=== PATIENT | female | born 1935 | race Caucasian/White ===

== ENCOUNTER 2019-12-24 08:35 | Inpatient (IN) | payer MEDICARE, SELFPAY ==
[2019-12-24] VITALS (18 sets, daily range): BP systolic 114–169; BP diastolic 50–88; PULSE 75–108; RESP 16–20; TEMP 36.4–37.4; O2SAT 93–100; BMI 20.4
--- NOTE | 2019-12-24 08:40 | CTR_ITS ---
PROCEDURE INFORMATION: Exam: CT Abdomen And Pelvis With Contrast Exam date and time: 12/24/2019 8:43 AM Age: 84 years old Clinical indication: Nausea and vomiting; Additional info: Abd pain TECHNIQUE: Imaging protocol: Computed tomography of the abdomen and pelvis with intravenous contrast. Radiation optimization: All CT scans at this facility use at least one of these dose optimization techniques: automated exposure control; mA and/or kV adjustment per patient size (includes targeted exams where dose is matched to clinical indication); or iterative reconstruction. Contrast material: VISI 320; Contrast volume: 75 ml; Contrast route: RT AC; COMPARISON: CT abdomen pelvis wo con [id number] 11/18/2017 11:02 AM RADIATION DOSE METRICS: Total DLP: 457.44 mGy-cm FINDINGS: Inferior thorax: Hyperinflation. Hiatal hernia. Liver: No focal hepatic mass. Gallbladder and bile ducts: Cholelithiasis. No biliary ductal dilatation. Pancreas: No pancreatic mass or ductal dilatation. Spleen: No splenomegaly. Adrenals: Unremarkable adrenals. Kidneys and ureters: Renal cysts, including a 11 mm right lower pole cyst. Marked left hydronephrosis in association with a 10 mm left UPJ calculus. Nonobstructing 1 and 10 mm left renal calculi. Asymmetric infiltration of left perinephric fat and mild fascial thickening. Stomach and bowel: Questionable wall thickening in the nondistended stomach. Diverticulosis and mild sigmoid colon wall thickening. Appendix: No acute appendicitis. Intraperitoneal space: No significant free fluid. Vasculature: Prominent vascular calcification. No abdominal aortic aneurysm. Lymph nodes: Subcentimeter lymph nodes. Bladder: Normal bladder morphology. Reproductive: Status post hysterectomy. Bones/joints: Osteopenia and degenerative change. Grade 1 anterior listhesis of L4 on L5 and L5 on S1. CT/CT abdomen pelvis w con* [id number] IMPRESSION: 1. Marked left hydronephrosis in association with a 10 mm left UPJ calculus. 2. Hiatal hernia. 3. Cholelithiasis. 4. Nonobstructing 1 and 10 mm left renal calculi. 5. Additional findings as described above. Radiation Dose CTDIVOL = (mGy): DLP = 457.44 (mGy-cm)
[2019-12-24 08:56] LABS: Basophils % 0.2 %; Eosinophils % 0.1 %; Hematocrit 45.4 % (37.0-47.0); Hemoglobin 14.2 g/dL (11.5-15.3); Lymphocytes # 0.8 10^3/uL (0.8-4.8); Lymphocytes % 5.7 %; Mean Corpuscular HGB Conc 31.3 g/dL (30.0-36.0); Mean Corpuscular Hemoglobin 29.5 pg (28.0-34.0); Mean Corpuscular Volume 94.2 fL (81-99); Mean Platelet Volume 9.5 fL (7.4-10.4); Monocytes # 0.5 10^3/uL (0.2-0.9); Monocytes % 3.5 %; Neutrophils # 13.1 10^3/uL (1.8-7.7); Neutrophils % 90.2 %; Nucleated Red Blood Cells % 0 %; Platelet Count 269 10^3/cmm (130-400); Red Blood Count 4.82 10^6/uL (4.1-5.3); Red Cell Distribution Width 13.7 % (12.1-15.1); White Blood Count 14.5 10^3/uL (4.0-10.0)
--- NOTE | 2019-12-24 08:56 | CTR_ITS ---
PROCEDURE INFORMATION: Exam: CT Head Without Contrast Exam date and time: 12/24/2019 9:25 AM Age: 84 years old Clinical indication: Altered mental status/memory loss; Additional info: AMS TECHNIQUE: Imaging protocol: Computed tomography of the head without contrast. Radiation optimization: All CT scans at this facility use at least one of these dose optimization techniques: automated exposure control; mA and/or kV adjustment per patient size (includes targeted exams where dose is matched to clinical indication); or iterative reconstruction. COMPARISON: MR charles's wo con [id number] 05/10/2018 9:46 AM RADIATION DOSE METRICS: Total DLP: 671.67 mGy-cm FINDINGS: Brain: Symmetric prominence of the cortical and cerebellar sulci. Small-vessel ischemic change including bilateral basal ganglia lacunar infarcts, which can be better characterized with MRI if clinically indicated. No acute cortical infarct, mass effect, or intracranial hemorrhage. Ventricles: Age-appropriate caliber of the ventricles. Bones/joints: Benign appearing ovoid lytic lesions in the occiput. Sinuses: No sinus fluid. Mastoid air cells: No mastoid effusion. Vasculature: Vascular and dural calcification. Soft tissues: Punctate cutaneous calcification in the left parietal region. CT/CT head wo con* [id number] IMPRESSION: Small-vessel ischemic change including bilateral basal ganglia lacunar infarcts, which can be better characterized with MRI if clinically indicated. Radiation Dose CTDIVOL = (mGy): DLP = 671.67 (mGy-cm)
[2019-12-24 09:11] LABS: Alanine Aminotransferase 28 U/L (0-33); Albumin Level 4.2 g/dL (3.5-5.2); Alkaline Phosphatase 105 IU/L (35-105); Anion Gap 19.9 (5-19); Aspartate Amino Transferase 36 U/L (0-32); Blood Urea Nitrogen 17 mg/dL (8-23); Calcium 10.1 mg/dL (8.5-10.5); Carbon Dioxide 22 mmol/L (22-29); Chloride 100 mmol/L (98-107); Globulin 3.5 g/dL (1.3-4.6); Glucose 127 mg/dL (65-115); Lipase 60 U/L (13-60); Osmolality Calculated 284 mOsm/kg (285-295); Potassium 3.9 mmol/L (3.5-5.1); Sodium 138 mmol/L (136-145); Total Protein 7.7 g/dL (6.6-8.7)
--- NOTE | 2019-12-24 09:18 | ED_ITS ---
HPI - Abdominal Pain General: Chief Complaint: Abdominal Pain Stated Complaint: ABD PAIN Time Seen by Provider: 12/24/19 08:39 History of Present Illness: HPI narrative: 84-year-old lady, lives at home. She complains of belly pain that started yesterday. She is vomited once. She localizes the pain across her upper abdomen. No fever. She has had some chills, but says it is because it is cold in the emergency room. She said she had small amounts of nonbloody liquid stool yesterday. She is also been having some mental status problems for the last few months. Family noted that she has been known to talk to her late , and has been hearing voices. MD elicited complaint: abdominal pain Onset (ago): day(s) (1) Location: Diffuse and Epigastric Quality: cramping Radiation: none Exacerbating factors: nothing Associated Symptoms: Reports diarrhea, nausea and vomiting; Denies dysuria, fever(s) and hematuria Review of Systems Const: Denies: fever(s) Eyes: Denies: change in vision or blurry vision ENMT: Denies: odynophagia, swelling of lips/tongue, bleeding gums, dental pain, change in hearing, epistaxis, post nasal drip or sinus pain Card: Denies: chest pain, palpitations, irregular heart rhythm, edema, swelling of feet/ankles, dyspnea on exertion or orthopnea Resp: Denies: dyspnea, productive cough, non-productive cough or wheezing GI: Reports: nausea, vomiting and diarrhea : Denies: dysuria, urinary frequency, urinary urgency or hematuria Musc: Denies: neck pain, back pain, joint redness or joint warmth Skin/Breast: Reports: pruritus; Denies: rash or erythema Neuro: Reports: confusion; Denies: headache(s), dizziness or vertigo Psych: Reports: visual hallucinations and auditory hallucinations; Denies: anxiety PFSH ED PFSH: Medical History (Updated 12/24/19 @ 11:36 by Michael Syed MD) CAD (coronary artery disease) Chronic kidney disease, stage II (mild) Dementia GERD (gastroesophageal reflux disease) Hyperlipidemia Hypertension Surgical History (Updated 12/24/19 @ 11:36 by Michael Syed MD) History of coronary angioplasty History of hysterectomy History of knee surgery History of tubal ligation Social History Smoking and tobacco status: former smoker Physical Exam Const: GENERAL APPEARANCE: well developed ORIENTATION/CONSCIOUSNESS: Yes oriented to person and Yes oriented to place HENMT: COMMON NORMALS: normocephalic, external ears normal and Normal external nose present HEAD & SCALP: normocephalic FACE & SINUS: normal facial exam NOSE: Normal external nose present and No nasal discharge present EXTERNAL EAR: Yes external ears normal MOUTH: tongue normal TEETH & GINGIVA: no abnormal tooth and associated gingiva THROAT: posterior oropharynx normal; no peritonsillar mass Eye: COMMON NORMALS: Equal, round and reactive pupils present, EOMs intact bilaterally and conjunctivae normal EYELID: eyelids normal CONJUNCTIVA: Yes conjunctivae normal PUPIL: Yes Equal, round and reactive pupils present Neck/C-Spine: GENERAL: No tracheal deviation Chest: COMMONS NORMALS: normal inspection of the chest CHEST: No tenderness Resp: COMMON NORMALS: clear to auscultation bilaterally EFFORT & INS PECTION: No tachypneic, No respiratory distress, No retractions, No uses accessory muscles and No tracheal deviation AUSCULTATION: clear to auscultation bilaterally, no rhonchi, no wheezes and lung sounds not diminished Cardio: COMMON NORMALS: regular rate and regular rhythm RATE: regular rate RHYTHM: regular rhythm HEART SOUNDS: no murmurs PERIPHERAL PULSES: radial pulses present GI: INSPECTION: No abdominal distension AUSCULTATION: No Hyperactive bowel sounds present and No Hypoactive bowel sounds present PALPATION: Yes Tenderness to palpation present (GI) Details: LLQ and LUQ, No Guarding due to palpation present (GI) and No Rigid due to palpation PERCUSSION: no dullness to percussion and no tympanic to percussion Neuro: SENSORIUM/ORIENTATION: Yes oriented to person and Yes oriented to place Psych: COMMON NORMALS: mental status grossly normal Skin: COMMON NORMALS: no rashes or lesions noted GENERAL SKIN EXAM: no rashes or lesions noted Course Consultations: Consultation #1: ayden Consultation #2: thierry Vital Signs: Vital signs: Vital Signs Temperature 98.3 F 12/24/19 08:42 Pulse Rate 100 12/24/19 08:42 Respiratory Rate 16 12/24/19 08:42 Blood Pressure 161/68 12/24/19 08:42 Pulse Oximetry 100 12/24/19 08:42 MDM - Abdominal Pain MDM Narrative: Medical decision making narrative: 84-year-old lady presents with nausea and belly pain. She also has some mental status change. No fever. White count of 14.5 with 90% neutrophils. Urine, which was a in and out cath, but appeared somewhat contaminated, shows likely infection. CT shows a 10 mm obstructing UPJ stone with hydronephrosis on the left. Have spoken with urology and hospitalist team. She has had Zosyn here Lab Data: Labs: Lab Results 12/24/19 12/24/19 12/24/19 Range/Units 08:45 08:45 08:45 WBC 14.5 H (4.0-10.0) 10^3/ uL RBC 4.82 (4.1-5.3) 10^6/u L Hgb 14.2 (11.5-15.3) g/dL Hct 45.4 (37.0-47.0) % MCV 94.2 (81-99) fL MCH 29.5 (28.0-34.0) pg MCHC 31.3 (30.0-36.0) g/dL RDW 13.7 (12.1-15.1) % Plt Count 269 (130-400) 10^3/c mm MPV 9.5 (7.4-10.4) fL Neut % (Auto) 90.2 % Lymph % (Auto) 5.7 % [place] % (Auto) 3.5 % Eos % (Auto) 0.1 % Baso % (Auto) 0.2 % Neut # (Auto) 13.1 H (1.8-7.7) 10^3/u L Lymph # (Auto) 0.8 (0.8-4.8) 10^3/u L [place] # (Auto) 0.5 (0.2-0.9) 10^3/u L Eos # (Auto) 0.0 (0.0-0.8) 10^3/u L Baso # (Auto) 0.0 (0.0-0.1) 10^3/u L Nucleated RBC % (a uto) 0 % Nucleated RBCs # 0.0 /100WBC Sodium 138 (136-145) mmol/L Potassium 3.9 (3.5-5.1) mmol/L Chloride 100 (98-107) mmol/L Carbon Dioxide 22 (22-29) mmol/L Anion Gap 19.9 H (5-19) BUN 17 (8-23) mg/dL Creatinine 1.3 H (0.5-0.9) mg/dL Glucose 127 H (65-115) mg/dL Calculated Osmolal ity 284 L (285-295) mOsm/k g Lactate 2.0 (0.5-2.2) mmol/L Calcium 10.1 (8.5-10.5) mg/dL Total Bilirubin 1.0 (0.15-1.2) mg/dL AST 36 H (0-32) U/L ALT 28 (0-33) U/L Alkaline Phosphata se 105 (35-105) IU/L Total Protein 7.7 (6.6-8.7) g/dL Albumin 4.2 (3.5-5.2) g/dL Globulin 3.5 (1.3-4.6) g/dL Lipase 60 (13-60) U/L Urine Color (Yellow) Urine Appearance (CLEAR) Urine pH (5-7) Ur Specific [place]it y (1.005-1.030) Urine Protein (Negative) Urine Glucose (UA) (Normal) Urine Ketones (Negative) Urine Blood (Negative) Urine Nitrate (Negative) Urine Bilirubin (NEGATIVE) Prot Sulfosalicyli c Acd (Negative) Urine Urobilinogen (Negative) mg/dL Ur Leukocyte Jazmine ase (Negative) Urine RBC (0-2) /hpf Urine WBC (0-5) /hpf Ur Squamous Epith Cells (0-5) Ur Transition Epit h Cell /hpf Urine Bacteria (NONE) Urine Mucus 12/24/19 Range/Units 09:00 WBC (4.0-10.0) 10^3/ uL RBC (4.1-5.3) 10^6/u L Hgb (11.5-15.3) g/dL Hct (37.0-47.0) % MCV (81-99) fL MCH (28.0-34.0) pg MCHC (30.0-36.0) g/dL RDW (12.1-15.1) % Plt Count (130-400) 10^3/c mm MPV (7.4-10.4) fL Neut % (Auto) % Lymph % (Auto) % [place] % (Auto) % Eos % (Auto) % Baso % (Auto) % Neut # (Auto) (1.8-7.7) 10^3/u L Lymph # (Auto) (0.8-4.8) 10^3/u L [place] # (Auto) (0.2-0.9) 10^3/u L Eos # (Auto) (0.0-0.8) 10^3/u L Baso # (Auto) (0.0-0.1) 10^3/u L Nucleated RBC % (a uto) % Nucleated RBCs # /100WBC Sodium (136-145) mmol/L Potassium (3.5-5.1) mmol/L Chloride (98-107) mmol/L Carbon Dioxide (22-29) mmol/L Anion Gap (5-19) BUN (8-23) mg/dL Creatinine (0.5-0.9) mg/dL Glucose (65-115) mg/dL Calculated Osmolal ity (285-295) mOsm/k g Lactate (0.5-2.2) mmol/L Calcium (8.5-10.5) mg/dL Total Bilirubin (0.15-1.2) mg/dL AST (0-32) U/L ALT (0-33) U/L Alkaline Phosphata se (35-105) IU/L Total Protein (6.6-8.7) g/dL Albumin (3.5-5.2) g/dL Globulin (1.3-4.6) g/dL Lipase (13-60) U/L Urine Color Yellow (Yellow) Urine Appearance Hazy A (CLEAR) Urine pH 8 H (5-7) Ur Specific Gravit y 1.015 (1.005-1.030) Urine Protein Trace (Negative) Urine Glucose (UA) Norm (Normal) Urine Ketones 1+ H (Negative) Urine Blood 3+ H (Negative) Urine Nitrate Negative (Negative) Urine Bilirubin Neg (NEGATIVE) Prot Sulfosalicyli c Acd Trace (Negative) Urine Urobilinogen Norm (Negative) mg/dL Ur Leukocyte Jazmine ase 2+ H (Negative) Urine RBC 10-15 H (0-2) /hpf Urine WBC 40-55 H (0-5) /hpf Ur Squamous Epith Cells 25-40 H (0-5) Ur Transition Epit h Cell 5-10 /hpf Urine Bacteria 2+ H (NONE) Urine Mucus 2+ Coding Level of Care Code ED Network Analyst for Chg Fwd Exam Comprehensive
[2019-12-24 09:26] LABS: Bilirubin Urine Neg (NEGATIVE); Blood Urine 3+ (Negative); Glucose Urine UA Norm (Normal); Ketones Urine 1+ (Negative); Nitrate Urine Negative (Negative); Protein Urine Trace (Negative); Specific Gravity, Urine 1.015 (1.005-1.030); Urine Appearance Hazy (CLEAR); Urine Color Yellow (Yellow); Urobilinogen Urine Norm (Negative); pH Urine 8 (5-7)
[2019-12-24 09:27] LABS: Add Urine Microscopic? YES; Leukocyte Esterase Urine 2+ (Negative); Sulfosalicylic Acid Urine Trace (Negative)
[2019-12-24 09:29] LABS: Add Urine Culture? No; Bacteria Urine 2+; Mucus Urine 2+; Squamous Epithelial Cell Urine 25-40 (0-5); WBC Urine 40-55 /hpf (0-5)
[2019-12-24] MEDS: ondansetron 2 mg/ML SDV 2 mL 4 MG IVP (09:40)
[2019-12-24] MEDS: iodixanol 320 mg/mL 100mL Btl IV (10:07)
[2019-12-24] MEDS: piperacillin-tazobactam 3.375 GM in sodium chloride 0.9% (plus) 50 ML IV (10:46)
--- NOTE | 2019-12-24 11:30 | ECG_ITS ---
Measurements Intervals [place] Rate: 94 P: 58 TX: 173 QRS: 34 QRSD: 76 T: 71 QT: 354 QTc: 444 SINUS RHYTHM Compared to ECG 12/29/2017 11:21:25 Sinus bradycardia no longer present Electronically Signed On 12-25-2019 7:50:09 CDT by Keith Coronel M.D. [email or web address]
--- NOTE | 2019-12-24 11:30 | P.HP_ITS ---
Providers/Chief Complaint Primary Care Provider: Rafael Fatima MD Chief Complaint: ABD PAIN History of Present Illness Sheri Montes is a 84 year old female who presents to the emergency department with abdominal pain, vomiting. There was some concern of chills. Daughter reports she had a fever as well, when the ambulance service picked her up. She has been sick since yesterday with vomiting and abdominal pain. Patient reports she feels better currently. Lately there is been some issues with hearing voices, cognitive concerns. She has some underlying dementia. No history of COVID exposure. Review of Systems General: Reports: 10 or more systems reviewed and unremarkable except in HPI and below Const: Reports: fever(s) and chills Eyes: Denies: change in vision ENMT: Denies: throat pain Card: Denies: chest pain Resp: Denies: dyspnea or productive cough GI: Reports: abdominal pain, nausea and vomiting; Denies: hematemesis, coffee ground emesis, hematochezia or melena : Denies: flank pain Skin/Breast: Denies: rash Neuro: Denies: headache(s) Psych: Denies: anxiety Endo: Denies: polyuria Patrick/Lymph: Denies: easy bruising All/Imm: Denies: urticaria Medications/Allergies Home Medications Medication Instructions Recorded Confirmed Last Taken Type amlodipine 5 mg PO DAILY 12/24/19 12/24/19 12/22/19 History aspirin 40.5 mg PO DAILY 12/24/19 12/24/19 12/22/19 History donepezil 5 mg PO DAILY 12/24/19 12/24/19 12/22/19 History famotidine 20 mg PO DAILY 12/24/19 12/24/19 12/22/19 History metoprolol succinate 50 mg PO DAILY 12/24/19 12/24/19 12/22/19 History rosuvastatin 40 mg PO DAILY 12/24/19 12/24/19 12/22/19 History Allergies Allergy/AdvReac Type Severity Reaction Status Date / Time alendronate sodium Allergy Unknown Verified 12/24/19 08:42 [From Fosamax] tramadol Allergy Unknown Verified 12/24/19 08:46 PFSH Acute PFSH: Medical History (Updated 12/24/19 @ 11:52 by Michael Syed MD) CAD (coronary artery disease) Chronic kidney disease, stage II (mild) Dementia GERD (gastroesophageal reflux disease) Hyperlipidemia Hypertension Surgical History (Updated 12/24/19 @ 11:36 by Michael Syed MD) History of coronary angioplasty History of hysterectomy History of knee surgery History of tubal ligation Family History (Updated 12/24/19 @ 11:48 by Michael Syed MD) Other CAD (coronary artery disease) Social History (Updated 12/24/19 @ 11:48 by Michael Syed MD) Smoking and tobacco status: former smoker Alcohol intake: never Substance/Drug Use: never Vitals/I&O/Wt Last Vital Signs Temp 98.3 F 12/24/19 08:42 Pulse 100 12/24/19 08:42 Resp 16 12/24/19 08:42 BP 161/68 12/24/19 08:42 Pulse Ox 100 12/24/19 08:42 Weight last 48 hrs Weight 48.988 kg Physical Exam Narrative: EXAM NARRATIVE: General exam is an elderly female, in no apparent distress HEENT: Pupils equally round. Oropharynx clear. Neck is supple no lymphadenopathy or thyromegaly Cardiovascular regular rate and rhythm without murmur, no S3 or S4 Lungs clear no wheezing or crackles Abdomen is soft positive bowel sounds. No obvious organomegaly was deferred Extremities show no cyanosis clubbing or edema, cap refill brisk. Skin no rash Neuro no focal deficits Data : 12/24/19 08:45 12/24/19 08:45 Other data: AST slightly high at 36. Urinalysis demonstrates 10-15 reds, 40-55 white blood cells, 25-40 squamous and 2+ bacteria Head CT nothing acute. Old lacunar infarcts, small vessel ischemic change. CT abdomen with marked left hydronephrosis, hiatal hernia, cholelithiasis, 10 mm left UPJ stone A&P Assessment and plan (1) Hydronephrosis, left: Urgent neurology consultation Plan to go to the OR for stent Status: Acute (2) UTI (urinary tract infection): Rocephin 2 g IV every 24 hours Urine culture Status: Acute (3) Leukocytosis: Secondary to above Urine culture Blood culture Status: Acute Additional A&P Information Coronary artery disease History of GERD Hypertension Hyperlipidemia Dementia. Check TSH and B12 Multiple other medical problems as outlined above Discussed with patient CODE STATUS. She is allow natural . Certainly any procedures or interventions that we have time to discuss should be discussed Heparin for DVT prophylaxis following surgery Attestations Medical Necessity Statement*: Will need greater than 2 midnight stay for treatment of UTI with obstruction Time Spent in Patient Care: Greater than 35 minutes Coding Level of Care Code Acute Social Worker Masters for Caroline Fwd Diagnoses Hydronephrosis, left N13.30 UTI (urinary tract infection) N39.0 Leukocytosis D72.829
--- NOTE | 2019-12-24 11:46 | P.ANESASSM_ITS ---
Pre-Anesthetic Assessment Pre-Anesthetic Assessment: Height/Weight: Height 1.55 m Weight 48.988 kg Temp Pulse Resp BP Pulse Ox 98.3 F 100 16 161/68 100 12/24/19 08:42 12/24/19 08:42 12/24/19 08:42 12/24/19 08:42 12/24/19 08:42 Proposed Procedure: Operation Date: 12/24/19 12:15 Proposed Procedures p Cystoscopy(Not Applicable) - Nolan Aragon MD s Ureteral Stent Placement(Not Applicable) - Nolan Aragon MD Social: Social History: No alcohol and No tobacco Exam: Pre-Anes Outpt Exam: alert, oriented x 3, clear to auscultation bilaterally and regular rate & rhythm Airway: Submandibular: WNL Cervical ROM: WNL MP: 2 Dentition: Partials (upper) History/ROS: No significant history except as noted Pulmonary: Pulmonary: FIGUEROA and SOB CV/HEM: CV/HEM: CAD (stents 2014, stable since) and HTN : : Chronic renal Insufficiency Hepatic: Hepatic: None reported GI: GI: None reported Metabolic: Metabolic: Hyperlipidemia Musc/skel: Musc/skel: OA/DJD and Weakness (gen) Neuropsych: Neuropsych: Dementia Anesthetic Plan: ASA status: 4E Anesthesia: Anesthesia Evaluation and General Risk of > 500 ml blood loss (7ml/kg in children): No PFSH Anesthesia PFSH: Medical History (Updated 12/24/19 @ 11:36 by Michael Syed MD) CAD (coronary artery disease) Chronic kidney disease, stage II (mild) Dementia GERD (gastroesophageal reflux disease) Hyperlipidemia Hypertension Surgical History (Updated 12/24/19 @ 11:36 by Michael Syed MD) History of coronary angioplasty History of hysterectomy History of knee surgery History of tubal ligation Family History (Updated 12/24/19 @ 11:48 by Michael Syed MD) Other CAD (coronary artery disease) Social History Smoking and tobacco status: former smoker Data Anesthesia CBC & Chem 7: 12/24/19 08:45 12/24/19 08:45 Other Labs: Laboratory Results - last 48 hr 12/24/19 12/24/19 12/24/19 08:45 08:45 08:45 WBC 14.5 H RBC 4.82 Hgb 14.2 Hct 45.4 MCV 94.2 MCH 29.5 MCHC 31.3 RDW 13.7 Plt Count 269 MPV 9.5 Neut % (Auto) 90.2 Lymph % (Auto) 5.7 [place] % (Auto) 3.5 Eos % (Auto) 0.1 Baso % (Auto) 0.2 Neut # (Auto) 13.1 H Lymph # (Auto) 0.8 [place] # (Auto) 0.5 Eos # (Auto) 0.0 Baso # (Auto) 0.0 Nucleated RBC % (auto) 0 Nucleated RBCs # 0.0 Sodium 138 Potassium 3.9 Chloride 100 Carbon Dioxide 22 Anion Gap 19.9 H BUN 17 Creatinine 1.3 H Glucose 127 H Calculated Osmolality 284 L Lactate 2.0 Calcium 10.1 Total Bilirubin 1.0 AST 36 H ALT 28 Alkaline Phosphatase 105 Total Protein 7.7 Albumin 4.2 Globulin 3.5 Lipase 60 Urine Color Urine Appearance Urine pH Ur Specific [place] Urine Protein Urine Glucose (UA) Urine Ketones Urine Blood Urine Nitrate Urine Bilirubin Prot Sulfosalicylic Acd Urine Urobilinogen Ur Leukocyte Esterase Urine RBC Urine WBC Ur Squamous Epith Cells Ur Transition Epith Cell Urine Bacteria Urine Mucus 12/24/19 09:00 WBC RBC Hgb Hct MCV MCH MCHC RDW Plt Count MPV Neut % (Auto) Lymph % (Auto) [place] % (Auto) Eos % (Auto) Baso % (Auto) Neut # (Auto) Lymph # (Auto) [place] # (Auto) Eos # (Auto) Baso # (Auto) Nucleated RBC % (auto) Nucleated RBCs # Sodium Potassium Chloride Carbon Dioxide Anion Gap BUN Creatinine Glucose Calculated Osmolality Lactate Calcium Total Bilirubin AST ALT Alkaline Phosphatase Total Protein Albumin Globulin Lipase Urine Color Yellow Urine Appearance Hazy A Urine pH 8 H Ur Specific [place] 1.015 Urine Protein Trace Urine Glucose (UA) Norm Urine Ketones 1+ H Urine Blood 3+ H Urine Nitrate Negative Urine Bilirubin Neg Prot Sulfosalicylic Acd Trace Urine Urobilinogen Norm Ur Leukocyte Esterase 2+ H Urine RBC 10-15 H Urine WBC 40-55 H Ur Squamous Epith Cells 25-40 H Ur Transition Epith Cell 5-10 Urine Bacteria 2+ H Urine Mucus 2+ Cardiac Studies: No Data to Display
[2019-12-24] MEDS: sodium chloride 0.9% 1,000 ML 100 ML IV (12:03)
--- NOTE | 2019-12-24 12:07 | PM.CONSULT ---
Providers/Reason For Consult Consulting Physican/Specialty*: Urology/Mahesh Reason for Consult*: Obstructive left pyelonephritis with large left proximal ureteral stone Attending Physician: Nolan Aragon MD Primary Care Provider: Rafael Fatima MD History of Present Illness History of Present Illness Sheri Montes is a 84 year old female who I have seen sometime in the past but currently records are not available. She presented to the emergency department today with fever, chills, abdominal pain nausea and vomiting. Urinalysis was consistent with an infection. A CT scan revealed a large left proximal ureteral stone with high-grade obstructive changes, perirenal stranding and inflammatory changes. White count was elevated at 14. She was hemodynamically stable but felt to be at high risk for septic complications and for that reason it was recommended that she undergo emergency left ureteral stenting. I spoke with her daughter who is her medical guardian and she was familiar with stone disease. She gave consent for the above procedure. I reviewed the possibility of difficulty getting a wire past the stone necessitating more aggressive endoscopy or in the worse case scenario left percutaneous nephrostomy tube under the auspices of interventional radiologist at a larger institution. The patient expressed good understanding regarding my explanation and has given informed consent to proceed Review of Systems Const: Reports: fever(s), chills and malaise Eyes: Denies: change in vision or blurry vision ENMT: Denies: throat pain or odynophagia Card: Denies: chest pain or palpitations Resp: Denies: dyspnea, productive cough or non-productive cough GI: Reports: abdominal pain, nausea and vomiting; Denies: hematemesis : Reports: flank pain; Denies: urinary urgency Musc: Reports: back pain; Denies: neck pain or limited range of motion Skin/Breast: Denies: rash or erythema Neuro: Reports: confusion; Denies: seizure-like activity Psych: Denies: anxiety or depression Endo: Denies: flushing or hot flashes Patrick/Lymph: Denies: easy bruising All/Imm: Denies: urticaria or throat swelling Meds/Allergies Home Medications and Allergies Home Medications Medication Instructions Recorded Confirmed Last Taken Type amlodipine 5 mg PO DAILY 12/24/19 12/24/19 12/22/19 History aspirin 40.5 mg PO DAILY 12/24/19 12/24/19 12/22/19 History donepezil 5 mg PO DAILY 12/24/19 12/24/19 12/22/19 History famotidine 20 mg PO DAILY 12/24/19 12/24/19 12/22/19 History metoprolol succinate 50 mg PO DAILY 12/24/19 12/24/19 12/22/19 History rosuvastatin 40 mg PO DAILY 12/24/19 12/24/19 12/22/19 History Allergies Allergy/AdvReac Type Severity Reaction Status Date / Time alendronate sodium Allergy Unknown Verified 12/24/19 08:42 [From Fosamax] tramadol Allergy Unknown Verified 12/24/19 08:46 Current Medications Current Medications Generic Name Dose Route Start Last Admin Trade Name Freq PRN Reason Stop Dose Admin Sodium Chloride 1,000 mls @ 100 mls/hr 12/24/19 12:00 12/24/19 12:03 Sodium Chloride 0.9% IV 12/25/19 11:59 100 mls/hr .Q10H EHSAN Administration PFSH Acute PFSH: Medical History CAD (coronary artery disease) Chronic kidney disease, stage II (mild) Dementia GERD (gastroesophageal reflux disease) Hyperlipidemia Hypertension Surgical History History of coronary angioplasty History of hysterectomy History of knee surgery History of tubal ligation Family History Other CAD (coronary artery disease) Social History Smoking and tobacco status: former smoker Alcohol intake: never Substance/Drug Use: never Vitals/I&O/Wt Last Vital Signs Temp 98.3 F 12/24/19 08:42 Pulse 97 12/24/19 12:00 Resp 16 12/24/19 12:00 BP 147/66 12/24/19 12:00 Pulse Ox 98 12/24/19 12:00 12/23/19 12/24/19 12/24/19 22:59 06:59 14:59 Intake Total 50 / 50 Balance 50 / 50 Weight last 48 hrs Weight 108 lb Physical Exam Const: COMMON NORMALS: no acute distress, alert and well nourished GENERAL APPEARANCE: well kempt and well developed ORIENTATION/CONSCIOUSNESS: not confused HENMT: COMMON NORMALS: normocephalic and atraumatic HEAD & SCALP: normocephalic and atraumatic Eye: COMMON NORMALS: no scleral icterus Neck/C-Spine: GENERAL: Yes normal visual inspection Lymph: LYMPHATIC: no lymphadenopathy noted and no lymphedema noted Resp: COMMON NORMALS: normal respiratory effort and clear to auscultation bilaterally EFFORT & INSPECTION: Yes able to speak in complete sentences, No respiratory distress and No labored AUSCULTATION: clear to auscultation bilaterally Cardio: COMMON NORMALS: regular rate, regular rhythm and No murmurs present (Cardio) RATE: regular rate RHYTHM: regular rhythm BRUITS: no carotid bruits GI: COMMON NORMALS: Soft to palpation AUSCULTATION: Yes normoactive bowel sounds PALPATION: Yes Soft to palpation and Yes Tenderness to palpation present (GI) Details: LLQ and LUQ : COMMON NORMALS: No no CVA tenderness BLADDER/KIDNEY EXAM: No no CVA tenderness Back/Pelvis: COMMON NORMALS: negative for no CVA tenderness Extremity: COMMON NORMALS: no clubbing, cyanosis or edema Neuro: SENSORIUM/ORIENTATION: Yes alert Psych: COMMON NORMALS: mental status grossly normal APPEARANCE: Yes grossly normal and Yes well kempt ATTITUDE: Yes calm and Yes engaged Skin: COMMON NORMALS: no rashes or lesions noted and turgor normal GENERAL SKIN EXAM: no rashes or lesions noted, turgor normal and no mottling Data Imaging^: CT Abd/Pel: My impression: Large left proximal ureteral stone with obstructive changes, moderate to severe hydronephrosis, inflammatory changes of perirenal stranding etc. Stone too large to pass. A&P Assessment and plan (1) Left ureteral calculus: Large left proximal ureteral stone with obstructive changes and UTI. To the operating room emergently for left ureteral stent placement and other indicated procedures pending difficulty of passing a wire etc. Status: Acute (2) UTI (urinary tract infection): Status: Acute Qualifiers: Urinary tract infection type: acute pyelonephritis Qualified Code(s): N10 - Acute pyelonephritis (3) Hydronephrosis, left: Status: Acute Coding Level of Care Code Acute Stain Dipper for [facility] Fwd Exam Comprehensive Diagnoses Left ureteral calculus N20.1 UTI (urinary tract infection) N10 Urinary tract infection type: acute pyelonephritis Hydronephrosis, left N13.30
--- NOTE | 2019-12-24 12:16 | SC_ITS ---
WS: [id number] C-arm [place] for Urology REASON FOR EXAM: intra-op FINDINGS: Intraoperative images shows hydronephrosis of the left kidney with a stent seen in the pelv is of the kidney in good position. Fluoroscopy time was 14 seconds SC/C-arm [place] for Urology IMPRESSION: Hydronephrosis of the left kidney with a stent in good position.
--- NOTE | 2019-12-24 12:40 | P.OP_ITS ---
Operative Report Date of procedure: December 24, 2019 Pre-op Diagnosis: Obstructive Pyelonephritis, large left proximal ureteral stone Post-op diagnosis: same Procedure Done: Cystoscopy and Left ureteral stent placement Implants: LEFT ureteral stent Surgeon: Mahesh Anesthesia: General Estimated blood loss: Minimal Urine output: Not measured Complications: None Findings: 1. Grossly purulent urine in the bladder. 2. Stone in expected position. Easily bypassed with guidewire and stent. Stone was pushed up into the renal pelvis. Stent position confirmed with dye already in the urine showing opacification of the collecting system Condition: stable Disposition: PACU Brief History: Sheri is a very pleasant 84-year-old white female who presented to the emergency department today with evidence of obstructive left pyelonephritis and CT scan demonstrated obstructing large left proximal ureteral stone with urine grossly infected. White count was elevated. She was hemodynamically stable but because of the concern for progression to full-blown sepsis from the obstructive pyelonephritis it was elected to proceed emergently to the operating room for left ureteral stent placement. I spoke to her daughter Jessica in [place] who is her medical guardian who agreed. Procedure: After routine preoperative evaluation examination and obtaining of informed consent obtaining of informed consent she was taken to the operating suite on 12/24/2019 where general anesthesia was administered without difficulty after appropriate timeout was performed, SCDs confirmed to be functioning, p reoperative antibiotics administered, beta-naomy protocol confirmed. Prepped and draped in the usual sterile fashion in dorsolithotomy position pain careful attention to avoiding pressure points. 21 Georgian cystoscope with 30 degree lens was introduced into the urethral meatus and advanced into the bladder under videoscopy. Bladder showed grossly purulent urine with some infectious debris floating in the urine. After draining the bladder the flexible tip guidewire was then passed up the left ureter easily bypassing the stone and pushing it into the renal pelvis. The wire was seen to curl in the upper pole calyx. The collecting system was opacified after intravenous contrast was given in the emergency department during CT scan. A 7 Georgian by 24 cm double-pigtail stent was advanced over the guidewire through the cystoscope into appropriate position as confirmed via fluoroscopy and cystoscopy. Grossly purulent urine was draining around and through the stent. Bladder was drained with a Martel catheter to facilitate evacuation of purulence. Tolerated the procedure well without complications. No hemodynamic instability. Awakened in the operating room and returned to the recovery room in stable condition. It is anticipated that she will be transferred to the floor from the PACU. Hospitalist notified.
[2019-12-24] MEDS: cefTRIAXone 2,000 MG in sodium chloride 0.9% (plus) 50 ML 100 MG IV (13:44)
[2019-12-24] MEDS: atorvastatin 40 mg Tablet 80 MG DOBHOFF (13:44)
[2019-12-24] MEDS: heparin 5,000 unit/mL INJ 1 mL 5000 UNIT SUBCUT (13:48)
[2019-12-24 14:36] LABS: Add On to Lab Order(s) Added
[2019-12-24 14:58] LABS: Thyroid Stimulating Hormone 1.29 uIU/mL (0.27-4.20); Vitamin B12 450 pg/mL (232-1245)
[2019-12-24 15:11] LABS: Folate Level 11.1 ng/mL (4.8-37.3)
--- NOTE | 2019-12-24 18:03 | NUR.SHIFT ---
SHIFT SUMMARY PATIENT HAS DONE WELL SINCE ARRIVING TO THE FLOOR. URINE WAS BLOODY UPON ARRIVAL, BUT HAS BECAME YELLOW WITH SMALL AMOUNT OF SEDIMENT. PATIENT HAS NO COMPLAINTS OF PAIN. 400ML OF URINE OUTPUT AT THIS TIME. CURRENTLY RESTING IN BED.
[2019-12-25] VITALS (8 sets, daily range): BP systolic 119–154; BP diastolic 48–82; PULSE 60–74; RESP 16–19; TEMP 36.5–36.7; O2SAT 95–99
[2019-12-25] MEDS: sodium chloride 0.9% 1,000 ML 75 ML IV ×2 (03:23→15:38)
[2019-12-25] MEDS: heparin 5,000 unit/mL INJ 1 mL 5000 UNIT SUBCUT ×2 (05:47→15:38)
[2019-12-25 05:55] LABS: Basophils % 0.1 %; Hematocrit 35.7 % (37.0-47.0); Lymphocytes # 0.6 10^3/uL (0.8-4.8); Lymphocytes % 3.4 %; Mean Corpuscular HGB Conc 30.8 g/dL (30.0-36.0); Mean Corpuscular Hemoglobin 29.6 pg (28.0-34.0); Mean Platelet Volume 10.2 fL (7.4-10.4); Monocytes # 0.7 10^3/uL (0.2-0.9); Monocytes % 3.8 %; Neutrophils # 16.4 10^3/uL (1.8-7.7); Neutrophils % 92.1 %; Nucleated Red Blood Cells % 0 %; Platelet Count 214 10^3/cmm (130-400); Red Blood Count 3.72 10^6/uL (4.1-5.3); Red Cell Distribution Width 13.9 % (12.1-15.1); White Blood Count 17.8 10^3/uL (4.0-10.0)
[2019-12-25 06:18] LABS: Anion Gap 13.9 (5-19); Blood Urea Nitrogen 24 mg/dL (8-23); Carbon Dioxide 23 mmol/L (22-29); Chloride 107 mmol/L (98-107); Glucose 119 mg/dL (65-115); Osmolality Calculated 288 mOsm/kg (285-295); Potassium 3.9 mmol/L (3.5-5.1); Sodium 140 mmol/L (136-145)
[2019-12-25] MEDS: famotidine 20 mg Tablet PO (07:46)
[2019-12-25] MEDS: amlodipine 5 mg Tablet PO (07:46)
[2019-12-25] MEDS: atorvastatin 40 mg Tablet 80 MG DOBHOFF (07:46)
[2019-12-25] MEDS: metoprolol succinate ER (24 HR) 50 mg Tablet PO (07:47)
[2019-12-25] MEDS: donepezil 5 MG Tablet PO (07:47)
[2019-12-25] MEDS: aspirin 81 mg Chew Tablet 40.5 MG PO (07:47)
--- NOTE | 2019-12-25 08:26 | P.PN_ITS ---
Subjective Subjective: Interval history: Postoperative day #1 emergency left ureteral stent placement for obstructive pyelonephritis. Large amount of purulent material drained. Overall has done well. No fever spikes. White count did increase to 17 but that is not unexpected. She states that overall she is feeling better. Appetite returning. No chest pain, shortness of breath. Has had resolution of the left renal colicky symptoms and nausea and vomiting. Still feels quite tired. No changes in her bowel habits. Medications: Reviewed: Yes Vitals/I&O/Wt Last Vital Signs Temp 98.1 F 12/25/19 08:00 Pulse 70 12/25/19 08:00 Resp 19 H 12/25/19 08:00 BP 149/82 12/25/19 08:00 Pulse Ox 96 12/25/19 08:00 12/24/19 12/25/19 12/25/19 22:59 06:59 14:59 Intake Total 340 / 390 120 / 120 Output Total 400 / 400 300 / 700 Balance -60 / -10 -300 / -310 120 / 120 Weight last 48 hrs Weight 108 lb Physical Exam Const: COMMON NORMALS: no acute distress, alert and well nourished GENERAL APPEARANCE: well kempt and well developed ORIENTATION/CONSCIOUSNESS: not confused HENMT: COMMON NORMALS: normocephalic and atraumatic HEAD & SCALP: normocephalic and atraumatic Eye: COMMON NORMALS: conjunctivae normal and no scleral icterus CONJ UNCTIVA: Yes conjunctivae normal Neck/C-Spine: GENERAL: Yes normal visual inspection Resp: COMMON NORMALS: normal respiratory effort EFFORT & INSPECTION: No labored and No Actively coughing Extremity: COMMON NORMALS: no clubbing, cyanosis or edema Neuro: SENSORIUM/ORIENTATION: Yes alert Psych: COMMON NORMALS: mental status grossly normal APPEARANCE: Yes grossly normal and Yes well kempt ATTITUDE: Yes calm and Yes engaged Skin: COMMON NORMALS: no rashes or lesions noted and no jaundice GENERAL SKIN EXAM: no rashes or lesions noted Urinary Catheter Management^: Martel: Cath Placed During This Visit: yes Reason for Continuing Indwelling Catheter: Acute Urinary Retention or Obstruction Urinary Catheter Date of Insertion: 12/24/19 Urinary Catheter Time of Insertion: 12:38 Data : 12/25/19 05:17 12/25/19 05:17 Micro: Microbiology 12/24/19 14:32 Blood Culture - Preliminary Blood SPECIMEN COLLECTED 12/24/19 14:25 Blood Culture - Preliminary Blood SPECIMEN COLLECTED A&P Assessment and plan (1) Left ureteral calculus: Large left proximal ureteral stone with obstructive changes and UTI. Status post emergency left ureteral stenting. Stone RADIOPAQUE on FLUOROSCOPY Clinically improved today. Continue IV antibiotics. Will maintain ureteral stent until plans made for definitive therapy for the stone. Status: Acute (2) UTI (urinary tract infection): Cultures pending. Status: Acute Qualifiers: Urinary tract infection type: acute pyelonephritis Qualified Code(s): N10 - Acute pyelonephritis (3) Hydronephrosis, left: Secondary to large left ureteral stone in the UPJ and complicated by UTI. Status: Acute Attestations Medical Necessity Statement*: See attending Coding Level of Care Code Acute Gun Tester for [facility] Imelda Diagnoses Left ureteral calculus N20.1 UTI (urinary tract infection) N10 Urinary tract infection type: acute pyelonephritis Hydronephrosis, left N13.30
--- NOTE | 2019-12-25 12:06 | PC.CHAP ---
Pastoral Care Encounter/Spiritual Assessment Type of Contact [] Declined scratch finisher visit [] Patient/Family/Request visit [] Outpatient visit [] Follow-up visit [] Physician referral [] Code/Alert [X] Routine visit [] Staff referral [] Actively dying [] Patient sleeping [] Family support [] [] Out of room [] Palliative care [] [] Receiving care in room [] Pre-surgical visit [] Trauma [] Long length of stay [] ICU visit [] Other: Relational/Emotional Strength [X] Patient feels connected with others/family/visitors/staff [] Distress [] Loneliness/isolation [] Abandonment Spirituality of Patient [X] Person of Drea [X] Attends Christianity of their Drea [X] Believes in Prayer [] Reads Bible or Scientologist materials [] There are Spiritual issues to be addressed Digital Asset Manager Interventions [] Prayer [X] Active listening [X] Non-anxious presence [] Spiritual/emotional support [] Crisis/trauma care [] Spiritual counseling [] Bereavement support [] Provided bereavement packet [] Provided Bible/devotional materials [] Provided toy/stuffed animal, coloring book to patient or family member [] Provided Communion [] Anointing/[place] [] Salvation [X] Completed spiritual assessment [] Other: Impact on Illness or Injury [] Angry [] Fearful [] Anxious [] Often cries [] Exhaustion [] Unable to work [] Unable to attend alevism [] Unable to walk/stand [] Unable to read [] Unable to drive [] Unable to eat/drink [] Unable to sleep [] Unable to be with family [] Patient intubated [] Other: Summary: Although PT is connected to her community and friends, her daughter that lives locally is somewhat estranged. PT states that her daughter won't speak to her. However, daughter is caring for PT's dog. PT is Jain. She will be having a procedure on Thursday to obliterate a renal stone. She would welcome another scratch finisher visit. Time spent with patient: 20 mins
[2019-12-25] MEDS: cefTRIAXone 2,000 MG in sodium chloride 0.9% (plus) 50 ML 100 MG IV (13:11)
--- NOTE | 2019-12-25 14:30 | P.PN_ITS ---
Subjective Subjective: Interval history: Sheri reports she feels significantly better. No abdominal pain. No nausea. Medications: Reviewed: Yes Vitals/I&O/Wt Last Vital Signs Temp 98.1 F 12/25/19 11:48 Pulse 64 12/25/19 11:48 Resp 18 12/25/19 11:48 BP 119/62 12/25/19 11:48 Pulse Ox 98 12/25/19 11:48 12/24/19 12/25/19 12/25/19 22:59 06:59 14:59 Intake Total 340 / 440 360 / 360 Output Total 400 / 400 300 / 700 Balance -60 / 40 -300 / -260 360 / 360 Weight last 48 hrs Weight 48.988 kg Physical Exam Narrative: EXAM NARRATIVE: General exam no apparent distress Cardiovascular regular rate and rhythm without murmur, no S3 or S4 Lungs clear no wheezing or crackles Abdomen is soft positive bowel sounds. No obvious organomegaly Extremities show no cyanosis clubbing or edema, cap refill brisk. Urinary Catheter Management^: Martel: Cath Placed During This Visit: yes Reason for Continuing Indwelling Catheter: Acute Urinary Retention or Obstruc tion Urinary Catheter Date of Insertion: 12/24/19 Urinary Catheter Time of Insertion: 12:38 Data : 12/25/19 05:17 12/25/19 05:17 Micro: Microbiology 12/24/19 14:32 Blood Culture - Preliminary Blood SPECIMEN COLLECTED 12/24/19 14:25 Blood Culture - Preliminary Blood SPECIMEN COLLECTED A&P Assessment and plan (1) Hydronephrosis, left: Postoperative day #1 status post stent Appreciate urology groundwater consultant Status: Acute (2) UTI (urinary tract infection): White blood cell count still elevated, but patient afebrile. Continue Rocephin 2 g IV every 24 hours Await urine culture Status: Acute Qualifiers: Urinary tract infection type: acute pyelonephritis Qualified Code(s): N10 - Acute pyelonephritis (3) Leukocytosis: Secondary to above Urine culture Blood culture Status: Acute Additional A&P Information Coronary artery disease, stable History of GERD, continue Pepcid Hypertension, controlled on current medications including amlodipine and metoprolol Hyperlipidemia, continue statin Dementia. Stable. TSH and B12 level normal Multiple other medical problems as outlined above Discussed with patient CODE STATUS. She is allow natural . Certainly any procedures or interventions that we have time to discuss should be discussed Heparin for DVT prophylaxis following surgery Attestations Medical Necessity Statement*: Needs continued hospitalization for IV antibiotics secondary to urinary tract obstruction with infection status post stent placement Coding Level of Care Code Acute Lead Pl Sql Developer for [employer] Fwd Diagnoses Hydronephrosis, left N13.30 UTI (urinary tract infection) N10 Urinary tract infection type: acute pyelonephritis Leukocytosis D72.829
--- NOTE | 2019-12-25 15:41 | NUR.SHIFT ---
SHIFT SUMMARY PATIENT HAS DONE VERY WELL TODAY. SHE SAT UP IN THE CHAIR ALL MORNING. BETTER APPETITE TODAY. NO PAIN. 500ML OF CLEAR, DARK YELLOW URINE OUTPUT. RESTING IN BED. NO COMPLAINTS AT THIS TIME.
[2019-12-25] MEDS: trazodone 50 mg Tablet 25 MG PO (21:53)
[2019-12-26] VITALS: BP 128/66; PULSE 57; RESP 18; TEMP 36.5; O2SAT 96
[2019-12-26 04:00] VITALS: BP 136/67; PULSE 55; RESP 18; TEMP 36.4; O2SAT 96
[2019-12-26] MEDS: sodium chloride 0.9% 1,000 ML 75 ML IV ×2 (04:32→17:31)
[2019-12-26] MEDS: heparin 5,000 unit/mL INJ 1 mL 5000 UNIT SUBCUT ×2 (04:32→17:25)
[2019-12-26 05:17] LABS: Basophils % 0.4 %; Eosinophils % 0.1 %; Hematocrit 34.4 % (37.0-47.0); Hemoglobin 10.7 g/dL (11.5-15.3); Lymphocytes # 0.8 10^3/uL (0.8-4.8); Lymphocytes % 7.5 %; Mean Corpuscular HGB Conc 31.1 g/dL (30.0-36.0); Mean Corpuscular Hemoglobin 29.6 pg (28.0-34.0); Mean Platelet Volume 10.5 fL (7.4-10.4); Monocytes # 0.6 10^3/uL (0.2-0.9); Monocytes % 5.2 %; Neutrophils # 9.1 10^3/uL (1.8-7.7); Neutrophils % 86.5 %; Nucleated Red Blood Cells % 0 %; Platelet Count 215 10^3/cmm (130-400); Red Blood Count 3.62 10^6/uL (4.1-5.3); White Blood Count 10.5 10^3/uL (4.0-10.0)
[2019-12-26 05:35] LABS: Anion Gap 11.6 (5-19); Blood Urea Nitrogen 19 mg/dL (8-23); Calcium 8.5 mg/dL (8.5-10.5); Carbon Dioxide 21 mmol/L (22-29); Chloride 112 mmol/L (98-107); Glucose 102 mg/dL (65-115); Osmolality Calculated 289 mOsm/kg (285-295); Potassium 3.6 mmol/L (3.5-5.1); Sodium 141 mmol/L (136-145)
[2019-12-26 08:00] VITALS: BP 156/78; PULSE 69; RESP 18; TEMP 36.5; O2SAT 96
[2019-12-26] MEDS: aspirin 81 mg Chew Tablet 40.5 MG PO (08:16)
[2019-12-26] MEDS: donepezil 5 MG Tablet PO (08:16)
[2019-12-26] MEDS: famotidine 20 mg Tablet PO (08:16)
[2019-12-26] MEDS: atorvastatin 40 mg Tablet 80 MG DOBHOFF (08:17)
[2019-12-26] MEDS: amlodipine 5 mg Tablet PO (08:17)
[2019-12-26] MEDS: metoprolol succinate ER (24 HR) 50 mg Tablet PO (08:17)
--- NOTE | 2019-12-26 10:07 | PC.CHAP ---
Pastoral Care Encounter/Spiritual Assessment Type of Contact [] Declined general studies program chair visit [] Patient/Family/Request visit [] Outpatient visit [] Follow-up visit [] Physician referral [] Code/Alert [x] Routine visit [] Staff referral [] Actively dying [] Patient sleeping [] Family support [] [] Out of room [] Palliative care [] [] Receiving care in room [] Pre-surgical visit [] Trauma [] Long length of stay [] ICU visit [] Other: Relational/Emotional Strength [] Patient feels connected with others/family/visitors/staff [] Distress [] Loneliness/isolation [] Abandonment Spirituality of Patient [] Person of Drea [] Attends Buddhism of their Drea [] Believes in Prayer [] Reads Bible or Anglican materials [] There are Spiritual issues to be addressed Swimming Teacher Interventions [x] Prayer [] Active listening [] Non-anxious presence [] Spiritual/emotional support [] Crisis/trauma care [] Spiritual counseling [] Bereavement support [] Provided bereavement packet [] Provided Bible/devotional materials [] Provided toy/stuffed animal, coloring book to patient or family member [] Provided Communion [] Anointing/[place] [] Salvation [x] Completed spiritual assessment [] Other: Impact on Illness or Injury [] Angry [] Fearful [] Anxious [] Often cries [] Exhaustion [] Unable to work [] Unable to attend jain [] Unable to walk/stand [] Unable to read [] Unable to drive [] Unable to eat/drink [] Unable to sleep [] Unable to be with family [] Patient intubated [] Other: Summary Patient dealing with 5 daughters, but setting up and resting well. Time spent with patient 20 min
[2019-12-26 11:35] VITALS: BP 131/66; PULSE 64; RESP 18; TEMP 36.8; O2SAT 97
[2019-12-26] MEDS: cefTRIAXone 2,000 MG in sodium chloride 0.9% (plus) 50 ML 100 MG IV (14:03)
--- NOTE | 2019-12-26 14:55 | PC.NURSE ---
Martel dc'd, 9mL saline removed from balloon, pt tolerate well.
[2019-12-26 15:46] VITALS: BP 119/63; PULSE 68; RESP 18; TEMP 36.6; O2SAT 96
[2019-12-26 20:00] VITALS: BP 151/69; PULSE 60; RESP 18; TEMP 36.8; O2SAT 96
--- NOTE | 2019-12-26 20:33 | P.PN_ITS ---
Subjective Subjective: Interval history: She denies pain but was complaining of some dysuria from Martel. She states that overall she is doing better, and would like to actually return home. She declines to pursue placement to a group home facility despite discussion that she has been having signs of deconditioning, generalized weakness, needing assistance with walking to the restroom with a walker. She states her daughter will be staying with her. Vitals/I&O/Wt Last Vital Signs Temp 97.8 F 12/26/19 15:46 Pulse 68 12/26/19 15:46 Resp 18 12/26/19 15:46 BP 119/63 12/26/19 15:46 Pulse Ox 96 12/26/19 15:46 12/26/19 12/26/19 12/26/19 06:59 14:59 22:59 Intake Total 967.5 / 2536.25 180 / 180 1160.00 / 1340.00 Output Total 750 / 1250 Balance 217.5 / 1286.25 180 / 180 1160.00 / 1340.00 Physical Exam Const: COMMON NORMALS: no acute distress and patient oriented x3 OTHER: Generally deconditioned/weak HENMT: COMMON NORMALS: oropharynx normal Neck/C-Spine: COMMON NORMALS: no JVD Resp: COMMON NORMALS: normal respiratory effort and clear to auscultation bilaterally AUSCULTATION: clear to auscultation bilaterally Cardio: COMMON NORMALS: no JVD, regular rhythm, S1 normal heart sound present, S2 normal heart sound present and No murmurs present (Cardio) RHYTHM: regular rhythm HEART SOUNDS: S1 normal heart sound present and S2 normal heart sound present GI: COMMON NORMALS: Normal to inspection, nondistended, normoactive bowel jani nds present, Soft to palpation and non-tender PALPATION: Yes Soft to palpation Extremity: COMMON NORMALS: no joint enlargement and no pedal edema Neuro: COMMON NORMALS: patient oriented x3 and moves all extremities Skin: COMMON NORMALS: no rashes or lesions noted GENERAL SKIN EXAM: no rashes or lesions noted Urinary Catheter Management^: Martel: Cath Placed During This Visit: yes, but has since been removed by the nurse Reason for Continuing Indwelling Catheter: Other Urinary Catheter Date of Insertion: 12/24/19 Urinary Catheter Time of Insertion: 12:38 Date Urinary Catheter Removed: 12/26/19 Time Urinary Catheter Discontinued: 14:30 Data : 12/26/19 04:44 12/26/19 04:44 Micro: Microbiology 12/24/19 09:00 Urine Culture - Preliminary Urine Catheterized Gram Negative Rods Enterococcus species A&P Assessment and plan (1) UTI (urinary tract infection): Complicated urinary tract infection with pyuria noted after ureteral stent placement. With ureterolithiasis. Blood culture has been negative. She is growing enterococcus species in urine in addition to gram-negative asad. Clinically appears to respond well to Rocephin. For now will follow up on ID and sensitivity hold off on additional changes on antibiotics for the time being. Status: Acute Qualifiers: Urinary tract infection type: acute pyelonephritis Qualified Code(s): N10 - Acute pyelonephritis (2) Hydronephrosis, left: Status post stent placement. She will need to follow-up with urology regarding definitive treatment. Per discussion with urology she otherwise may discharge from the hospital. Martel catheter removed. Status: Acute (3) Leukocytosis: Resolving. As above. Status: Acute Additional A&P Information Coronary artery disease, stable History of GERD, continue Pepcid Hypertension, controlled on current medications including amlodipine and me toprolol Hyperlipidemia, continue statin Dementia. Stable. TSH and B12 level normal Physical deconditioning: She says at home she walks with a walker. Here noted to have some need for assistance with a walker while walking to the restroom. She declines to pursue placement to group home facility. Expresses that she will be returning home. States the daughter will be staying with her. Max luna apparently is coming back from [place] tomorrow. I understand they are agreeable to home health services. Attestations Medical Necessity Statement*: Continue admission for assessment of management of complicated UTI, status post relief of hydronephrosis, stent placement with ureterolithiasis. Disposition planning. Coding Level of Care Code Acute Plywood Stock Grader for [facility] Segura Diagnoses UTI (urinary tract infection) N10 Urinary tract infection type: acute pyelonephritis Hydronephrosis, left N13.30 Leukocytosis D72.829
[2019-12-27] VITALS: BP 129/61; PULSE 64; RESP 18; TEMP 36.5; O2SAT 96
[2019-12-27 02:10] LABS: Basophils % 0.3 %; Eosinophils # 0.1 10^3/uL (0.0-0.8); Eosinophils % 1.1 %; Hematocrit 35.3 % (37.0-47.0); Hemoglobin 10.8 g/dL (11.5-15.3); Lymphocytes % 15.5 %; Mean Corpuscular HGB Conc 30.6 g/dL (30.0-36.0); Mean Corpuscular Hemoglobin 29.4 pg (28.0-34.0); Mean Corpuscular Volume 96.2 fL (81-99); Mean Platelet Volume 10.1 fL (7.4-10.4); Monocytes # 0.5 10^3/uL (0.2-0.9); Monocytes % 8.1 %; Neutrophils # 4.7 10^3/uL (1.8-7.7); Neutrophils % 74.8 %; Nucleated Red Blood Cells % 0 %; Platelet Count 218 10^3/cmm (130-400); Red Blood Count 3.67 10^6/uL (4.1-5.3); Red Cell Distribution Width 14.1 % (12.1-15.1); White Blood Count 6.3 10^3/uL (4.0-10.0)
[2019-12-27 02:25] LABS: Anion Gap 12.3 (5-19); Blood Urea Nitrogen 17 mg/dL (8-23); Carbon Dioxide 21 mmol/L (22-29); Chloride 111 mmol/L (98-107); Glucose 98 mg/dL (65-115); Osmolality Calculated 286 mOsm/kg (285-295); Potassium 4.3 mmol/L (3.5-5.1); Sodium 140 mmol/L (136-145)
[2019-12-27 04:00] VITALS: BP 148/67; PULSE 53; RESP 18; TEMP 36.7; O2SAT 97
[2019-12-27] MEDS: heparin 5,000 unit/mL INJ 1 mL 5000 UNIT SUBCUT ×2 (04:37→16:00)
--- NOTE | 2019-12-27 06:08 | PC.NURSE ---
SHIFT SUMMARY PATIENT UP TO VOID SEVERAL TIMES THROUGHOUT THE NIGHT. URINE YELLOW AND CLEAR. NO COMPLAINTS OF PAIN WITH URINATION.
--- NOTE | 2019-12-27 07:24 | XR_ITS ---
WS: [id number] XR KUB [id number] REASON FOR EXAM: Follow-up left proximal ureteral stone status post emergency stenting for obstructiv e pyelonephritis FINDINGS: Multiple stones are seen in the left kidney a stent is seen extends to the stones in the ki dney down to the bladder good position. There is degenerate changes seen. XR/XR KUB [id number] IMPRESSION: Renal lithiasis on the left Shunt tube in good position.
--- NOTE | 2019-12-27 07:25 | P.PN_ITS ---
Subjective Subjective: Interval history: Continues to improve. Afebrile. Vital signs stable. Denies recurrent flank pain. Does have some dysuria following catheter removal but is voiding well. No change in bowel habits. Otherwise back to baseline. Denies chest pain, shortness of breath, mental status changes. Bruises easily. Final culture still pending. Reviewed plans going forward. We will tentatively plan for ESWL next Thursday. She will need to be off of her aspirin. I will plan on seeing her back in my office later this week for KUB and hopefully have her daughter there as well so we can converse regarding these plans. This can certainly be postponed if there is any other concerns or questions from an infection perspective on reevaluation. I explained all the above to the patient in detail and she is expressed good understanding. Medications: Reviewed: Yes Medication Review Details: Need to hold aspirin Vitals/I&O/Wt Last Vital Signs Temp 98.1 F 12/27/19 04:00 Pulse 53 L 12/27/19 04:00 Resp 18 12/27/19 04:00 BP 148/67 12/27/19 04:00 Pulse Ox 97 12/27/19 04:00 12/26/19 12/27/19 12/27/19 22:59 06:59 14:59 Intake Total 1210.00 / 1390.00 431.25 / 1821.25 Output Total 300 / 300 700 / 1000 Balance 910.00 / 1090.00 -268.75 / 821.25 Physical Exam Const: COMMON NORMALS: no acute distress, alert and well nourished GENERAL APPEARANCE: well kempt and well developed ORIENTATION/CONSCIOUSNESS: not confused HENMT: COMMON NORMALS: normocephalic and atraumatic HEAD & SCALP: normocephalic and atraumatic Eye: COMMON NORMALS: conjunctivae normal and no scleral icterus CONJUNCTIVA: Yes conjunctivae normal Neck/C-Spine: COMMON NORMALS: full ROM Resp: COMMON NORMALS: normal respiratory effort EFFORT & INSPECTION: No labored and No Actively coughing Extremity: COMMON NORMALS: no clubbing, cyanosis or edema Neuro: SENSORIUM/ORIENTATION: Yes alert Psych: COMMON NORMALS: mental status grossly normal APPEARANCE: Yes grossly normal and Yes well kempt ATTITUDE: Yes calm and Yes engaged Urinary Catheter Management^: Martel: Cath Placed During This Visit: yes, but has since been removed by the nurse Reason for Continuing Indwelling Catheter: Other Urinary Catheter Date of Insertion: 12/24/19 Urinary Catheter Time of Insertion: 12:38 Date Urinary Catheter Removed: 12/26/19 Time Urinary Catheter Discontinued: 14:30 Data : 12/27/19 01:50 12/27/19 01:50 Micro: Microbiology 12/24/19 09:00 Urine Culture - Preliminary Urine Catheterized Gram Negative Rods Enterococcus species A&P Assessment and plan (1) Left ureteral calculus: Large left proximal ureteral stone complicated with UTI and diagnosis. Emergency stenting for obstructive pyelonephritis and has recovered well with antibiotic therapy. Tentative plan for treatment of the stone includes ESWL on 01/02/2020. This will be contingent on continued improvement from an infection perspective and after review with family. HOLD ASPIRIN. Status: Acute (2) UTI (urinary tract infection): Final cultures pending. Clinically she is doing very well. We will need to be discharged on antibiotics based on culture results and continued until after definitive treatment of the stone and stent removal. Status: Acute Qualifiers: Urinary tract infection type: acute pyelonephritis Qualified Code(s): N10 - Acute pyelonephritis Attestations Medical Necessity Statement*: See attending Coding Level of Care Code Acute Business Office Coordinator for [facility] Imelda Diagnoses Left ureteral calculus N20.1 UTI (urinary tract infection) N10 Urinary tract infection type: acute pyelonephritis
[2019-12-27 07:47] VITALS: BP 157/79; PULSE 57; RESP 18; TEMP 36.6; O2SAT 99
[2019-12-27] MEDS: metoprolol succinate ER (24 HR) 50 mg Tablet PO (09:06)
[2019-12-27] MEDS: amlodipine 5 mg Tablet PO (09:06)
[2019-12-27] MEDS: donepezil 5 MG Tablet PO (09:06)
[2019-12-27] MEDS: atorvastatin 40 mg Tablet 80 MG DOBHOFF (09:06)
[2019-12-27 11:10] VITALS: BP 124/62; PULSE 58; RESP 18; TEMP 36.7; O2SAT 95
--- NOTE | 2019-12-27 11:10 | PC.SOCIAL ---
IMM Update Pg 2 of IMM given and explained to patient who verbalized understanding. Copy provided to patient.
[2019-12-27] MEDS: cefTRIAXone 2,000 MG in sodium chloride 0.9% (plus) 50 ML 100 MG IV (13:27)
[2019-12-27 16:00] VITALS: BP 170/71; PULSE 111; RESP 16; TEMP 36.6; O2SAT 94
--- NOTE | 2019-12-27 19:33 | PC.NURSE ---
Addendum entered by Hannah Shore RN 12/27/19 19:35: 12/26/19 at 1309 Original Note: Please note alvarado catheter management was still being documented on. Alvarado was removed 12/26/19 at 1430 per day shift.
--- NOTE | 2019-12-27 19:54 | PM.PN ---
Subjective Subjective: Interval history: She is doing well, denies any complaints. No abdominal pain. No nausea or vomiting. Vitals/I&O/Wt Last Vital Signs Temp 97.8 F 12/27/19 16:00 Pulse 111 H 12/27/19 16:00 Resp 16 12/27/19 16:00 BP 170/71 12/27/19 16:00 Pulse Ox 94 12/27/19 16:00 12/27/19 12/27/19 12/27/19 06:59 14:59 22:59 Intake Total 431.25 / 1821.25 480 / 480 650 / 1130 Output Total 700 / 1000 1700 / 1700 Balance -268.75 / 821.25 480 / 480 -1050 / -570 Physical Exam Const: COMMON NORMALS: no acute distress and patient oriented x3 OTHER: Generally deconditioned/weak HENMT: COMMON NORMALS: oropharynx normal Neck/C-Spine: COMMON NORMALS: no JVD Resp: COMMON NORMALS: normal respiratory effort and clear to auscultation bilaterally AUSCULTATION: clear to auscultation bilaterally Cardio: COMMON NORMALS: no JVD, regular rhythm, S1 normal heart sound present, S2 normal heart sound present and No murmurs present (Cardio) RHYTHM: regular rhythm HEART SOUNDS: S1 normal heart sound present and S2 normal heart sound present GI: COMMON NORMALS: Normal to inspection, nondistended, normoactive bowel sounds present, Soft to palpation and non-tender PALPATION: Yes Soft to palpation Extremity: COMMON NORMALS: no joint enlargement and no pedal edema Neuro: COMMON NORMALS: patient oriented x3 and moves all extremities Skin: COMMON NORMALS: no rashes or lesions noted GENERAL SKIN EXAM: no rashes or lesions noted Urinary Catheter Management^: Martel: Cath Placed During This Visit: yes, but has since been removed by the nurse Reason for Continuing Indwelling Catheter: Other Urinary Catheter Date of Insertion: 12/24/19 Urinary Catheter Time of Insertion: 12:38 Date Urinary Catheter Removed: 12/26/19 Time Urinary Catheter Discontinued: 13:09 Data : 12/27/19 01:50 12/27/19 01:50 Micro: Microbiology 12/24/19 09:00 Urine Culture - Final Urine Catheterized Escherichia coli Enterococcus faecalis A&P Assessment and plan (1) UTI (urinary tract infection): Earlier this afternoon identification on gram-negative asad came back as E. coli, resistant to tetracycline, then finally late this evening identification on enterococcus species is back as enterococcus faecalis. On review of the sensitivities she should be able to discharge tomorrow morning on Levaquin to complete course of therapy that should cover both pathogens. Switch to oral antibiotic starting tonight. Status: Acute Qualifiers: Urinary tract infection type: acute pyelonephritis Qualified Code(s): N10 - Acute pyelonephritis (2) Hydronephrosis, left: Status post stent placement. She will need to follow-up with urology regarding definitive treatment. Per discussion with urology she otherwise may discharge from the hospital. Martel catheter removed. Status: Acute (3) Leukocytosis: Resolved. As above. Status: Acute Additional A&P Information Coronary artery disease, stable History of GERD, continue Pepcid Hypertension, controlled on current medications including amlodipine and metoprolol Hyperlipidemia, continue statin Dementia. Stable. TSH and B12 level normal Physical deconditioning: She is generally weak, even with walker needing some supervision/assistance, and so placement to care home facility was offered to her, however, she declined. Prescription with her daughter she will be staying with her for about 2 weeks. They preferred that she return home, and are okay with being set up with home health. Attestations Medical Necessity Statement*: Continue admission for discharge arrangements for complicated urinary tract infection, with planned discharge in the morning. Coding Level of Care Code Acute Patient Accounts Clerk for Caroline Segura Diagnoses UTI (urinary tract infection) N10 Urinary tract infection type: acute pyelonephritis Hydronephrosis, left N13.30 Leukocytosis D72.829
[2019-12-27 20:00] VITALS: BP 122/63; PULSE 57; RESP 18; TEMP 36.8; O2SAT 95
[2019-12-27] MEDS: levoFLOXacin 750 mg Tablet PO (22:01)
[2019-12-28] VITALS: BP 128/61; PULSE 61; RESP 18; TEMP 36.6; O2SAT 95
[2019-12-28] MEDS: diphenhydrAMINE 50 mg/mL SDV 1mL 12.5 MG IVP (02:30)
--- NOTE | 2019-12-28 02:35 | PC.NURSE ---
Patient requested something for sleep; per policy sleeping aides are not ordered after 0200; Dr. Pedersen ordered 12.5 mg IVP of Benadryl. Patient called her daughter Bria complaining that we were not giving her anything to help her sleep, however she has not requested anything until this time. When doing rounding patient is resting with eyes closed without distress or any restlessness noted unless she has requested to use the restroom, at which she has also not requested sleep aide. She is alert and oriented x3. She states she is ready to go home.
[2019-12-28] MEDS: heparin 5,000 unit/mL INJ 1 mL 5000 UNIT SUBCUT (03:54)
[2019-12-28 03:55] VITALS: BP 138/73; PULSE 65; RESP 16; TEMP 36.5; O2SAT 97
[2019-12-28 07:33] VITALS: BP 137/78; PULSE 69; RESP 16; O2SAT 96
[2019-12-28] MEDS: amlodipine 5 mg Tablet PO (07:36)
[2019-12-28] MEDS: aspirin 81 mg Chew Tablet 40.5 MG PO (07:36)
[2019-12-28] MEDS: atorvastatin 40 mg Tablet 80 MG DOBHOFF (07:38)
[2019-12-28] MEDS: metoprolol succinate ER (24 HR) 50 mg Tablet PO (07:39)
[2019-12-28] MEDS: donepezil 5 MG Tablet PO (07:39)
[2019-12-28 11:09] VITALS: BP 137/78; PULSE 69; RESP 16; O2SAT 96
[2019-12-28 11:23] VITALS: BP 159/76; PULSE 71; RESP 18; TEMP 37.1; O2SAT 99
[2019-12-28 11:47] VITALS: BP 159/76; PULSE 71; RESP 18; TEMP 37.1; O2SAT 99
--- NOTE | 2019-12-28 13:03 | PM.DCS ---
Discharge Providers Date of Admission: 12/24/19 12:56 Date of Discharge: December 28, 2019 Attending Provider at Admission: Michael Syed MD Attending Provider at Discharge: Reddy Chance Primary Care Provider: Rafael Fatima MD Diagnoses at Discharge Discharge Diagnosis (1) UTI (urinary tract infection): Status: Acute Qualifiers: Urinary tract infection type: acute pyelonephritis Qualified Code(s): N10 - Acute pyelonephritis (2) Hydronephrosis, left: Status: Acute (3) Leukocytosis: Status: Acute Reason for Visit Reason for Visit: ABD PAIN Hospital Course Hospital Course: Very pleasant 84-year-old lady with history of CAD, chronic kidney disease, dementia, HTN, HLD, GERD was admitted for assessment management after presenting with abdominal pain, with finding of large left UPJ stone, hydronephrosis, was treated for complicated urinary tract infection with IV antibiotics with Rocephin, and underwent cystoscopy and left ureteral stent placement by urology. Urine culture eventually growing 2 organisms, E. coli and Enterococcus faecalis, for which she will complete antibiotic course with Levaquin. She will need to follow-up with urology in office for reassessment and discussion of definitive treatment of large ureteral stone. Due to overall deconditioning, difficulty with ambulation even with walker, placement to SNF was offered, however, patient declined. Her daughter is coming down here and they will be staying together over the next 2 weeks. They were agreeable to home health. Physical Exam Const: COMMON NORMALS: no acute distress and patient oriented x3 OTHER: Awake, alert, in good spirits. Very happy to return home. Denies any complaints. HENMT: COMMON NORMALS: oropharynx normal Neck/C-Spine: COMMON NORMALS: no JVD Resp: COMMON NORMALS: normal respiratory effort and clear to auscultation bilaterally AUSCULTATION: clear to auscultation bilaterally Cardio: COMMON NORMALS: no JVD, regular rhythm, S1 normal heart sound present, S2 normal heart sound present and No murmurs present (Cardio) RHYTHM: regular rhythm HEART SOUNDS: S1 normal heart sound present and S2 normal heart sound present GI: COMMON NORMALS: Normal to inspection, nondistended, normoactive bowel sounds present, Soft to palpation and non-tender PALPATION: Yes Soft to palpation Extremity: COMMON NORMALS: no joint enlargement and no pedal edema Neuro: COMMON NORMALS: patient oriented x3 and moves all extremities Skin: COMMON NORMALS: no rashes or lesions noted GENERAL SKIN EXAM: no rashes or lesions noted Urinary Catheter Management^: Martel: Cath Placed During This Visit: yes, but has since been removed by the nurse Reason for Continuing Indwelling Catheter: Other Urinary Catheter Date of Insertion: 12/24/19 Urinary Catheter Time of Insertion: 12:38 Date Urinary Catheter Removed: 12/26/19 Time Urinary Catheter Discontinued: 13:09 Discharge Data Data Completed and Pending: Completed Studies During Hospitalization Category Date Time Status CT abdomen pelvis w con* 26380 Urge nt Cat Scan 12/24/19 08:[address] head wo con* 7 0450 Stat Cat Scan 12/24/19 08:56 Completed XR KUB [id number] Rout ine Exams 12/27/19 07:24 Completed Pending at discharge Category Date Time Status Blood Culture Sta t Lab 12/24/19 14:32 Results Vitals: Last Vital Signs Temp 98.7 F 12/28/19 11:47 Pulse 71 12/28/19 11:47 Resp 18 12/28/19 11:47 BP 159/76 12/28/19 11:47 Pulse Ox 99 12/28/19 11:47 Discharge Plan Discharge Patient Disposition: Home Health Service Condition: Stable Prescriptions: New levofloxacin 750 mg Tablet 750 mg PO Q24H Qty: 10 RF: 0 Continued donepezil 5 mg tablet 5 mg PO DAILY RF: 0 metoprolol succinate 50 mg tablet extended release 24 hr 50 mg PO DAILY RF: 0 amlodipine 5 mg tablet 5 mg PO DAILY RF: 0 famotidine 20 mg tablet 20 mg PO DAILY RF: 0 aspirin 81 mg Tablet,Chewable 40.5 mg PO DAILY RF: 0 rosuvastatin 40 mg tablet 40 mg PO DAILY RF: 0 Discharge Orders: Discharge Order (Routine); Ordered 12/28/19 Ordered By: Reddy Chance [place] [facility] [place]) [Outside] Nolan Aragon MD [Physician] - 12/30/19 8:00 am (With KUB, possible preop evaluation for 12/30/2019 ESWL FOR EXRAY THEN TO DR CHAPA OFFICE) Rafael Fatima MD [Primary Care Provider] - 4-7 days (Complicated UTI, ureterolithiasis) Discharge Diet: Cardiac Discharge Activity: Resume usual activity and As per PT/OT instructions Patient Instructions: Levofloxacin (By mouth), Urinary Tract Infection in Women (DC), Renal Colic (GEN), Ureteral Stent Placement (DC) Activity Restrictions/Additional Instructions: UROLOGY instructions: 1. The stent was emergently placed to facilitate treatment of the infection. 2. The stone has not been treated. We will tentatively schedule that procedure (shockwave therapy of the stone to break it into small pieces) for 01/02/2020 pending continued improvement regarding the infection. 3. I will see you in my office late this week with a plain x-ray to evaluate the stone and hold a conversation regarding next step for treatment of the stone. It would be good to have your daughter Jessica there at the same time. Fall precautions. Discharge Date/Time: 12/28/19 12:00 Discharge Attestations Time Spent in Discharge Care*: greater than 30 min Quality Metrics Clinical Quality Measures During this hospital stay, did patient experience: None Coding Level of Care Code Acute Doorkeeper for Иринаg Fwd Diagnoses UTI (urinary tract infection) N10 Urinary tract infection type: acute pyelonephritis Hydronephrosis, left N13.30 Leukocytosis D72.829
== END 2019-12-28 12:00 | disposition home health service (06) | DRG 661 ==
LOC: ER 10:24 → OR 11:19 → MEDSURG 14:46
PROVIDERS: Emergency Medicine; Urology; Admitting Provider Internal Medicine; Family Provider Family Medicine; PCP Family Medicine; Visit Provider Internal Medicine
PROC: 0TJB8ZZ Inspection of Bladder, Via Natural or Artificial Opening Endoscopic (ICD-10-PCS; CPT 52000; principal; 2019-12-24 12:15)
PROC: 0T778DZ Dilation of Left Ureter with Intraluminal Device, Via Natural or Artificial Opening Endoscopic (ICD-10-PCS; CPT 50605; 2019-12-24 12:15)
DX: N13.2 Hydronephrosis with renal and ureteral calculous obstruction (principal); I25.10 Atherosclerotic heart disease of native coronary artery without angina pectoris; Z98.61 Coronary angioplasty status; N18.2 Chronic kidney disease, stage 2 (mild); I12.9 Hypertensive chronic kidney disease with stage 1 through stage 4 chronic kidney disease, or unspecified chronic kidney disease; F03.90 Unspecified dementia, unspecified severity, without behavioral disturbance, psychotic disturbance, mood disturbance, and anxiety; K21.9 Gastro-esophageal reflux disease without esophagitis; E78.5 Hyperlipidemia, unspecified; Z87.891 Personal history of nicotine dependence; N39.0 Urinary tract infection, site not specified; Z66 Do not resuscitate; R30.0 Dysuria; B95.2 Enterococcus as the cause of diseases classified elsewhere; N10 Acute pyelonephritis
CPT/HCPCS: 12345; 36415; 70450; 74018; 74177; 76000; 80048; 80053; 81001; 82607; 82746; 83605; 83690; 84443; 85025; 87040; 87077; 87086; 87186; 93005; 96372; 96375; 99284; C2625; J0330; J0696; J1100; J1200; J1644; J2001; J2405; J2543; J3490; J7030; Q9967

== ENCOUNTER 2019-12-30 08:14 | Outpatient (CLI) | payer MEDICARE, SELFPAY ==
--- NOTE | 2019-12-30 08:00 | XR_ITS ---
WS: [id number] XR KUB [id number] REASON FOR EXAM: URETERAL STONE FINDINGS: 2 large renal calculus are seen in the left kidney a stent is seen extends from the kidney to the bladder good position. No stones in the region of the stent. Nonspecific gas and fecal stasis. XR/XR KUB 30459 IMPRESSION: Renal lithiasis Stent in good position.
== END 2019-12-30 08:15 | disposition home or self-care (01) ==
LOC: RAD 08:15
PROVIDERS: PCP Family Medicine; Visit Provider Urology
DX: N20.1 Calculus of ureter (principal); N10 Acute pyelonephritis; N20.0 Calculus of kidney
CPT/HCPCS: 74018; 81001

== ENCOUNTER 2020-01-09 10:28 | Day surgery (SDC) | payer MEDICARE, SELFPAY ==
--- NOTE | 2020-01-06 15:17 | ECG_ITS ---
Measurements Intervals [place] Rate: 69 P: 63 MS: 164 QRS: 12 QRSD: 83 T: 48 QT: 399 QTc: 429 SINUS RHYTHM SEPTAL MYOCARDIAL INFARCTION [40+ ms Q WAVE IN V1/V2], OF INDETERMINATE AGE Compared to ECG 12/24/2019 11:51:35 Myocardial infarct finding now present Electronically Signed On 01-07-2020 15:12:18 CDT by Caity Mccarthy M.D. [id number]
[2020-01-06 15:19] VITALS: BMI 20.4
[2020-01-06 16:36] LABS: Basophils % 0.7 %; Eosinophils # 0.2 10^3/uL (0.0-0.8); Eosinophils % 2.6 %; Hematocrit 39.3 % (37.0-47.0); Lymphocytes # 1.1 10^3/uL (0.8-4.8); Lymphocytes % 19.8 %; Mean Corpuscular HGB Conc 30.5 g/dL (30.0-36.0); Mean Corpuscular Hemoglobin 28.8 pg (28.0-34.0); Mean Corpuscular Volume 94.5 fL (81-99); Mean Platelet Volume 10.3 fL (7.4-10.4); Monocytes # 0.4 10^3/uL (0.2-0.9); Monocytes % 7.3 %; Neutrophils % 69.4 %; Nucleated Red Blood Cells % 0 %; Platelet Count 284 10^3/cmm (130-400); Red Blood Count 4.16 10^6/uL (4.1-5.3); Red Cell Distribution Width 14.5 % (12.1-15.1); White Blood Count 5.7 10^3/uL (4.0-10.0)
[2020-01-09] VITALS (7 sets, daily range): BP systolic 155–182; BP diastolic 76–90; PULSE 57–90; RESP 14–20; TEMP 36.1–36.6; O2SAT 96–100
--- NOTE | 2020-01-09 09:55 | XR_ITS ---
WS: [id number] XR KUB [id number] REASON FOR EXAM: Preop ESWL left UPJ stones FINDINGS: A stent is now seen in the left kidney the largest stones in the kidney or overriding the s tent. The remaining abdomen showed nonspecific findings. XR/XR KUB [id number] IMPRESSION: Stent well positioned over the stones at the UPJ
[2020-01-09] MEDS: sodium chloride 0.9% 1,000 ML 30 ML IV (11:05)
--- NOTE | 2020-01-09 11:07 | P.ANESASSM_ITS ---
Pre-Anesthetic Assessment Pre-Anesthetic Assessment: Height/Weight: Height 1.56 m Weight 49.895 kg Temp Pulse Resp BP Pulse Ox 97.8 F 57 L 18 168/88 99 01/09/20 10:57 01/09/20 10:57 01/09/20 10:57 01/09/20 10:57 01/09/20 10:57 Preop Diagnosis: Left UPJ stone status post stenting for obstructive pyelonephritis Proposed Procedure: Operation Date: 01/09/20 12:00 Proposed Procedures p ESWL left ureteropelvic junction stones 55450 N20.1(Not Applicable) - Nolan Aragon MD Last intake: Intake Last Liquid Date 01/08/20 Last Liquid Time 20:00 Last Solid Date 01/08/20 Last Solid Time 12:00 Social: Social History: Tobacco (remote) and No alcohol Exam: Pre-Anes Outpt Exam: alert, oriented x 3, clear to auscultation bilaterally and regular rate & rhythm Airway: Submandibular: WNL Cervical ROM: WNL MP: 2 Dentition: Pa rtials (upper) and Other (poor dentation) History/ROS: No significant history except as noted Pulmonary: Pulmonary: FIGUEROA CV/HEM: CV/HEM: CAD and HTN : : Chronic renal failure Hepatic: Hepatic: None reported Metabolic: Metabolic: Hyperlipidemia Musc/skel: Musc/skel: OA/DJD Neuropsych: Neuropsych: None reported Anesthetic Plan: ASA status: 3 Anesthesia: Anesthesia Evaluation and General Risk of > 500 ml blood loss (7ml/kg in children): No Meds/Allergies Current Medications: Current Medications Generic Name Dose Route Start Last Admin Trade Name Freq PRN Reason Stop Dose Admin Sodium Chloride 1,000 mls @ 30 ml s/hr 01/09/20 10:00 01/09/20 11:05 Sodium Chloride 0.9% IV 01/10/20 09:59 30 mls/hr .Q24H EHSAN Administration PFSH Anesthesia PFSH: Medical History CAD (coronary artery disease) Chronic kidney disease, stage II (mild) Dementia GERD (gastroesophageal reflux disease) Hyperlipidemia Hypertension Surgical History History of coronary angioplasty History of hysterectomy History of knee surgery History of tubal ligation Family History Other CAD (coronary artery disease) Social History Smoking and tobacco status: former smoker Alcohol intake: never Adopted: No Caregiver/support person: No Lives independently: Yes Marital status: / Current occupational status: retired History of recent travel: No Current gender identity: Female Data Anesthesia CBC & Chem 7: 01/06/20 15:30 Cardiac Studies: No Data to Display
[2020-01-09] MEDS: levofloxacin-dextrose 5 % 500 MG/100 ML PREMIX 100 MG IV (12:11)
--- NOTE | 2020-01-09 12:12 | P.HPUD_ITS ---
Surgery/Procedure H&P Update DATE OF PROCEDURE: January 09, 2020 DATE H&P PERFORMED: 12/30/19 H&P UPDATE INFORMATION: I have reviewed H&P completed within last 30 days, I have examined patient prior to procedure, No changes to prior documentation and H&P is in [facility] EMR on date indicated PREOP DIAGNOSIS: Left UPJ stone status post stenting for obstructive pyelonephritis PLANNED PROCEDURE: Operation Date: 01/09/20 12:00 Proposed Procedures p ESWL left ureteropelvic junction stones 99949 N20.1(Not Applicable) - Nolan Aragon MD
--- NOTE | 2020-01-09 13:01 | PM.OP ---
Operative Report Date of procedure: January 09, 2020 Pre-op Diagnosis: Left UPJ stones status post stenting for obstructive pyelonephritis Post-op diagnosis: same Procedure Done: 1. Extracorporeal shockwave lithotripsy to 2 left renal calculi Pathology: none sent Surgeon: Mahesh Paper Twister Tender: Lithotripsy Agricultural Engineering Teacher: Bernardo Roger Anesthesia: General Urine output: Not measured Complications: None Findings: Both stones were treated. Total shockwave treatment was 2500 shocks. Good change on both Condition: stable Disposition: PACU Brief History: Sheri is a very pleasant 84-year-old white female who was recently hospitalized with obstructive pyelonephritis requiring emergency stenting. Treated with antibiotic therapy with resolution of her infection and she is back now for attempt at definitive therapy by ESWL for the stones. Procedure: After routine preoperative evaluation examination and obtaining of informed consent she was taken to the operating suite on 01/09/2020 where general anesthesia was administered without difficulty after appropriate timeout was performed, SCDs confirmed to be functioning, preoperative antibiotics administered, beta-naomy protocol confirmed. Positioned on the Dornier unit such that the stone closest to the UPJ was at the focal point utilizing biplanar fluoroscopy. Shockwave therapy was initiated intensity of 1 and a rate of 60. He was increased slowly to an intensity of 4 and rate was maintained at 60 throughout the procedure. After about 800 shocks the focal point was moved to the more superiorly located stone. The remainder of the shocks were split between the 2 stones and at the completion of the stone showed significant change. Tolerated the procedure well without complications and was awakened in the operating room and returned to the recovery in stable condition. PLANS: 1. Follow-up in approximately 1 week with a KUB possible cystoscopy and stent removal. 2. May require second treatment pending results above.
== END 2020-01-09 14:25 | disposition home or self-care (01) ==
PROVIDERS: Anesthesiology; PCP Family Medicine; Visit Provider Urology
PROC: (CPT 50590; principal; 2020-01-09 12:00)
DX: N20.0 Calculus of kidney (principal); N12 Tubulo-interstitial nephritis, not specified as acute or chronic; I25.10 Atherosclerotic heart disease of native coronary artery without angina pectoris; E78.5 Hyperlipidemia, unspecified; M19.90 Unspecified osteoarthritis, unspecified site; I12.9 Hypertensive chronic kidney disease with stage 1 through stage 4 chronic kidney disease, or unspecified chronic kidney disease; N18.3 Chronic kidney disease, stage 3 (moderate); Z87.891 Personal history of nicotine dependence
CPT/HCPCS: 50590; 12345; 74018; 85025; 93005; J1956; J2001; J2704; J3010; J3490; J7030

== ENCOUNTER 2020-01-18 15:51 | Outpatient (CLI) | payer MEDICARE, SELFPAY ==
--- NOTE | 2020-01-18 14:30 | FLR_ITS ---
PROCEDURE INFORMATION: Exam: XR Abdomen, 1 View Exam date and time: 01/18/2020 4:29 PM Age: 84 years old Clinical indication: Condition or disease; Kidney or ureter condition; Calculus (stone) in kidney; Prior surgery; Surgery date: <1 month; Surgery type: Eswl / stent; Patient HX: Check up TECHNIQUE: Imaging protocol: XR of the abdomen. Views: Frontal supine view of the abdomen. 1 View. COMPARISON: CR XR KUB [id number] 01/09/2020 10:40 AM FINDINGS: Gastrointestinal tract: The bowel gas pattern is nonspecific. 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 Comparison to prior examination similar findings is seen. XR/XR KUB [id number] IMPRESSION: Double-J ureteral stent left side in good position. Otherwise negative examination
== END 2020-01-18 15:52 | disposition home or self-care (01) ==
LOC: RAD 15:54
PROVIDERS: PCP Family Medicine; Visit Provider Urology
DX: N20.2 Calculus of kidney with calculus of ureter (principal); Z96.0 Presence of urogenital implants
CPT/HCPCS: 74018; 81001

== ENCOUNTER → 2020-01-19 12:03 | Outpatient (BNVA) | payer MEDICARE, SELFPAY | PROVIDERS: PCP Family Medicine; Visit Provider Urology | DX: N20.1 Calculus of ureter (principal) | CPT/HCPCS: 82365 ==

== ENCOUNTER → 2020-01-24 13:34 | Outpatient (BNVA) | payer MEDICARE, SELFPAY | PROVIDERS: PCP Family Medicine; Visit Provider Urology | DX: N20.1 Calculus of ureter (principal) | CPT/HCPCS: 88300 ==

== ENCOUNTER 2020-02-15 12:50 | Outpatient (CLI) | payer MEDICARE, SELFPAY ==
--- NOTE | 2020-02-15 12:45 | XRR_ITS ---
PROCEDURE INFORMATION: Exam: XR Abdomen, 1 View Exam date and time: 02/15/2020 1:07 PM Age: 84 years old Clinical indication: Condition or disease; Kidney or ureter condition; Calculus (stone) in ureter; Patient HX: Follow ureteral stone left TECHNIQUE: Imaging protocol: XR of the abdomen. Views: Frontal supine view of the abdomen. 1 View. COMPARISON: CR XR KUB [id number] 01/18/2020 4:23 PM FINDINGS: Gastrointestinal tract: Bowel gas pattern is within normal limits. A small volume of retained fecal material is seen within the ascending and proximal transverse colon. Organs: Examination does not show clearly visible radiodense stones. Prior examination showed a double-J ureteral stent on the left side which has now been removed. Bones/joints: The lumbar spine shows osteopenia and mild osteoarthritis. Remainder of the visible bones are unremarkable XR/XR KUB [id number] IMPRESSION: 1. Negative for radiodense urinary tract stones. 2. Negative for acute GI abnormality. 3. Previously placed left double-J stent has been removed
== END 2020-02-15 12:51 | disposition home or self-care (01) ==
PROVIDERS: PCP Family Medicine; Visit Provider Urology
DX: N20.1 Calculus of ureter (principal)
CPT/HCPCS: 74018; 80053; 81001; 87077; 87086; 87186

== ENCOUNTER 2020-04-30 18:16 | Emergency (ER) | payer MEDICARE, SELFPAY ==
--- NOTE | 2020-04-30 18:17 | ECG_ITS ---
[facility] Test Date: 2020-04-30 Pat Name: Sheri Montes Department: Room: Gender: Female Electronic Wirer: : 1935 Requested By: Ashutosh Holguin Order Number: [id number] Leena MD: Caity Mccarthy M.D. Measurements Intervals [place] Rate: 84 P: 40 OR: 161 QRS: -9 QRSD: 81 T: 53 QT: 372 QTc: 441 Interpretive Statements SINUS RHYTHM WITH OCCASIONAL VENTRICULAR PREMATURE COMPLEXES POSSIBLE LEFT ATRIAL ENLARGEMENT [-0.1mV P WAVE IN V1/V2] MINIMAL ST DEPRESSION [0.025+ mV ST DEPRESSION] Compared to ECG 01/06/2020 15:40:57 Ventricular premature complex(es) now present ST (T wave) deviation now present Myocardial infarct finding no longer present Electronically Signed On 05-01-2020 20:52:18 CDT by Caity Mccarthy M.D. [id number]
[2020-04-30 18:23] VITALS: BMI 22.3
--- NOTE | 2020-04-30 18:36 | W.ED.WEAKNES ---
HPI - Weakness General: Chief complaint: Weakness Stated complaint: WEAKNESS, COVID + Time Seen by Provider: 04/30/20 18:16 Source: patient and EMS Mode of arrival: EMS Limitations: no limitations History of Present Illness: HPI Narrative: 84-year-old female who is here from intermediate who recently tested positive for COVID. She states she is been having generalized weakness along with decreased oral intake. Here she is well-appearing and is not requiring any oxygen. She has had low-grade fevers. Denies any worsening or improving factors. She denies any vomiting or diarrhea. She states she is just felt weak and has not felt like eating. Associated symptoms: Reports fever(s); Denies chest pain, dysuria, easy bruising, nausea or vomiting Review of Systems Const: Reports: fever(s) Eyes: Denies: blurry vision or eye discomfort ENMT: Denies: throat pain or dental pain Card: Denies: chest pain Resp: Denies: dyspnea GI: Denies: abdominal pain, nausea, vomiting or diarrhea : Denies: dysuria Musc: Denies: neck pain or back pain Skin/Breast: Denies: rash Neuro: Reports: weakness in extremities Psych: Denies: depression Patrick/Lymph: Denies: easy bruising All/Imm: Denies: urticaria PFSH ED PFSH: Medical History CAD (coronary artery disease) Cholelithiasis Chronic kidney disease, stage II (mild) Dementia GERD (gastroesophageal reflux disease) Hyperlipidemia Hypertension Left ureteral calculus Obstructive pyelonephritis Surgical History History of coronary angioplasty History of hysterectomy History of knee surgery History of tubal ligation Family History Father , in his 60's CAD (coronary artery disease) Mother , at age 45 Cancer colon cancer Social History Smoking and tobacco status: former smoker Alcohol intake: never Adopted: No Caregiver/support person: No Lives independently: Yes Marital status: / Current occupational status: retired History of recent travel: No Current gender identity: Female Physical Exam Const: COMMON NORMALS: no acute distress, patient oriented x3 and healthy appearing HENMT: COMMON NORMALS: normocephalic and atraumatic HEAD & SCALP: normocephalic and atraumatic Eye: COMMON NORMALS: Equal, round and reactive pupils present and EOMs intact bilaterally PUPIL: Yes Equal, round and reactive pupils present Neck/C-Spine: COMMON NORMALS: full ROM and supple Chest: COMMONS NORMALS: normal inspection of the chest and normal palpation of entire chest wall Resp: COMMON NORMALS: normal respiratory effort, No retractions, No use of accessory muscles and clear to auscultation bilaterally AUSCULTATION: clear to auscultation bilaterally Cardio: COMMON NORMALS: regular rate, regular rhythm and No murmurs present (Cardio) RATE: regular rate RHYTHM: regular rhythm GI: COMMON NORMALS: Normal to inspection, nondistended, normoactive bowel sounds present, Soft to palpation, non-tender and no masses PALPATION: Yes Soft to palpation Extremity: COMMON NORMALS: normal to inspection and full ROM Neuro: COMMON NORMALS: patient oriented x3, moves all extremities and no focal motor deficits Psych: COMMON NORMALS: mental status grossly normal, Normal thought process present and cooperative THOUGHT PROCESS: Normal thought process present Skin: COMMON NORMALS: no rashes or lesions noted and no wounds GENERAL SKIN EXAM: no rashes or lesions noted Course Vital Signs: Vital signs: Vital Signs Pulse Rate 78 04/30/20 20:22 Respiratory Rate 16 04/30/20 19:24 Blood Pressure 136/51 04/30/20 20:22 Pulse Oximetry 95 04/30/20 20:22 MDM - Weakness MDM Narrative: Medical decision making narrative: Carissa presents here with generalized weakness from COVID 19. Patient here is well-appearing and afebrile. She is not requiring any oxygen and her blood work and x-ray here are normal. Patient was given IV fluids. I feel she is stable for discharge back to the intermediate and they are to push fluids and food on her. She is to return if worsening. She understands agrees to plan. Lab Data: Labs: Lab Results 04/30/20 04/30/20 04/30/20 Range/Units 18:37 18:37 18:37 WBC 3.7 L (4.0-10.0) 10^3/ uL RBC 4.39 (4.1-5.3) 10^6/u L Hgb 12.6 (11.5-15.3) g/dL Hct 39.5 (37.0-47.0) % MCV 90.0 (81-99) fL MCH 28.7 (28.0-34.0) pg MCHC 31.9 (30.0-36.0) g/dL RDW 13.3 (12.1-15.1) % Plt Count 130 (130-400) 10^3/c mm MPV 11.0 H (7.4-10.4) fL Neut % (Auto) 82.1 % Lymph % (Auto) 10.3 % [place] % (Auto) 6.8 % Eos % (Auto) 0.0 % Baso % (Auto) 0.0 % Neut # (Auto) 3.02 (1.8-7.7) 10^3/u L Lymph # (Auto) 0.4 L (0.8-4.8) 10^3/u L [place] # (Auto) 0.3 (0.2-0.9) 10^3/u L Eos # (Auto) 0.0 (0.0-0.8) 10^3/u L Baso # (Auto) 0.0 (0.0-0.1) 10^3/u L Nucleated RBC % (a uto) 0 % Nucleated RBCs # 0.0 /100WBC Fibrinogen 495 (174-498) mg/dL Sodium 136 (136-145) mmol/L Potassium 3.3 L (3.5-5.1) mmol/L Chloride 100 (98-107) mmol/L Carbon Dioxide 23 (22-29) mmol/L Anion Gap 16.3 (5-19) BUN 27 H (8-23) mg/dL Creatinine 0.9 (0.5-0.9) mg/dL GFR Calculation Not Reportable Glucose 136 H (65-115) mg/dL Calculated Osmolal ity 289 (285-295) mOsm/k g Lactic Acid (0.5-2.2) mmol/L Calcium 9.7 (8.5-10.5) mg/dL Total Bilirubin 0.7 (0.15-1.2) mg/dL AST 33 H (0-32) U/L ALT 15 (0-33) U/L Alkaline Phosphata se 89 (35-105) IU/L Total Protein 6.4 L (6.6-8.7) g/dL Albumin 3.5 (3.5-5.2) g/dL Globulin 2.9 (1.3-4.6) g/dL 04/30/20 Range/Units 18:37 WBC (4.0-10.0) 10^3/ uL RBC (4.1-5.3) 10^6/u L Hgb (11.5-15.3) g/dL Hct (37.0-47.0) % MCV (81-99) fL MCH (28.0-34.0) pg MCHC (30.0-36.0) g/dL RDW (12.1-15.1) % Plt Count (130-400) 10^3/c mm MPV (7.4-10.4) fL Neut % (Auto) % Lymph % (Auto) % [place] % (Auto) % Eos % (Auto) % Baso % (Auto) % Neut # (Auto) (1.8-7.7) 10^3/u L Lymph # (Auto) (0.8-4.8) 10^3/u L [place] # (Auto) (0.2-0.9) 10^3/u L Eos # (Auto) (0.0-0.8) 10^3/u L Baso # (Auto) (0.0-0.1) 10^3/u L Nucleated RBC % (a uto) % Nucleated RBCs # /100WBC Fibrinogen (174-498) mg/dL Sodium (136-145) mmol/L Potassium (3.5-5.1) mmol/L Chloride (98-107) mmol/L Carbon Dioxide (22-29) mmol/L Anion Gap (5-19) BUN (8-23) mg/dL Creatinine (0.5-0.9) mg/dL GFR Calculation Glucose (65-115) mg/dL Calculated Osmolal ity (285-295) mOsm/k g Lactic Acid 1.7 (0.5-2.2) mmol/L Calcium (8.5-10.5) mg/dL Total Bilirubin (0.15-1.2) mg/dL AST (0-32) U/L ALT (0-33) U/L Alkaline Phosphata se (35-105) IU/L Total Protein (6.6-8.7) g/dL Albumin (3.5-5.2) g/dL Globulin (1.3-4.6) g/dL EKG Data^: EKG 1: Attestation: I personally reviewed and interpreted this EKG as follows: EKG interpretation date: 04/30/20 EKG interpretation time: 18:31 Interpretation: nsr hr [address] or t wave abnormalities qrs 81 qtc 413 Discharge Plan Discharge Patient Disposition: Home Clinical Impression: COVID-19, Weakness Condition: Stable Prescriptions: New ondansetron 4 mg tablet,disintegrating 4 mg PO Q6H PRN (Reason: nausea and vomiting) Qty: 14 RF: 0 No Action clonidine HCl 0.1 mg Tablet 0.1 mg PO Q6H PRN (Reason: unknown) RF: 0 aspirin 81 mg Tablet,Delayed Release (Dr/Ec) 81 mg PO DAILY RF: 0 triamcinolone acetonide 0.1 % Cream See Rx Instructions .ROUTE .COMPLEX RF: 0 Nitrostat 0.4 mg Tablet, Sublingual 0.4 mg SUBLINGUAL Q5M PRN (Reason: Chest Pain) RF: 0 metoprolol succinate 50 mg tablet extended release 24 hr 50 mg PO DAILY RF: 0 amlodipine 5 mg tablet 5 mg PO DAILY RF: 0 rosuvastatin 40 mg tablet 40 mg PO DAILY RF: 0 Discharge Orders: Discharge Order (Routine); Ordered 04/30/20 Ordered By: Ashutosh Holguin Referrals: Rafael Fatima MD [Primary Care Provider] - Discharge Diet: Advance as tolerated Discharge Activity: Resume usual activity Patient Instructions: Weakness (ED) Coding Level of Care Code ED Clinical Quality Assurance Specialist for Chg Fwd Exam Comprehensive
[2020-04-30 18:47] LABS: Hematocrit 39.5 % (37.0-47.0); Hemoglobin 12.6 g/dL (11.5-15.3); Lymphocytes # 0.4 10^3/uL (0.8-4.8); Lymphocytes % 10.3 %; Mean Corpuscular HGB Conc 31.9 g/dL (30.0-36.0); Mean Corpuscular Hemoglobin 28.7 pg (28.0-34.0); Monocytes # 0.3 10^3/uL (0.2-0.9); Monocytes % 6.8 %; Neutrophils # 3.02 10^3/uL (1.8-7.7); Neutrophils % 82.1 %; Nucleated Red Blood Cells % 0 %; Platelet Count 130 10^3/cmm (130-400); Red Blood Count 4.39 10^6/uL (4.1-5.3); Red Cell Distribution Width 13.3 % (12.1-15.1); White Blood Count 3.7 10^3/uL (4.0-10.0)
[2020-04-30 19:24] VITALS: BP 162/77; PULSE 78; RESP 16; O2SAT 95
[2020-04-30 19:35] LABS: Fibrinogen 495 mg/dL (174-498)
[2020-04-30 19:44] LABS: Lactic Sepsis W/Reflex 1.7 mmol/L (0.5-2.2)
[2020-04-30 19:56] VITALS: BP 152/59; PULSE 80; O2SAT 93
[2020-04-30 19:56] LABS: Alanine Aminotransferase 15 U/L (0-33); Albumin Level 3.5 g/dL (3.5-5.2); Alkaline Phosphatase 89 IU/L (35-105); Anion Gap 16.3 (5-19); Aspartate Amino Transferase 33 U/L (0-32); Blood Urea Nitrogen 27 mg/dL (8-23); Calcium 9.7 mg/dL (8.5-10.5); Carbon Dioxide 23 mmol/L (22-29); Chloride 100 mmol/L (98-107); Globulin 2.9 g/dL (1.3-4.6); Glucose 136 mg/dL (65-115); Osmolality Calculated 289 mOsm/kg (285-295); Potassium 3.3 mmol/L (3.5-5.1); Sodium 136 mmol/L (136-145); Total Bilirubin 0.7 mg/dL (0.15-1.2); Total Protein 6.4 g/dL (6.6-8.7)
--- NOTE | 2020-04-30 20:03 | XR_ITS ---
WS: [id number] XR chest 1V portable [id number] REASON FOR EXAM: cough FINDINGS: Mild ectasia and tortuosity of the thoracic aorta with calcification in the aortic arch. The heart is at the upper limits of normal in size. Coarse interstitial changes in the lung bases and in the axillary region of the right lung field. In comparison to the previous examination of 09/04/2015, the interstitial changes in the left lung ba se are likely chronic. The right lung field abnormality may represent an interval change of unknown c hronicity. Degenerative arthropathic changes in the right acromioclavicular joint and glenohumeral joint are inc identally noted. XR/XR chest 1V portable [id number] IMPRESSION: Interval change in the right lung with infiltrative region in the axillary lung field, chronicity uncertain.
[2020-04-30 20:22] VITALS: BP 136/51; PULSE 78; O2SAT 95
[2020-04-30 22:02] VITALS: BP 141/59; PULSE 88; O2SAT 95
[2020-04-30 22:56] LABS: C Reactive Protein 44.1 mg/L (0.0-4.9); Ferritin 637 ng/mL (15-150)
== END 2020-04-30 22:04 | disposition home or self-care (01) ==
PROVIDERS: Emergency Provider Emergency Medicine; PCP Family Medicine
DX: U07.1 COVID-19 (principal); R53.1 Weakness; Z79.82 Long term (current) use of aspirin; I25.10 Atherosclerotic heart disease of native coronary artery without angina pectoris; I12.9 Hypertensive chronic kidney disease with stage 1 through stage 4 chronic kidney disease, or unspecified chronic kidney disease; N18.2 Chronic kidney disease, stage 2 (mild); F03.90 Unspecified dementia, unspecified severity, without behavioral disturbance, psychotic disturbance, mood disturbance, and anxiety; E78.5 Hyperlipidemia, unspecified; Z98.61 Coronary angioplasty status; Z87.891 Personal history of nicotine dependence
CPT/HCPCS: 12345; 71045; 80053; 82728; 83605; 85025; 85384; 86140; 93005; 99282; 99283

== ENCOUNTER 2021-08-05 21:13 | Inpatient (IN) | payer MEDICARE, SELFPAY ==
[2021-08-05 21:28] VITALS: BP 134/77; PULSE 84; RESP 16; O2SAT 97; BMI 21.7
--- NOTE | 2021-08-05 21:33 | CTR_ITS ---
PROCEDURE INFORMATION: Exam: CT Head Without Contrast Exam date and time: 08/05/2021 9:33 PM Age: 85 years old Clinical indication: Altered mental status/memory loss and weakness, extremity; Additional info: AMS TECHNIQUE: Imaging protocol: Computed tomography of the head without contrast. Radiation optimization: All CT scans at this facility use at least one of these dose optimization techniques: automated exposure control; mA and/or kV adjustment per patient size (includes targeted exams where dose is matched to clinical indication); or iterative reconstruction. COMPARISON: 1. CT head wo con* [id number] 2019-12-24 09:23 2. MR iac's wo con [id number] 2018-05-10 09:46 RADIATION DOSE METRICS: Total DLP (mGy-cm): 700.52 FINDINGS: Brain: Diffuse moderate cerebral age related volume loss. Moderate patchy low attenuation in the white matter compatible with moderate chronic small vessel ischemic disease. No midline shift, mass, fluid collection, or evidence of hemorrhage. Cerebral ventricles: Ventricular enlargement proportional to volume loss. Paranasal sinuses: Visualized sinuses are unremarkable. No fluid levels. Mastoid air cells: Visualized mastoid air cells are well aerated. Bones/joints: Unremarkable. No acute fracture. Soft tissues: Unremarkable. CT/CT head wo con* [id number] IMPRESSION: [id number] involutional changes, no acute intracranial abnormality.
[2021-08-05 23:13] LABS: Basophils % 0.3 %; Eosinophils # 0.2 10^3/uL (0.0-0.8); Eosinophils % 1.6 %; Hemoglobin 14.7 g/dL (11.5-15.3); Lymphocytes % 9.5 %; Mean Corpuscular Hemoglobin 29.6 pg (28.0-34.0); Mean Corpuscular Volume 92.6 fl (81-99); Mean Platelet Volume 9.7 fL (7.4-10.4); Monocytes # 0.9 10^3/uL (0.2-0.9); Monocytes % 9.1 %; Neutrophils # 7.94 10^3/uL (1.8-7.7); Neutrophils % 79.1 %; Nucleated Red Blood Cells % 0 %; Platelet Count 301 10^3/cmm (130-400); Red Blood Count 4.97 10^6/uL (4.1-5.3); Red Cell Distribution Width 13.7 % (12.1-15.1)
[2021-08-05 23:19] LABS: Lactic Sepsis W/Reflex 1.3 mmol/L (0.5-2.2)
[2021-08-05 23:30] LABS: Alanine Aminotransferase 44 U/L (0-33); Albumin Level 4.1 g/dL (3.5-5.2); Alkaline Phosphatase 108 IU/L (35-105); Anion Gap 20.8 (5-19); Aspartate Amino Transferase 80 U/L (0-32); Blood Urea Nitrogen 51 mg/dL (8-23); Calcium 11.1 mg/dL (8.5-10.5); Carbon Dioxide 21 mmol/L (22-29); Chloride 104 mmol/L (98-107); Glucose 103 mg/dL (65-115); Osmolality Calculated 308 mOsm/kg (285-295); Potassium 3.8 mmol/L (3.5-5.1); Sodium 142 mmol/L (136-145); Thyroid Stimulating Hormone 1.23 uIU/mL (0.27-4.20); Total Bilirubin 1.1 mg/dL (0.15-1.2); Total Protein 7.1 g/dL (6.6-8.7)
--- NOTE | 2021-08-05 23:40 | ED_ITS ---
HPI - Altered Mental Status General: Chief Complaint: ER Hold Stated Complaint: UTI/Frequent falls Time Seen by Provider: 08/05/21 23:40 Source: patient, family and old records reviewed Limitations: other (Poor memory, reported history of dementia) History of Present Illness: HPI narrative: Ms. Montes is an 85-year-old lady with history of hypertension and history of urinary tract infection who presents to the emergency department due to being found down. She was completing a course of antibiotics after UTI approximately 2 weeks ago. She had been improving however under somewhat unclear circumstances fell on 08/02. She was just found today. She cannot recall exactly what caused her to fall and therefore is unsure if there were any specific provoking factors. She is unsure of why she was unable to get up however does have aches and pains associated with being on the ground. She does have scattered contusions. Overall the intensity of symptoms is moderate. The course has been worsening as she was stuck on the ground. History is otherwise limited by patient's recollection though no other specific changes in health, exacerbating, or relieving factors are identified. MD complaint: weakness Onset (ago): day(s) Severity: moderate Consistency of symptoms: Unknown Associated symptoms: Reports no associated symptoms Review of Systems General: Reports: 10 or more systems reviewed and unremarkable except in HPI and below PFSH ED PFSH: Medical History (Updated 08/10/21 @ 00:01 by ) CAD (coronary artery disease) Cholelithiasis Chronic kidney disease, stage II (mild) COVID-19 Dementia GERD (gastroesophageal reflux disease) Hyperlipidemia Hypertension Left ureteral calculus Obstructive pyelonephritis Surgical History History of coronary angioplasty History of hysterectomy History of knee surgery History of tubal ligation Family History Father , in his 60's CAD (coronary artery disease) Mother , at age 45 Cancer colon cancer Social History Smoking and tobacco status: former smoker Alcohol intake: never Adopted: No Caregiver/support person: No Lives independently: Yes Marital status: / Current occupational status: retired History of recent travel: No Current gender identity: Female Physical Exam Const: COMMON NORMALS: alert EXAM LIMITATIONS: other limitations (Poor memory) GENERAL APPEARANCE: cooperative and well developed HENMT: COMMON NORMALS: normocephalic and atraumatic HEAD & SCALP: normocephalic and atraumatic THROAT: posterior oropharynx normal Eye: COMMON NORMALS: conjunctivae normal CONJUNCTIVA: Yes conjunctivae normal SCLERA: sclerae normal Neck/C-Spine: COMMON NORMALS: supple GENERAL: Yes trachea midline Resp: COMMON NORMALS: normal respiratory effort EFFORT & INSPECTION: Yes able to speak in complete sentences Cardio: COMMON NORMALS: regular rate and regular rhythm RATE: regular rate RHYTHM: regular rhythm GI: COMMON NORMALS: Soft to palpation PALPATION: Yes Soft to palpation and Yes Tenderness to palpation present (GI) (Lower abdomen) Extremity: GENERAL: Yes normal exam except as noted and No edema Neuro: COMMON NORMALS: moves all extremities, no focal motor deficits and no sensory deficits noted SENSORIUM/ORIENTATION: Yes alert and No Orientation impaired Psych: COMMON NORMALS: mental status grossly normal and Normal thought process present THOUGHT PROCESS: Normal thought process present Skin: NARRATIVE SKIN EXAM: Scattered contusions worse on her back and hip Course ED course: - Patient was seen and evaluated by me at bedside - Patient placed on cardiac monitors, IV access obtained - Initial evaluation notable for exam as above -Fluids given - Labs notable for no leukocytosis, likely minor hemoconcentration. Metabolic panel with evidence of elevated creatinine and transaminitis. CK is elevated. IV fluids given. - Imaging notable for no acute traumatic injury noted on head CT or C-spine. Physical exam shows multiple contusions as well as evidence of tenderness to palpation wanting additional CT imaging. No acute traumatic injuries identified on chest abdomen or pelvis. - Upon serial reexamination after treatment the patient was similar. - Based on patient history, evaluation, labs, and imaging as interpreted the most likely cause of the patient's condition is weakness of unclear etiology with fall and prolonged downtime resulting in rhabdomyolysis - The results of ED evaluation were discussed with the patient including plan for admission due to requirement for level of care not available if discharged to prevent significant worsening/deterioration. -Hospitalist service contacted and agreed admit the patient. - Patient was admitted without further deterioration or significant events. Note: Click bubbles or prepopulated topete in note writing are used for assistance with data collection and billing and are inherently more limited than narrative and other text portions of this note. Please use narrative for additional clinical history and defer to narrative/free test for any case of contradictory information. If information appears in only free text or click bubble it should be considered present or absent as reported. Please contact note automatic typewriter inspector for clarifications of clinical information or contradictory information. MDM is a brief summary, contradictory or erroneous seeming information should be clarified and full note should be reviewed. Vital Signs: Vital signs: Vital Signs Temperature 98.6 F 08/09/21 17:00 Pulse Rate 65 08/09/21 17:00 Respiratory Rate 16 08/09/21 17:00 Blood Pressure 144/73 08/09/21 17:00 Pulse Oximetry 98 08/09/21 17:00 MDM - Altered Mental Status MDM Narrative: Medical decision making narrative: 85-year-old lady with weakness and fall of unclear circumstances. She spent multiple days on the ground. ED evaluation notable for rhabdomyolysis and resulting metabolic abnormalities without evidence of other acute traumatic injury. Medical Records: Attestation: I reviewed the patient's medical records. Lab Data: Attestation: I reviewed the patient's lab results. Labs: Lab Results 08/05/21 08/05/21 08/05/21 22:55 22:55 22:55 WBC 10.0 10^3/uL 10^3 /uL (4.0-10.0) RBC 4.97 10^6/uL 10^6 /uL (4.1-5.3) Hgb 14.7 g/dL g/dL (11.5-15.3) Hct 46.0 % % (37.0-47.0) MCV 92.6 fl fl (81-99) MCH 29.6 pg pg (28.0-34.0) MCHC 32.0 g/dL g/dL (30.0-36.0) RDW 13.7 % % (12.1-15.1) Plt Count 301 10^3/cmm 10^3 /cmm (130-400) MPV 9.7 fL fL (7.4-10.4) Neut % (Auto) 79.1 % % Lymph % (Auto) 9.5 % % [place] % (Auto) 9.1 % % Eos % (Auto) 1.6 % % Baso % (Auto) 0.3 % % Neut # (Auto) 7.94 10^3/uL H 10 ^3/uL (1.8-7.7) Lymph # (Auto) 1.0 10^3/uL 10^3/ uL (0.8-4.8) [place] # (Auto) 0.9 10^3/uL 10^3/ uL (0.2-0.9) Eos # (Auto) 0.2 10^3/uL 10^3/ uL (0.0-0.8) Baso # (Auto) 0.0 10^3/uL 10^3/ uL (0.0-0.1) Nucleated RBC % (a uto) 0 % % Nucleated RBCs # 0.0 /100WBC /100W BC Sodium 142 mmol/L mmol/L (136-145) Potassium 3.8 mmol/L mmol/L (3.5-5.1) Chloride 104 mmol/L mmol/L (98-107) Carbon Dioxide 21 mmol/L L mmol/ L (22-29) Anion Gap 20.8 H (5-19) BUN 51 mg/dL H mg/dL (8-23) Creatinine 1.2 mg/dL H mg/dL (0.5-0.9) GFR Calculation Not Reportable Glucose 103 mg/dL mg/dL (65-115) POC Glucose Calculated Osmolal ity 308 mOsm/kg H mOs m/kg (285-295) Lactic Acid 1.3 mmol/L mmol/L (0.5-2.2) Calcium 11.1 mg/dL H mg/d L (8.5-10.5) Total Bilirubin 1.1 mg/dL mg/dL (0.15-1.2) AST 80 U/L H U/L (0-32) ALT 44 U/L H U/L (0-33) Alkaline Phosphata se 108 IU/L H IU/L (35-105) Creatine Kinase Troponin T Baselin e Troponin T 120 Min [place] Delta Troponin T Troponin T Hi Sens 6Hr Troponin T Hi Sens 6Hr Delta Total Protein 7.1 g/dL g/dL (6.6-8.7) Albumin 4.1 g/dL g/dL (3.5-5.2) Globulin 3.0 g/dL g/dL (1.3-4.6) TSH 1.23 uIU/mL uIU/m L (0.27-4.20) Urine Color Urine Appearance Urine pH Ur Specific Gravit y Urine Protein Urine Glucose (UA) Urine Ketones Urine Blood Urine Nitrate Urine Bilirubin Urine Urobilinogen Ur Leukocyte Jazmine ase Urine RBC Urine WBC Ur Squamous Epith Cells Amorphous Sediment Urine Bacteria Hyaline Casts Urine Mucus Coronavirus 229E ( PCR) SARS-CoV-2 (PCR) 08/05/21 08/05/21 08/05/21 22:55 22:55 23:39 WBC RBC Hgb Hct MCV MCH MCHC RDW Plt Count MPV Neut % (Auto) Lymph % (Auto) [place] % (Auto) Eos % (Auto) Baso % (Auto) Neut # (Auto) Lymph # (Auto) [place] # (Auto) Eos # (Auto) Baso # (Auto) Nucleated RBC % (a uto) Nucleated RBCs # Sodium Potassium Chloride Carbon Dioxide Anion Gap BUN Creatinine GFR Calculation Glucose POC Glucose 93 mg/dL mg/dL (70-110) Calculated Osmolal ity Lactic Acid Calcium Total Bilirubin AST ALT Alkaline Phosphata se Creatine Kinase 1274 U/L H* U/L (26-192) Troponin T Baselin e 33 ng/L H ng/L (0-10) Troponin T 120 Min [place] Troponin T Troponin T Hi Sens 6Hr Troponin T Hi Sens 6Hr Delta Total Protein Albumin Globulin TSH Urine Color Urine Appearance Urine pH Ur Specific Gravit y Urine Protein Urine Glucose (UA) Urine Ketones Urine Blood Urine Nitrate Urine Bilirubin Urine Urobilinogen Ur Leukocyte Jazmine ase Urine RBC Urine WBC Ur Squamous Epith Cells Amorphous Sediment Urine Bacteria Hyaline Casts Urine Mucus Coronavirus 229E ( PCR) SARS-CoV-2 (PCR) 08/06/21 08/06/21 08/06/21 00:55 04:50 05:02 WBC RBC Hgb Hct MCV MCH MCHC RDW Plt Count MPV Neut % (Auto) Lymph % (Auto) [place] % (Auto) Eos % (Auto) Baso % (Auto) Neut # (Auto) Lymph # (Auto) [place] # (Auto) Eos # (Auto) Baso # (Auto) Nucleated RBC % (a uto) Nucleated RBCs # Sodium Potassium Chloride Carbon Dioxide Anion Gap BUN Creatinine GFR Calculation Glucose POC Glucose Calculated Osmolal ity Lactic Acid Calcium Total Bilirubin AST ALT Alkaline Phosphata se Creatine Kinase Troponin T Baselin e Troponin T 120 Min [place] 22.89 ng/L H ng/L (0-10) Delta Troponin T -10.11 ABS# L ABS # (0-10) Troponin T Hi Sens 6Hr 30.74 ng/L H ng/L (0-10) Troponin T Hi Sens 6Hr Delta -2.26 ng/L L ng/L (0-12) Total Protein Albumin Globulin TSH Urine Color Yellow (Yellow) Urine Appearance Cloudy (CLEAR) Urine pH 5 (5-7) Ur Specific Gravit y 1.020 (1.005-1.030) Urine Protein 1+ H (Negative) Urine Glucose (UA) Norm (Normal) Urine Ketones 1+ H (Negative) Urine Blood 2+ H (Negative) Urine Nitrate Positive H (Negative) Urine Bilirubin 1+ H (Negative) Urine Urobilinogen Norm mg/dL mg/dL (Negative) Ur Leukocyte Jazmine ase Negative (Negative) Urine RBC 0-4 /hpf H /hpf (0-2) Urine WBC 15-25 /hpf H /hpf (0-5) Ur Squamous Epith Cells 25-40 /hpf H /hpf (0-5) Amorphous Sediment Not Reportable Urine Bacteria 1+ /hpf H /hpf (NONE) Hyaline Casts 5-10 /lpf H /lpf Urine Mucus 2+ /hpf /hpf Coronavirus 229E ( PCR) SARS-CoV-2 (PCR) 08/06/21 07:38 WBC RBC Hgb Hct MCV MCH MCHC RDW Plt Count MPV Neut % (Auto) Lymph % (Auto) [place] % (Auto) Eos % (Auto) Baso % (Auto) Neut # (Auto) Lymph # (Auto) [place] # (Auto) Eos # (Auto) Baso # (Auto) Nucleated RBC % (a uto) Nucleated RBCs # Sodium Potassium Chloride Carbon Dioxide Anion Gap BUN Creatinine GFR Calculation Glucose POC Glucose Calculated Osmolal ity Lactic Acid Calcium Total Bilirubin AST ALT Alkaline Phosphata se Creatine Kinase Troponin T Baselin e Troponin T 120 Min [place] Troponin T Troponin T Hi Sens 6Hr Troponin T Hi Sens 6Hr Delta Total Protein Albumin Globulin TSH Urine Color Urine Appearance Urine pH Ur Specific Gravit y Urine Protein Urine Glucose (UA) Urine Ketones Urine Blood Urine Nitrate Urine Bilirubin Urine Urobilinogen Ur Leukocyte Jazmine ase Urine RBC Urine WBC Ur Squamous Epith Cells Amorphous Sediment Urine Bacteria Hyaline Casts Urine Mucus Coronavirus 229E ( PCR) Not detected (NOT DETECT) SARS-CoV-2 (PCR) Not detected (NOT DETECT) EKG Data^: EKG 1: EKG interpretation date: 08/05/21 EKG interpretation time: 23:59 Interpretation: Twelve-lead EKG shows a regular rhythm at a rate of 81. CT interval 164, QRS duration 68, QTc 411. Normal axis. Interpretation: Sinus rhythm with nonspecific ST segment abnormalities. EKG 2: Attestation: I personally reviewed and interpreted this EKG as follows: EKG interpretation date: 08/06/21 EKG interpretation time: 02:09 Interpretation: Twelve-lead EKG shows a regular rhythm at a rate of 78. CT interval 164, QRS duration 64, QTc 415. Normal axis. Interpretation: Sinus rhythm. Nonspecific ST segment abnormalities. EKG 3: Attestation: I personally reviewed and interpreted this EKG as follows: EKG interpretation date: 08/06/21 EKG interpretation time: 04:59 Interpretation: Twelve-lead EKG shows a regular rhythm at a rate of 70. CT interval 160, QRS duration 68, QTc 397. Normal axis. Interpretation: Sinus rhythm with nonspecific ST segment abnormalities. Discharge Plan Discharge Admit Provider: Zabrina Castañeda Condition: Stable Discharge Orders: Discharge Order (Routine); Ordered 08/09/21 Ordered By: Farhana Covington Discharge Diet: Cardiac Discharge Activity: Use walker/crutches as instructed and As per PT/OT instructions Coding Level of Care Code ED Obstetrical Nurse for Chg Fwd Exam Comprehensive
[2021-08-05 23:45] LABS: Glucose Point of Care 93 mg/dL (70-110)
--- NOTE | 2021-08-05 23:48 | ECG_ITS ---
[facility] Test Date: 2021-08-05 Pat Name: Sheri Montes Department: Room: Gender: Female Raw Scales Operator: : 1935 Requested By: Ken Abbott Order Number: [id number] Leena MD: Caity Mccarthy M.D. Measurements Intervals [place] Rate: 81 P: 39 WV: 164 QRS: 15 QRSD: 68 T: 56 QT: 374 QTc: 435 Interpretive Statements SINUS RHYTHM MODERATE ST DEPRESSION [0.05+ mV ST DEPRESSION] Compared to ECG 04/30/2020 18:31:19 Ventricular premature complex(es) no longer present ST (T wave) deviation still present Electronically Signed On 08-07-2021 19:52:03 CHIEF STRATEGY OFFICER by Caity Mccarthy M.D. [id number]
--- NOTE | 2021-08-05 23:55 | CTR_ITS ---
PROCEDURE INFORMATION: Exam: CT Cervical Spine Without Contrast Exam date and time: 08/05/2021 11:55 PM Age: 85 years old Clinical indication: Pain and injury or trauma; Fall; Blunt trauma; Neck pain; Additional info: Fall, prolonged down time, pain TECHNIQUE: Imaging protocol: Computed tomography images of the cervical spine without contrast. Radiation optimization: All CT scans at this facility use at least one of these dose optimization techniques: automated exposure control; mA and/or kV adjustment per patient size (includes targeted exams where dose is matched to clinical indication); or iterative reconstruction. COMPARISON: 1. CT head wo con* [id number] 2021-08-05 21:[address] head wo con* [id number] 2019-12-24 09:23 RADIATION DOSE METRICS: Total DLP (mGy-cm): 234.45 FINDINGS: Bones/joints: Mild degenerative related alignment abnormalities. Maintained vertebral body heights without fractures. Multiple osseous fused posterior elements. Discs/Spinal canal/Neural foramina: Diffuse degenerative disc space loss with degenerative disc osteophyte complexes, facet arthropathy, and ligamentum flavum thickening causes up to mild to moderate spinal and foraminal stenosis, greatest at C5-C7. Small C5-C6 central disc extrusion. Lungs: Lung apices are normal. Soft tissues: Unremarkable. CT/CT cervical spin wo con* [id number] IMPRESSION: No acute findings.
--- NOTE | 2021-08-05 23:55 | CTR_ITS ---
PROCEDURE INFORMATION: Exam: CT Chest With Contrast; Diagnostic Exam date and time: 08/05/2021 11:55 PM Age: 85 years old Clinical indication: Injury or trauma; Fall; Generalized; Blunt trauma (contusions or hematomas); Additional info: Fall, pain, contusions, pronlonged down time TECHNIQUE: Imaging protocol: Diagnostic computed tomography of the chest with contrast. Radiation optimization: All CT scans at this facility use at least one of these dose optimization techniques: automated exposure control; mA and/or kV adjustment per patient size (includes targeted exams where dose is matched to clinical indication); or iterative reconstruction. Contrast material: VISI 320; Contrast volume: 75 ml; Contrast route: INTRAVENOUS (IV); COMPARISON: CR XR chest 1V portable [id number] 04/30/2020 8:38 PM RADIATION DOSE METRICS: Total DLP (mGy-cm): 1042.67 FINDINGS: Lungs: Emphysematous changes. Pleural spaces: Unremarkable. No pneumothorax. No pleural effusion. Heart: Coronary artery atherosclerotic calcifications. Aorta: Unremarkable. No aortic aneurysm. Lymph nodes: Unremarkable. No enlarged lymph nodes. Bones/joints: Upper thoracic spine benign-appearing vertebral body hemangioma. Soft tissues: Unremarkable. PROCEDURE INFORMATION: Exam: CT Abdomen And Pelvis With Contrast Exam date and time: 08/05/2021 11:55 PM Age: 85 years old Clinical indication: Injury or trauma; Fall; Generalized; Blunt trauma (contusions or hematomas); Additional info: Fall, pain, contusions, pronlonged down time TECHNIQUE: Imaging protocol: Computed tomography of the abdomen and pelvis with contrast. Radiation optimization: All CT scans at this facility use at least one of these dose optimization techniques: automated exposure control; mA and/or kV adjustment per patient size (includes targeted exams where dose is matched to clinical indication); or iterative reconstruction. Contrast material: VISI 320; Contrast volume: 75 ml; Contrast route: INTRAVENOUS (IV); COMPARISON: CR XR chest 1V portable [id number] 04/30/2020 8:38 PM RADIATION DOSE METRICS: Total DLP (mGy-cm): 1042.67 FINDINGS: Liver: Normal. No mass. Gallbladder and bile ducts: Cholelithiasis. Pancreas: Normal. No ductal dilation. Spleen: Normal. No splenomegaly. Adrenal glands: Normal. No mass. Kidneys and ureters: Bilateral renal cysts, negative for follow up. Stomach and bowel: Diverticulosis without diverticulitis. Appendix: No evidence of appendicitis. Intraperitoneal space: Unremarkable. No free air. No significant fluid collection. Vasculature: Unremarkable. No abdominal aortic aneurysm. Lymph nodes: Unremarkable. No enlarged lymph nodes. Urinary bladder: Unremarkable as visualized. Reproductive: Unremarkable as visualized. Bones/joints: Unremarkable. No acute fracture. Soft tissues: Unremarkable. CT/CT chest abd pel w con* IMPRESSION: 1. Negative for traumatic injury to the chest. 2. Coronary artery atherosclerotic calcifications. 3. Emphysematous changes. 4. Upper thoracic spine benign-appearing vertebral body hemangioma. IMPRESSION: 1. Negative for traumatic injury to the abdomen or pelvis. 2. Cholelithiasis. 3. Bilateral renal cysts, negative for follow up. 4. Diverticulosis without diverticulitis.
[2021-08-06 00:07] LABS: Troponin(5th) Baseline 33 ng/L (0-10)
[2021-08-06] MEDS: iodixanol 320 mg/mL 100mL Btl IV (00:20)
[2021-08-06 00:47] LABS: Creatine Phosphokinase 1274 U/L (26-192)
[2021-08-06] MEDS: acetaminophen 325 mg Tablet 650 MG PO (01:06)
[2021-08-06] MEDS: sodium chloride 0.9% 1,000 ML 999 ML IV (01:07)
[2021-08-06 01:18] LABS: Troponin 5 2HR 22.89 ng/L (0-10)
[2021-08-06 01:19] LABS: Troponin 5 2HR Delta -10.11 ABS# (0-10)
--- NOTE | 2021-08-06 01:30 | XRR_ITS ---
PROCEDURE INFORMATION: Exam: XR Left Femur Exam date and time: 08/06/2021 1:30 AM Age: 85 years old Clinical indication: Pain and injury or trauma; Blunt trauma; Injury details: Bruising left hip S/P fall; Prior surgery; Surgery date: 6+ months; Surgery type: Left knee; Additional info: Fall, pain TECHNIQUE: Imaging protocol: XR Left femur. Views: 2 views. COMPARISON: CT chest abd pel w con* 08/06/2021 12:18 AM FINDINGS: Bones/joints: Left total knee replacement. Soft tissues: Unremarkable. Organs: Residual contrast in the urinary bladder. XR/XR femur LT min 2V* [id number] IMPRESSION: No acute findings.
[2021-08-06 01:34] VITALS: RESP 22
[2021-08-06] MEDS: morphine 4 mg/mL SDV 1 mL IVP ×2 (01:34→04:21)
--- NOTE | 2021-08-06 01:48 | ECG_ITS ---
[facility] Test Date: 2021-08-06 Pat Name: Sheri Montes Department: Room: Gender: Female Hat Forming Machine Feeder: : 1935 Requested By: Ken Abbott Order Number: [id number] Leena MD: Caity Mccarthy M.D. Measurements Intervals [place] Rate: 78 P: 45 OH: 164 QRS: 12 QRSD: 64 T: 34 QT: 382 QTc: 436 Interpretive Statements SINUS RHYTHM NONSPECIFIC ST & T-WAVE ABNORMALITY Compared to ECG 08/05/2021 23:59:51 T-wave abnormality now present ST (T wave) deviation no longer present Electronically Signed On 08-07-2021 20:00:06 FOOD SERVER by Caity Mccarthy M.D. [id number]
[2021-08-06 04:21] VITALS: RESP 18; O2SAT 98
[2021-08-06 04:26] VITALS: BP 176/64; PULSE 88; RESP 20; O2SAT 96
[2021-08-06 05:32] LABS: Troponin 5 6HR 30.74 ng/L (0-10); Troponin 5 6HR Delta -2.26 ng/L (0-12)
[2021-08-06 05:34] LABS: Add Urine Microscopic? YES; Bacteria Urine 1+ /hpf; Bilirubin Urine 1+ (Negative); Blood Urine 2+ (Negative); Glucose Urine UA Norm (Normal); Ketones Urine 1+ (Negative); Leukocyte Esterase Urine Negative (Negative); Mucus Urine 2+ /hpf; Nitrate Urine Positive (Negative); Protein Urine 1+ (Negative); RBC Urine 0-4 /hpf (0-2); Squamous Epithelial Cell Urine 25-40 /hpf (0-5); Urine Appearance Cloudy (CLEAR); Urine Color Yellow (Yellow); Urobilinogen Urine Norm (Negative); WBC Urine 15-25 /hpf (0-5); pH Urine 5 (5-7)
--- NOTE | 2021-08-06 05:48 | ECG_ITS ---
[facility] Test Date: 2021-08-06 Pat Name: Sheri Montes Department: Room: Gender: Female Customer Relations Representative: : 1935 Requested By: Ken Abbott Order Number: [id number] Leena MD: Jesika Mariscal M.D. Measurements Intervals [place] Rate: 70 P: 4 MN: 160 QRS: 8 QRSD: 68 T: 26 QT: 376 QTc: 408 Interpretive Statements SINUS RHYTHM NONSPECIFIC ST & T-WAVE ABNORMALITY Compared to ECG 08/06/2021 02:04:58 No significant changes Electronically Signed On 08-06-2021 5:09:35 BOTTOMING MACHINE OPERATOR by Jesika Mariscal M.D. [id number]
[2021-08-06] MEDS: sodium chloride 0.9% 1,000 ML 75 ML IV ×2 (07:16→23:12)
--- NOTE | 2021-08-06 07:16 | PC.NURSE ---
while at bedside pt is resting quietly with eyes closed in bed. pt aroused via verbal stimuli. pt is a&ox4. pt is in nad. pt denies any further needs at this time.
[2021-08-06] MEDS: cefTRIAXone 1,000 MG in sodium chloride 0.9% (plus) 50 ML 100 MG IV (07:17)
[2021-08-06] MEDS: enoxaparin 40 mg/0.4 mL Syringe SUBCUT (07:20)
--- NOTE | 2021-08-06 08:13 | PC.PHAR ---
pts daughter mervat verified pts medications-mervat states the pt use to take donepezil 5mg states the pt stop taking 2 months ago-mervat states the pt has been out of the rosuvastatin but is unsure how long states [facility] is suppose to be sending -notes are made in the pharmacy comments
[2021-08-06] MEDS: amlodipine 5 mg Tablet PO (08:58)
[2021-08-06] MEDS: metoprolol succinate ER (24 HR) 50 mg Tablet PO (08:59)
--- NOTE | 2021-08-06 09:07 | P.HP_ITS ---
Providers/Chief Complaint Admitting Physician: Zabrina Castañeda MD Primary Care Provider: Rafael Fatima MD Chief Complaint: UTI History of Present Illness History taken through the daughter and niece at bedside. Sheri Montes is a 85 year old female with past medical history of CAD, CKD, dementia, hypertension, hyperlipidemia, GERD who lives by herself with history of recurrent renal stones and UTI with Klebsiella, E. coli and Enterococcus was brought into the ER after being found down. As per the daughter who spoke with her last on Thursday it seemed like that patient fell on Thursday and was on floor till last night when she was brought into the ER for last 3 days. Patient is complaining of occasional dysuria, pain in her bilateral lower limbs more so in her hip. Patient does not recall the preceding factors to the fall. Patient has been vaccinated for COVID-19. As per the daughter patient has had a history of recurrent falls and is getting physical therapy as an outpatient at home for gait disturbances. She is also being tested for possible parkinsonism as an outpatient. Blood work in the ER showed a white count of 10,000, hemoglobin of 14.7, chemistry showing sodium 142, chloride 104, creatinine of 1.2, BUN of 51, calcium of 11.1, CPK of 1274, AST/ALT of 80/44, baseline troponin of 33 with delta of -2 and 6 hours, UA positive for nitrite, negative for leuk esterase with 1+ bacteria, COVID-19 PCR negative Review of Systems General: Reports: ROS unobtainable due to mental status Medications/Allergies Home Medications Medication Instructions Recorded Confirmed Last Taken Type amlodipine 5 mg PO BEDTIME 12/24/19 08/06/21 01/08/20 History metoprolol succinate 50 mg PO BEDTIME 12/24/19 08/06/21 01/08/20 History rosuvastatin 40 mg PO BEDTIME 12/24/19 08/06/21 01/08/20 History aspirin 81 mg PO BEDTIME 04/30/20 08/06/21 Unknown History nitroglycerin [Nitrostat] 0.4 mg SUBLINGUAL Q5M PRN 04/30/20 08/06/21 Unknown History Natrol Cognium Complete Gummy 1 tab PO DAILY 08/06/21 08/06/21 Unknown History Vitamin B12 Gummies 1 tab PO DAILY 08/06/21 08/06/21 Unknown History Vitamin C Gummies 1 tab PO DAILY 08/06/21 08/06/21 Unknown History Vitamin D3 Gummies 1 tab PO DAILY 08/06/21 08/06/21 Unknown History melatonin 3 mg PO BEDTIME PRN 08/06/21 08/06/21 Unknown History Allergies Allergy/AdvReac Type Severity Reaction Status Date / Time alendronate sodium Allergy Unknown Verified 04/30/20 20:10 [From Fosamax] PFSH Acute PFSH: Medical History (Updated 08/06/21 @ 12:20 by Rudy Dumont MD) CAD (coronary artery disease) Cholelithiasis Chronic kidney disease, stage II (mild) COVID-19 Dementia GERD (gastroesophageal reflux disease) Hyperlipidemia Hypertension Left ureteral calculus Obstructive pyelonephritis Surgical History History of coronary angioplasty History of hysterectomy History of knee surgery History of tubal ligation Family History Father , in his 60's CAD (coronary artery disease) Mother , at age 45 Cancer colon cancer Social History Smoking and tobacco status: former smoker Alcohol intake: never Adopted: No Caregiver/support person: No Lives independently: Yes Marital status: / Current occupational status: retired History of recent travel: No Current gender identity: Female Vitals/I&O/Wt Last Vital Signs Pulse 88 08/06/21 04:26 Resp 20 H 08/06/21 04:26 BP 176/64 08/06/21 04:26 Pulse Ox 96 08/06/21 04:26 08/05/21 08/06/21 08/06/21 22:59 06:59 14:59 Intake Total 1000 / 1000 Balance 1000 / 1000 Weight last 48 hrs Weight 52.163 kg Physical Exam Narrative: EXAM NARRATIVE: General: No acute distress, sleeping, weak, frail, to physical touch HEENT: PERRLA, pupils bilaterally equal and reactive Chest: Normal vesicular breath sounds, no added sounds, equal good air entry bilaterally CVS: S1-S2 regular, no murmurs, no tachycardia, no gallops, no rubs Abdomen: Soft, nontender, no organomegaly, bowel sounds present Neuro: No focal deficits, no facial deformity, AO x3, moving all limbs, Extremities: Bilateral pulses equal and palpable, complaining of pain in her left hip Data : 08/05/21 22:55 08/05/21 22:55 Micro: Microbiology 08/06/21 07:57 Blood Culture - Preliminary Blood SPECIMEN COLLECTED 08/06/21 07:55 Blood Culture - Preliminary Blood SPECIMEN COLLECTED A&P Assessment and plan (1) UTI (urinary tract infection): Status: Acute Qualifiers: Urinary tract infection type: acute pyelonephritis Qualified Code(s): N10 - Acute pyelonephritis (2) Fall: Status: Acute (3) Rhabdomyolysis: Status: Acute (4) ROOPA (acute kidney injury): Status: Acute (5) Hypertension: Status: Acute Additional A&P Information 85-year-old female with past medical history of UTI, CAD was brought into the ER after being found on floor for most likely for last 3 days and found to be in rhabdomyolysis and acute kidney injury. Fall: Unknown etiology. Could be secondary to weakness from UTI. Cannot rule out arrhythmia given history of CAD. Telemetry. PT/OT evaluation. Fall precautions. Check CT hip to rule out any acute fracture. CT chest abdomen pelvis done in the ER negative for any acute abnormality. Check orthostatics. Rhabdomyolysis: Most likely secondary to being on the floor for more than 72 hours. Normal saline at 75 cc/h. Repeat CPK in the morning. ROOPA: Most likely secondary to rhabdomyolysis and dehydration. IV fluids as above. Monitor BMP daily. Transaminitis: Secondary to rhabdomyolysis. Treatment as above. Monitor daily. UTI: Complaining of dysuria. Nitrite positive. CT abdomen pelvis done in the ER negative for any obstructive uropathy. History of UTI secondary to Klebsiella, E. coli and Enterococcus. Continue with IV ceftriaxone started in the ER. E. coli and Klebsiella sensitive to ceftriaxone. For Enterococcus we will add vancomycin. Will dose as per creatinine clearance. Hypertension: Goal blood pressure less than 140/90 mmHg. Continue with home dose of amlodipine, metoprolol. CODE STATUS: Discussed in detail with patient's DPOA/daughter in detail. Reviewed from medical chart from before. DNR/DNI. Famotidine for PUD prophylaxis. Lovenox for DVT prophylaxis. Cardiac diet. Discharge planning: Discussed in detail with daughter at bedside. Discussed about possible potential discharge to SNF given recurrent fall because of gait disturbances. Daughter is agreeable. Will consult case management. Attestations Medical Necessity Statement*: Admission for more than 2 midnights for management of ROOPA, rhabdomyolysis in setting of fall and being found down on floor for more than 3 days, UTI Time Spent in Patient Care: Greater than 35 minutes (>than 50% of time spen t in counselling and/or direct pt care on unit) . Coding Level of Care Code Acute Reverberatory Furnace Operator for [facility] Fwd Diagnoses UTI (urinary tract infection) N10 Urinary tract infection type: acute pyelonephritis Fall W19.XXXA Rhabdomyolysis M62.82 ROOPA (acute kidney injury) N17.9 Hypertension I10
[2021-08-06 09:33] LABS: Adenovirus Not Detected (NOT DETECT); Chlamydia Pneumoniae Not Detected (NOT DETECT); Coronavirus 229E,HKU1,NL63,OC4 Not Detected (NOT DETECT); Human Metapneumovirus Not Detected (NOT DETECT); Human Rhinovirus/Enterovirus Not Detected (NOT DETECT); Influenza A Not Detected (NOT DETECT); Influenza A H1 Not Detected (NOT DETECT); Influenza A H1-2009 Not Detected (NOT DETECT); Influenza A H3 Not Detected (NOT DETECT); Influenza B Not Detected (NOT DETECT); Mycoplasma Pneumoniae Not Detected (NOT DETECT); Parainfluenza Virus Type 1 Not Detected (NOT DETECT); Parainfluenza Virus Type 2 Not Detected (NOT DETECT); Parainfluenza Virus Type 3 Not Detected (NOT DETECT); Parainfluenza Virus Type 4 Not Detected (NOT DETECT); Respiratory Syncytial Virus A Not Detected (NOT DETECT); Respiratory Syncytial Virus B Not Detected (NOT DETECT); SARS-COV-2 Not Detected (NOT DETECT)
[2021-08-06] MEDS: vancomycin 750 MG in sodium chloride 0.9% 250 ML 250 MG IV (10:17)
--- NOTE | 2021-08-06 11:32 | PC.NURSE ---
Pt in bed, resting quietly at this time. No signs of pain or distress. Family at bedside.
--- NOTE | 2021-08-06 12:11 | CT_ITS ---
WS: [id number] CT hip RT wo con* [id number] REASON FOR EXAM: post fall IV CONTRAST ADMINISTERED: Noncontrast TOTAL EXAM DLP: 648.[address] scans at [facility] use at least one of these dose optimization techniques: automat ed exposure control; mA and/or kV adjustment per patient size (includes targeted exams where dose is matched to clinical indication); or iterative reconstruction. FINDINGS: Femoral head and neck are intact. Acetabulum is intact. Superior and inferior pubic ramus are intact. Mild narrowing of the right hip joint space. No soft tissue abnormality. CT/CT hip RT wo con* [id number] IMPRESSION: No fracture of the right hip.
--- NOTE | 2021-08-06 12:11 | CT_ITS ---
WS: [id number] CT hip LT wo con* [id number] REASON FOR EXAM: post fall IV CONTRAST ADMINISTERED: Noncontrast TOTAL EXAM DLP: 715.[address] scans at [facility] use at least one of these dose optimization techniques: automat ed exposure control; mA and/or kV adjustment per patient size (includes targeted exams where dose is matched to clinical indication); or iterative reconstruction. FINDINGS: Femoral head and neck are intact. The acetabulum is intact. Superior inferior pubic ramus are intact. Mild narrowing of the left hip joint space. No soft tissue abnormality. CT/CT hip LT wo con* [id number] IMPRESSION: No acute abnormality.
[2021-08-06] MEDS: famotidine 20 mg/2 mL INJ IVP ×2 (13:24→23:12)
[2021-08-06 15:24] VITALS: BP 136/84; PULSE 69; RESP 16; O2SAT 95
[2021-08-06 17:00] VITALS: BP 123/67; PULSE 69; RESP 16; TEMP 36.7; O2SAT 94
--- NOTE | 2021-08-06 17:33 | PC.NURSE ---
updated patient's daughter Brenda on patient.
--- NOTE | 2021-08-06 18:49 | PC.NURSE ---
Patient has a bruise on left hip
[2021-08-06 20:00] VITALS: BP 118/68; PULSE 76; RESP 18; TEMP 36.8
[2021-08-06] MEDS: atorvastatin 40 mg Tablet 80 MG PO (20:34)
[2021-08-06] MEDS: aspirin 81 mg EC Tablet PO (20:34)
[2021-08-07] VITALS (8 sets, daily range): BP systolic 121–158; BP diastolic 64–74; PULSE 63–87; RESP 16–18; TEMP 36.5–36.9; O2SAT 94–98
--- NOTE | 2021-08-07 01:38 | PC.NURSE ---
1930 Sandwhich, fruit, and sara given due to pt missed supper. Sitting up in bed eating. 1999 Pt up in room, confused. Pulled gown off, pulled IV out, bleeding controlled. Pt assisted to BSC to void 200cc. Linens changed and fresh gown applied. assisted back to bed. Bed alarm set. Call light in reach and explained. Pt does not appear to understand. HX dementia.
--- NOTE | 2021-08-07 01:45 | PC.NURSE ---
2100 Pt sleeping in bed. arouses to take meds. no difficulty swallowing.
--- NOTE | 2021-08-07 01:46 | PC.NURSE ---
2200 Pt resting in bed on right side. No distress.
--- NOTE | 2021-08-07 01:47 | PC.NURSE ---
0015 Pt sleeping in bed. has pulled gown off but still covered with it. Room warm. Thermastat adjusted.
[2021-08-07] MEDS: cefTRIAXone 1,000 MG in sodium chloride 0.9% (plus) 50 ML 100 MG IV (05:46)
[2021-08-07] MEDS: enoxaparin 40 mg/0.4 mL Syringe SUBCUT (05:46)
--- NOTE | 2021-08-07 06:06 | PC.NURSE ---
0600 pt trying to get up. Gown off. linens in floor. Attempted to reorient pt. Still confused. Assisted back to lay down. gown and linens on. Turned to right side.
[2021-08-07 06:39] LABS: Basophils % 0.7 %; Eosinophils # 0.3 10^3/uL (0.0-0.8); Eosinophils % 5.7 %; Hemoglobin 11.9 g/dL (11.5-15.3); Lymphocytes # 0.9 10^3/uL (0.8-4.8); Lymphocytes % 19.1 %; Mean Corpuscular HGB Conc 31.3 g/dL (30.0-36.0); Mean Corpuscular Hemoglobin 29.4 pg (28.0-34.0); Mean Corpuscular Volume 93.8 fl (81-99); Mean Platelet Volume 10.2 fL (7.4-10.4); Monocytes # 0.4 10^3/uL (0.2-0.9); Monocytes % 8.8 %; Neutrophils # 2.97 10^3/uL (1.8-7.7); Neutrophils % 65.3 %; Nucleated Red Blood Cells % 0 %; Platelet Count 225 10^3/cmm (130-400); Red Blood Count 4.05 10^6/uL (4.1-5.3); Red Cell Distribution Width 13.7 % (12.1-15.1); White Blood Count 4.6 10^3/uL (4.0-10.0)
--- NOTE | 2021-08-07 06:39 | PC.NURSE ---
0630 pt moving around in bed trying to fold and refold her linens. Her gown is pulled off. Assisted pt to bsc.voids 400cc. assisted back to bed. gown reapplied.
[2021-08-07 07:00] LABS: Alanine Aminotransferase 31 U/L (0-33); Albumin Level 3.1 g/dL (3.5-5.2); Alkaline Phosphatase 72 IU/L (35-105); Anion Gap 14.4 (5-19); Aspartate Amino Transferase 41 U/L (0-32); Blood Urea Nitrogen 35 mg/dL (8-23); Calcium 8.9 mg/dL (8.5-10.5); Carbon Dioxide 21 mmol/L (22-29); Chloride 110 mmol/L (98-107); Glucose 86 mg/dL (65-115); Osmolality Calculated 301 mOsm/kg (285-295); Potassium 3.4 mmol/L (3.5-5.1); Sodium 142 mmol/L (136-145); Total Bilirubin 0.9 mg/dL (0.15-1.2); Total Protein 5.1 g/dL (6.6-8.7)
[2021-08-07 07:15] LABS: Creatine Phosphokinase 506 U/L (26-192)
--- NOTE | 2021-08-07 07:21 | PC.NURSE ---
notified Dr Dumont and care nurse Kristine that patient's CK is 506 this AM
[2021-08-07] MEDS: amlodipine 5 mg Tablet PO (08:50)
[2021-08-07] MEDS: metoprolol succinate ER (24 HR) 50 mg Tablet PO (08:50)
--- NOTE | 2021-08-07 10:56 | PC.CHAP ---
Pastoral Care Encounter/Spiritual Assessment Type of Contact [] Declined marine structural welder visit [] Patient/Family/Request visit [] Outpatient visit [] Follow-up visit [] Physician referral [] Code/Alert [x] Routine visit [] Staff referral [] Actively dying [] Patient sleeping [] Family support [] [] Out of room [] Palliative care [] [] Receiving care in room [] Pre-surgical visit [] Trauma [] Long length of stay [] ICU visit [] Other: Relational/Emotional Strength [x] Patient feels connected with others/family/visitors/staff [] Distress [] Loneliness/isolation [] Abandonment Spirituality of Patient [x] Person of Drea [] Attends Islam of their Drea [x] Believes in Prayer [] Reads Bible or Mandaeism materials [] There are Spiritual issues to be addressed Storeroom Supervisor Interventions [x] Prayer [x] Active listening [x] Non-anxious presence [] Spiritual/emotional support [] Crisis/trauma care [] Spiritual counseling [] Bereavement support [] Provided bereavement packet [] Provided Bible/devotional materials [] Provided toy/stuffed animal, coloring book to patient or family member [] Provided Communion [] Anointing/[place] [] Salvation [x] Completed spiritual assessment [] Other: Impact on Illness or Injury [] Angry [] Fearful [] Anxious [] Often cries [] Exhaustion [] Unable to work [] Unable to attend presybeterian [] Unable to walk/stand [] Unable to read [] Unable to drive [] Unable to eat/drink [] Unable to sleep [] Unable to be with family [] Patient intubated [] Other: Summary Time spent with patient 10 min
--- NOTE | 2021-08-07 10:57 | PC.CHAP ---
Pastoral Care Encounter/Spiritual Assessment Type of Contact [] Declined waiter/waitress club visit [] Patient/Family/Request visit [] Outpatient visit [] Follow-up visit [] Physician referral [] Code/Alert [] Routine visit [] Staff referral [] Actively dying [] Patient sleeping [] Family support [] [] Out of room [] Palliative care [] [] Receiving care in room [] Pre-surgical visit [] Trauma [] Long length of stay [] ICU visit [] Other: Relational/Emotional Strength [] Patient feels connected with others/family/visitors/staff [] Distress [] Loneliness/isolation [] Abandonment Spirituality of Patient [] Person of Drea [] Attends Restorationism of their Drea [] Believes in Prayer [] Reads Bible or Tenriism materials [] There are Spiritual issues to be addressed Geoscientist Interventions [] Prayer [] Active listening [] Non-anxious presence [] Spiritual/emotional support [] Crisis/trauma care [] Spiritual counseling [] Bereavement support [] Provided bereavement packet [] Provided Bible/devotional materials [] Provided toy/stuffed animal, coloring book to patient or family member [] Provided Communion [] Anointing/[place] [] Salvation [] Completed spiritual assessment [] Other: Impact on Illness or Injury [] Angry [] Fearful [] Anxious [] Often cries [] Exhaustion [] Unable to work [] Unable to attend jew [] Unable to walk/stand [] Unable to read [] Unable to drive [] Unable to eat/drink [] Unable to sleep [] Unable to be with family [] Patient intubated [] Other: Summary Time spent with patient
[2021-08-07] MEDS: potassium chloride ER 20 mEq Tablet 40 MEQ PO (11:27)
[2021-08-07] MEDS: vancomycin 750 MG in sodium chloride 0.9% 250 ML 250 MG IV (11:38)
[2021-08-07] MEDS: sodium chloride 0.9% 1,000 ML 75 ML IV (13:48)
--- NOTE | 2021-08-07 14:01 | PM.PN ---
Subjective Subjective: Interval history: No events overnight. Today morning seen working with physical therapy. Fairly weak. Able to walk around with assistance and walker. Awake and alert. Denies any nausea vomiting, headache. States pain is better. States wants to go home. Discussed in detail regarding need for possible discharge to SNF for at least couple of weeks as she regains her strength. Patient states she will continue to think about it. Vitals/I&O/Wt Last Vital Signs Temp 98.4 F 08/07/21 11:41 Pulse 84 08/07/21 11:41 Resp 16 08/07/21 11:41 BP 143/72 08/07/21 11:41 Pulse Ox 97 08/07/21 11:41 08/06/21 08/07/21 08/07/21 22:59 06:59 14:59 Intake Total 1780 / 1780 100 / 1880 1290 / 1290 Output Total 200 / 200 200 / 400 Balance 1580 / 1580 -100 / 1480 1290 / 1290 Weight last 48 hrs Weight 54.25 kg Weight 52.163 kg Physical Exam Narrative: EXAM NARRATIVE: General: No acute distress,weak, frail, HEENT: PERRLA, pupils bilaterally equal and reactive Chest: Normal vesicular breath sounds, no added sounds, equal good air entry bilaterally CVS: S1-S2 regular, no murmurs, no tachycardia, no gallops, no rubs Abdomen: Soft, nontender, no organomegaly, bowel sounds present Neuro: No focal deficits, no facial deformity, AO x3, moving all limbs, Extremities: Bilateral pulses equal and palpable, complaining of pain in her left hip Data : 08/07/21 04:25 08/07/21 04:25 Micro: Microbiology 08/06/21 07:38 Urine Culture - Preliminary Urine,Clean Catch 08/06/21 07:57 Blood Culture - Preliminary Blood NEGATIVE TO DATE 08/06/21 07:55 Blood Culture - Preliminary Blood NEGATIVE TO DATE A&P Assessment and plan (1) UTI (urinary tract infection): Status: Acute Qualifiers: Urinary tract infection type: acute pyelonephritis Qualified Code(s): N10 - Acute pyelonephritis (2) Fall: Status: Acute (3) Rhabdomyolysis: Status: Acute (4) ROOPA (acute kidney injury): Status: Acute (5) Hypertension: Status: Acute Additional A&P Information 85-year-old female with past medical history of UTI, CAD was brought into the ER after being found on floor for most likely for last 3 days and found to be in rhabdomyolysis and acute kidney injury. Fall: Unknown etiology. Could be secondary to weakness from UTI. Cannot rule out arrhythmia given history of CAD. Telemetry. PT/OT evaluation. Fall precautions. CT imaging negative for hip fracture or any acute abnormality in chest or abdomen pelvis. Orthostatics negative. Rhabdomyolysis: Most likely secondary to being on the floor for more than 72 hours. Resolving. Normal saline at 50 cc/h. Repeat CPK in the morning. ROOPA: Resolved. Most likely secondary to rhabdomyolysis and dehydration. IV fluids as above. Monitor BMP daily. Transaminitis: Resolved. Secondary to rhabdomyolysis. Treatment as above. Monitor daily. UTI: Complaining of dysuria. Nitrite positive. CT abdomen pelvis done in the ER negative for any obstructive uropathy. History of UTI secondary to Klebsiella, E. coli and Enterococcus. Continue with IV ceftriaxone which should cover E. coli and Klebsiella sensitive to ceftriaxone. For Enterococcus we will add vancomycin. Will dose as per creatinine clearance. Will de-escalate antibiotics as per culture results and sensitivities. Hypertension: Goal blood pressure less than 140/90 mmHg. Continue with home dose of amlodipine, metoprolol. CODE STATUS: Discussed in detail with patient's DPOA/daughter in detail. Reviewed from medical chart from before. DNR/DNI. Famotidine for PUD prophylaxis. Lovenox for DVT prophylaxis. Cardiac diet. Discharge planning: Discussed in detail with daughter at bedside. Discussed about possible potential discharge to SNF given recurrent fall because of gait disturbances. Daughter is agreeable. Patient is brought states will continue to think about it. Case management on board. Attestations Medical Necessity Statement*: Requires further hospitalization for management of rhabdomyolysis, ROOPA, possible UTI, physical deconditioning while safe discharge planning is sought Time Spent in Patient Care: (>than 50% of time spent in counselling and/or direct pt care on unit). Coding Level of Care Code Acute Coal Cager for [facility] Fwd Diagnoses UTI (urinary tract infection) N10 Urinary tract infection type: acute pyelonephritis Fall W19.XXXA Rhabdomyolysis M62.82 ROOPA (acute kidney injury) N17.9 Hypertension I10
[2021-08-07] MEDS: famotidine 20 mg Tablet PO (18:22)
[2021-08-07] MEDS: atorvastatin 40 mg Tablet 80 MG PO (21:44)
[2021-08-07] MEDS: aspirin 81 mg EC Tablet PO (21:44)
[2021-08-08] VITALS: BP 139/54; PULSE 68; RESP 16; TEMP 36.8; O2SAT 95
[2021-08-08 04:00] VITALS: BP 148/66; PULSE 70; RESP 18; TEMP 36.6; O2SAT 95
[2021-08-08] MEDS: sodium chloride 0.9% 1,000 ML 75 ML IV (04:48)
[2021-08-08] MEDS: enoxaparin 40 mg/0.4 mL Syringe SUBCUT (06:41)
[2021-08-08] MEDS: cefTRIAXone 1,000 MG in sodium chloride 0.9% (plus) 50 ML 100 MG IV (06:41)
[2021-08-08 06:52] LABS: Alanine Aminotransferase 34 U/L (0-33); Albumin Level 3.3 g/dL (3.5-5.2); Alkaline Phosphatase 72 IU/L (35-105); Anion Gap 12.5 (5-19); Aspartate Amino Transferase 41 U/L (0-32); Blood Urea Nitrogen 20 mg/dL (8-23); Calcium 8.6 mg/dL (8.5-10.5); Carbon Dioxide 23 mmol/L (22-29); Chloride 108 mmol/L (98-107); Glucose 105 mg/dL (65-115); Osmolality Calculated 293 mOsm/kg (285-295); Potassium 3.5 mmol/L (3.5-5.1); Sodium 140 mmol/L (136-145); Total Bilirubin 0.9 mg/dL (0.15-1.2); Total Protein 5.3 g/dL (6.6-8.7)
[2021-08-08 07:12] VITALS: BP 130/61; PULSE 62; RESP 16; TEMP 36.7; O2SAT 94
[2021-08-08 07:30] LABS: Creatine Phosphokinase 376 U/L (26-192)
[2021-08-08] MEDS: famotidine 20 mg Tablet PO ×2 (09:59→17:37)
[2021-08-08] MEDS: metoprolol succinate ER (24 HR) 50 mg Tablet PO (09:59)
[2021-08-08] MEDS: amlodipine 5 mg Tablet PO (09:59)
[2021-08-08 11:37] VITALS: BP 128/74; PULSE 75; RESP 16; TEMP 36.7; O2SAT 94
[2021-08-08 16:00] VITALS: BP 177/86; PULSE 87; RESP 18; TEMP 36.8; O2SAT 94
--- NOTE | 2021-08-08 16:51 | P.PN_ITS ---
Subjective Subjective: Interval history: Patient is resting in bed. Daughter at bedside. Has c/o some soreness in hip area. Weak. Has had some confusion. Awaiting placement Vitals/I&O/Wt Last Vital Signs Temp 98.1 F 08/08/21 11:37 Pulse 75 08/08/21 11:37 Resp 16 08/08/21 11:37 BP 128/74 08/08/21 11:37 Pulse Ox 94 08/08/21 11:37 08/08/21 08/08/21 08/08/21 06:59 14:59 22:59 Intake Total 1120 / 3260 650 / 650 Output Total 1000 / 2125 500 / 500 Balance 120 / 1135 150 / 150 Weight last 48 hrs Weight 55.111 kg Physical Exam Narrative: EXAM NARRATIVE: elderly patient, not in acute distress Const: COMMON NORMALS: no acute distress GENERAL APPEARANCE: comfortable ORIENTATION/CONSCIOUSNESS: Yes oriented to place and Yes oriented to time HENMT: COMMON NORMALS: normocephalic and atraumatic HEAD & SCALP: normocephalic and atraumatic Eye: COMMON NORMALS: Equal, round and reactive pupils present and no scleral icterus PUPIL: Yes Equal, round and reactive pupils present Neck/C-Spine: COMMON NORMALS: full ROM, supple and no JVD GENERAL: Yes trachea midline Chest: COMMONS NORMALS: normal inspection of the chest Resp: COMMON NORMALS: normal respiratory effort, No use of accessory muscles and clear to auscultation bilaterally AUSCULTATION: clear to auscultation bilaterally Cardio: COMMON NORMALS: no JVD, regular rate, S1 normal heart sound present, S2 normal heart sound present and Peripheral pulses 2+ throughout RATE: regular rate HEART SOUNDS: S1 normal heart sound present and S2 normal heart sound present PERIPHERAL PULSES: Peripheral pulses 2+ throughout GI: COMMON NORMALS: Soft to palpation; negative for No hepatosplenomegaly present PALPATION: Yes Soft to palpation, No Tenderness to palpation present (GI), No Guarding due to palpation present (GI) and No No hepatosplenomegaly present Extremity: COMMON NORMALS: normal to inspection and no calf tenderness Neuro: COMMON NORMALS: moves all extremities and no sensory deficits noted SENSORIUM/ORIENTATION: Yes oriented to place and Yes oriented to time Psych: COMMON NORMALS: mental status grossly normal and cooperative Skin: COMMON NORMALS: no rashes or lesions noted, no jaundice and no petechiae GENERAL SKIN EXAM: no rashes or lesions noted Data : 08/07/21 04:25 08/08/21 05:06 Micro: Microbiology 08/06/21 07:38 Urine Culture - Final Urine,Clean Catch A&P Assessment and plan (1) Fall: 85 year old with fall/rhabdo, weakness, UTI Worked with PT. Weak and requires additional therapy and strengthening Pending placement PT/OT Telemetry Fall precautions CT imaging negative for acute hip fracture/dislocation Status: Acute (2) Rhabdomyolysis: Resolved. CPK levels improved Will D/C IVF PO intake better Status: Acute (3) ROOPA (acute kidney injury): ROOPA resolved with hydration Continue to monitor renal function/I and O Status: Acute (4) UTI (urinary tract infection): Urine culture with mixed alivia, contaminants Blood cultures x 2 no growth so far Afebrile D/C rocephin Status: Acute Qualifiers: Urinary tract infection type: acute pyelonephritis Qualified Code(s): N10 - Acute pyelonephritis (5) Hypertension: Stable Continue metoprolol and amlodipine Status: Acute (6) Generalized weakness: Continue PT/OT Placement pending Daughter at bedside and discussed and answered questions Status: Acute Attestations Medical Necessity Statement*: Requires ongoing hospitalization for management of acute problems as noted including weakness and safe discharge plan Coding Level of Care Code Acute Call Center Operator for [facility] Fwd Exam Comprehensive Diagnoses Fall W19.XXXA Rhabdomyolysis M62.82 ROOPA (acute kidney injury) N17.9 UTI (urinary tract infection) N10 Urinary tract infection type: acute pyelonephritis Hypertension I10 Generalized weakness R53.1
--- NOTE | 2021-08-08 18:44 | PC.NURSE ---
PT PULLED OUT HER IV, IV WAS SECURED WITH COBAN.
[2021-08-08 20:00] VITALS: BP 145/71; PULSE 65; RESP 18; TEMP 37.4; O2SAT 96
[2021-08-08] MEDS: atorvastatin 40 mg Tablet 80 MG PO (20:58)
[2021-08-08] MEDS: aspirin 81 mg EC Tablet PO (20:58)
[2021-08-09] VITALS (7 sets, daily range): BP systolic 134–170; BP diastolic 62–80; PULSE 64–90; RESP 16–19; TEMP 36.8–37.1; O2SAT 96–98
[2021-08-09] MEDS: acetaminophen 325 mg Tablet 650 MG PO (03:41)
[2021-08-09] MEDS: enoxaparin 40 mg/0.4 mL Syringe SUBCUT (06:24)
[2021-08-09] MEDS: famotidine 20 mg Tablet PO (08:08)
[2021-08-09] MEDS: metoprolol succinate ER (24 HR) 50 mg Tablet PO (08:08)
[2021-08-09] MEDS: amlodipine 5 mg Tablet PO (08:08)
[2021-08-09 09:06] LABS: Anion Gap 17.9 (5-19); Blood Urea Nitrogen 15 mg/dL (8-23); Calcium 9.1 mg/dL (8.5-10.5); Carbon Dioxide 22 mmol/L (22-29); Chloride 105 mmol/L (98-107); Creatine Phosphokinase 275 U/L (26-192); Glucose 133 mg/dL (65-115); Osmolality Calculated 295 mOsm/kg (285-295); Potassium 3.9 mmol/L (3.5-5.1); Sodium 141 mmol/L (136-145)
--- NOTE | 2021-08-09 10:16 | PC.SOCIAL ---
IMM Update Pg. 2 of IMM updated and reviewed with patient and daughter, who verbalized understanding. Copy provided.
--- NOTE | 2021-08-09 13:45 | P.DS_ITS ---
Discharge Providers Date of Admission: 08/06/21 15:59 Date of Discharge: August 09, 2021 Attending Provider at Admission: Zabrina Castañeda MD Attending Provider at Discharge: Farhana Covington MD Primary Care Provider: Rafael Fatima MD Diagnoses at Discharge Discharge Diagnosis (1) Fall: Status: Acute (2) Rhabdomyolysis: Status: Acute (3) ROOPA (acute kidney injury): Status: Acute (4) UTI (urinary tract infection): Status: Acute Qualifiers: Urinary tract infection type: acute pyelonephritis Qualified Code(s): N10 - Acute pyelonephritis (5) Hypertension: Status: Acute (6) Generalized weakness: Status: Acute Reason for Visit Reason for Visit: UTI Hospital Course Hospital Course Patient is 85 year old female with h/o CAD, CKD, dementia, HTN, hyperlipidemia and GERD who presented following fall. Patient noted to have rhabdomyolysis from fall as well as ROOPA, generalized weakness and UTI. Patient given IVF and antibiotics and monitoried closely. Patient seen by PT/OT. Case management worked with patient and family to find placement in SNF. Patient will go home and return to [place] next week as noted Patient stable to discharge today. Physical Exam Narrative: EXAM NARRATIVE: Elderly patient, chronically ill appearing, not completely oriented Const: ORIENTATION/CONSCIOUSNESS: Yes oriented to person and Yes oriented to place HENMT: COMMON NORMALS: normocephalic and atraumatic HEAD & SCALP: normocephalic and atraumatic Neck/C-Spine: COMMON NORMALS: full ROM, no lymphadenopathy, supple and no JVD Chest: COMMONS NORMALS: normal inspection of the chest Resp: COMMON NORMALS: No retractions and clear to auscultation bilaterally AUSCULTATION: clear to auscultation bilaterally Cardio: COMMON NORMALS: no JVD, regular rate, regular rhythm and No murmurs present (Cardio) RATE: regular rate RHYTHM: regular rhythm GI: COMMON NORMALS: Soft to palpation and No hepatosplenomegaly present AUSCULTATION: Yes normoactive bowel sounds PALPATION: Yes Soft to palpation, No Tenderness to palpation present (GI) and Yes No hepatosplenomegaly present : COMMON NORMALS: Yes no CVA tenderness BLADDER/KIDNEY EXAM: Yes no CVA tenderness Back/Pelvis: COMMON NORMALS: no CVA tenderness and no thoracic nor lumbar tenderness Extremity: COMMON NORMALS: normal to inspection and full ROM NARRATIVE EXTREMITY EXAM: has chronic 1 plus bilateral pedal edemal Neuro: COMMON NORMALS: moves all extremities and no sensory deficits noted SENSORIUM/ORIENTATION: Yes oriented to person and Yes oriented to place Psych: COMMON NORMALS: cooperative ATTITUDE: Yes calm Skin: COMMON NORMALS: no rashes or lesions noted, no wounds, turgor normal and no jaundice GENERAL SKIN EXAM: no rashes or lesions noted and turgor normal Discharge Data Data Completed and Pending: Completed Studies During Hospitalization Category Date Time Status CT cervical spin wo con* [id number] Urge nt Cat Scan 08/05/21 23:[address] chest abd pel w con* Urgent Cat Scan 08/05/21 23:[address] head wo con* [id number] Urgent Cat Scan 08/05/21 21:[address] hip LT wo con* [id number] Routine Cat Scan 08/06/21 12:[address] hip RT wo con* [id number] Routine Cat Scan 08/06/21 12:11 Completed XR femur LT min 2 V* [id number] Urgent Exams 08/06/21 01:30 Completed Pending at discharge Category Date Time Status Blood Culture Sta t Lab 08/06/21 07:57 Results Vancomycin Trough Timed Lab 08/10/21 10:00 Ordered Labs from last 24 hours 08/09/21 08:32 Sodium 141 Potassium 3.9 Chloride 105 Carbon Dioxide 22 Anion Gap 17.9 BUN 15 Creatinine 0.7 GFR Calculation Not Reportable Glucose 133 H Calculated Osmolal ity 295 Calcium 9.1 Creatine Kinase 275 H Vitals: Last Vital Signs Temp 98.2 F 08/09/21 11:10 Pulse 73 08/09/21 11:10 Resp 18 08/09/21 11:10 BP 156/75 08/09/21 11:10 Pulse Ox 96 08/09/21 11:10 Discharge Plan Discharge Patient Disposition: Home Condition: Stable Prescriptions: No Action aspirin 81 mg Tablet,Delayed Release (Dr/Ec) 81 mg PO BEDTIME RF: 0 nitroglycerin [Nitrostat] 0.4 mg Tablet, Sublingual 0.4 mg SUBLINGUAL Q5M PRN (Reason: Chest Pain) RF: 0 metoprolol succinate 50 mg tablet extended release 24 hr 50 mg PO BEDTIME RF: 0 amlodipine 5 mg tablet 5 mg PO BEDTIME RF: 0 rosuvastatin 40 mg tablet 40 mg PO BEDTIME RF: 0 melatonin 3 mg Tablet 3 mg PO BEDTIME PRN (Reason: Sleep) RF: 0 Natrol Cognium Complete Gummy 1 tab PO DAILY RF: 0 Vitamin B12 Gummies 1 tab PO DAILY RF: 0 Vitamin C Gummies 1 tab PO DAILY RF: 0 Vitamin D3 Gummies 1 tab PO DAILY RF: 0 Discharge Orders: Discharge Order (Routine); Ordered 08/09/21 Ordered By: Farhana Covington Discharge Diet: Cardiac Discharge Activity: Use walker/crutches as instructed and As per PT/OT instructions Patient Instructions: Opioid Safety Activity Restrictions/Additional Instructions: You have an appointment scheduled with Dr De Luna on 09/23/2021 at 12:30pm. Once evaluated, if you are diagnosed with a movement type disorder please discuss with Dr De Luna to inquire if the BIG and LOUD program that is provided at the [facility] under Omar Muñiz would be beneficial. If so, please request orders for this outpatient program which occurs 4 days a week. [facility] is [phone]. (LOUD program focuses on improving vocal abilities and the BIG program works to improve phy sical abilities with gait, etc.) You should be receiving a new ID Card from your [employer] Plan in the mail at [address] [place] [address] within 7-10 business days. Your ID number with this plan was changed at the beginning of the year. New ID# [id number]. Group# [id number] Decision was made today between you/ your family/ and Fiorella at [facility] that you will discharge home today. Your information has been sent to PCP by Fiorella to fill out paperwork to admit to [facility]. Your COVID swab has also been collected. Once COVID test returns and admissions paperwork is completed you will go to [facility]. The plan is for this to happen early next week. Once you are are at facility Fiorella will obtain orders for therapy. Discharge Attestations Time Spent in Discharge Care*: greater than 30 min Specific Discharge Activities: educating patient, discussing with pcp/other providers, discussing with test case developer/social workers/dc planners, documenting/other paperwork and evaluating patient/reviewing data Status at Discharge: Cognitive status at discharge: mildly impaired cognition , Behavioral status at discharge: cooperative , Functional status at discharge: uses cane/walker Overall status at discharge: patient is progressing back to baseline Quality Metrics Clinical Quality Measures During this hospital stay, did patient experience: None Coding Level of Care Code Acute Chg FW DC note Exam Comprehensive Diagnoses Fall W19.XXXA Rhabdomyolysis M62.82 ROOPA (acute kidney injury) N17.9 UTI (urinary tract infection) N10 Urinary tract infection type: acute pyelonephritis Hypertension I10 Generalized weakness R53.1
== END 2021-08-09 17:01 | disposition home or self-care (01) | DRG 690 ==
LOC: ER 08-06 01:48 → ER IP 08-06 05:12 → MEDSURG 08-06 15:58
PROVIDERS: Student in an Organized Health Care Education/Training Program; Admitting Provider Student in an Organized Health Care Education/Training Program; Emergency Provider Emergency Medicine; PCP Family Medicine; Visit Provider Internal Medicine
DX: N10 Acute pyelonephritis (principal); M62.82 Rhabdomyolysis; N39.0 Urinary tract infection, site not specified; F03.90 Unspecified dementia, unspecified severity, without behavioral disturbance, psychotic disturbance, mood disturbance, and anxiety; I12.9 Hypertensive chronic kidney disease with stage 1 through stage 4 chronic kidney disease, or unspecified chronic kidney disease; N18.2 Chronic kidney disease, stage 2 (mild); Z87.440 Personal history of urinary (tract) infections; R29.6 Repeated falls; I25.10 Atherosclerotic heart disease of native coronary artery without angina pectoris; Z98.61 Coronary angioplasty status; Z86.16 Personal history of COVID-19; K21.9 Gastro-esophageal reflux disease without esophagitis; E78.5 Hyperlipidemia, unspecified; Z87.891 Personal history of nicotine dependence; N17.9 Acute kidney failure, unspecified; E86.0 Dehydration; R26.9 Unspecified abnormalities of gait and mobility; Z79.82 Long term (current) use of aspirin
CPT/HCPCS: 12345; 36415; 36416; 51701; 70450; 71260; 72125; 73552; 73700; 74177; 80048; 80053; 81001; 82550; 82962; 83605; 84443; 84484; 85025; 87040; 87086; 87635; 93005; 94664; 96372; 97110; 97116; 97162; 97165; G0378; J0696; J1650; J2270; J3370; J3490; J7030; J7050; Q9967

== ENCOUNTER → 2021-08-28 10:51 | Outpatient (BNVA) | payer MEDICARE, SELFPAY | PROVIDERS: PCP Family Medicine; Visit Provider Nurse Practitioner Family | DX: N39.0 Urinary tract infection, site not specified (principal) | CPT/HCPCS: 81003; 87077; 87086; 87184 ==

== ENCOUNTER 2021-09-17 21:22 | Emergency (ER) | payer MEDICARE, SELFPAY ==
[2021-09-17 21:33] VITALS: BP 165/82; PULSE 65; RESP 16; TEMP 36.8; O2SAT 96; BMI 21.4
--- NOTE | 2021-09-17 21:40 | CTR_ITS ---
PROCEDURE INFORMATION: Exam: CT Head Without Contrast Exam date and time: 09/17/2021 9:40 PM Age: 85 years old Clinical indication: Injury or trauma; Fall; Blunt trauma (contusions or hematomas); Patient HX: Patient fell walking to her bed at home. Hit head on edge of dresser. Hematoma to RT eyebrow. TECHNIQUE: Imaging protocol: Computed tomography of the head without contrast. Radiation optimization: All CT scans at this facility use at least one of these dose optimization techniques: automated exposure control; mA and/or kV adjustment per patient size (includes targeted exams where dose is matched to clinical indication); or iterative reconstruction. COMPARISON: CT head wo con* [id number] 08/05/2021 9:55 PM RADIATION DOSE METRICS: Total DLP (mGy-cm): 736.73 FINDINGS: Brain: Moderate diffuse white matter disease likely reflecting chronic microvascular ischemic changes. Cerebral ventricles: No ventriculomegaly. Paranasal sinuses: Visualized sinuses are unremarkable. No fluid levels. Mastoid air cells: Visualized mastoid air cells are well aerated. Bones/joints: Unremarkable. No acute fracture. Soft tissues: Right frontal scalp soft tissue swelling CT/CT head wo con* [id number] IMPRESSION: Negative for intracranial hemorrhage or mass effect.
--- NOTE | 2021-09-17 21:40 | ED_ITS ---
HPI - Head Injury General: Chief complaint: Head Injury Stated complaint: FALL Time Seen by Provider: 09/17/21 21:26 History of Present Illness: 85-year-old female comes in for injury to the head. Patient resides at [facility], and was getting ready for bed and had walked off leaving her walker lost her balance and fell striking the right side of her brow. Patient denies any head injury. Patient appears in mild to no pain. Patient appears well. Review of Systems General: Reports: 10 or more systems reviewed and unremarkable except in HPI and below Skin/Breast: Reports: other (laceration right eye brow) [facility] ED PFSH: Medical History CAD (coronary artery disease) Cholelithiasis Chronic kidney disease, stage II (mild) COVID-19 Dementia GERD (gastroesophageal reflux disease) Hyperlipidemia Hypertension Left ureteral calculus Obstructive pyelonephritis Recurrent UTI Surgical History History of coronary angioplasty History of hysterectomy History of knee surgery History of tubal ligation Family History Father , in his 60's CAD (coronary artery disease) Mother , at age 45 Cancer colon cancer Social History Smoking and tobacco status: former smoker Alcohol intake: never Lives independently: Yes Marital status: / Current occupational status: retired History of recent travel: No Physical Exam Const: COMMON NORMALS: alert HENMT: HEAD & SCALP: normal to inspection FACE & SINUS: laceration (right lateral eye brow, 2cm) MOUTH: Normal oral and palatal mucosa present THROAT: posterior oropharynx normal Eye: COMMON NORMALS: Equal, round and reactive pupils present and EOMs intact bilaterally PUPIL: Yes Equal, round and reactive pupils present Neck/C-Spine: COMMON NORMALS: full ROM CERVICAL SPINE: No Cervical spine tenderness and No Paracervical muscle tenderness Chest: CHEST: No tenderness Resp: COMMON NORMALS: normal respiratory effort and clear to auscultation bilaterally AUSCULTATION: clear to auscultation bilaterally Cardio: COMMON NORMALS: regular rate and regular rhythm RATE: regular rate RHYTHM: regular rhythm GI: COMMON NORMALS: Soft to palpation PALPATION: Yes Soft to palpation Extremity: OTHER: bilateral mild pedal edema Neuro: KENNETH COMA SCALE: document GCS findings [place] coma scale eye opening: Spontaneous [place] coma scale verbal response: Orientated [place] coma scale motor response: Obey commands Kenneth coma scale total score: 15 SENSORIUM/ORIENTATION: Yes alert Psych: COMMON NORMALS: cooperative Skin: TRAUMA: laceration (right eye brow) linear Procedures Laceration Laceration 1: Site: face (Right eyebrow) Side (If applicable): right Size (cm): 2 Description: linear Depth: simple, single layer Pre-repair: wound explored and irrigated extensively Skin layer closed with: other (Skin adhesive) Course Vital Signs: Vital signs: Vital Signs Temperature 98.3 F 09/17/21 22:56 Pulse Rate 69 09/17/21 22:56 Respiratory Rate 16 09/17/21 22:56 Blood Pressure 157/80 09/17/21 22:56 Pulse Oximetry 96 09/17/21 22:56 MDM - Head Injury Medcial Decision Making 85-year-old female comes in from a local long-term after suffering a fall. Patient reported incident without any difficulties. Patient uses a walker to ambulate but went without her walker and she stumbled and fell. On exam patient has a 2 cm laceration to the right eyebrow. Patient is alert oriented. Patient responds appropriate to questions. Palpation of the body elicits no pain. Patient moves extremities without difficulty. No spine tenderness is noted with palpation. Differential diagnosis includes closed head injury, intracranial bleeding, laceration to the brow. Wound was cleaned and approximated and held in place with skin adhesive. CT scan of the head showed no acute abnormality. Reviewed exam with patient and family with recommendations for treatment and follow-up. They reported understanding. Lab Data Radiology Impressions Head CT 09/17/21 21:40 IMPRESSION: Negative for intracranial hemorrhage or mass effect. Discharge Plan Discharge Patient Disposition: Home Clinical Impression: Fall Qualifiers: Encounter type: initial encounter Qualified Code(s): W19.XXXA - Unspecified fall, initial encounter Laceration of brow without complication Qualifiers: Encounter type: initial encounter Qualified Code(s): S01.81XA - Laceration without foreign body of other part of head, initial encounter Condition: Stable Prescriptions: No Action methenamine hippurate 1 gram tablet 1 g PO BID Qty: 60 12RF Rx Instructions: Take 1000 mg of vitamin C with each dose of methenamine. Start after completing antibiotic ciprofloxacin HCl 500 mg tablet 500 mg PO BID Qty: 28 0RF aspirin 81 mg Tablet,Delayed Release (Dr/Ec) 81 mg PO BEDTIME 0RF nitroglycerin [Nitrostat] 0.4 mg Tablet, Sublingual 0.4 mg SUBLINGUAL Q5M PRN (Reason: Chest Pain) 0RF metoprolol succinate 50 mg tablet extended release 24 hr 50 mg PO BEDTIME 0RF amlodipine 5 mg tablet 5 mg PO BEDTIME 0RF rosuvastatin 40 mg tablet 40 mg PO BEDTIME 0RF melatonin 3 mg Tablet 3 mg PO BEDTIME PRN (Reason: Sleep) 0RF Natrol Cognium Complete Gummy 1 tab PO DAILY 0RF Vitamin B12 Gummies 1 tab PO DAILY 0RF Vitamin C Gummies 1 tab PO DAILY 0RF Vitamin D3 Gummies 1 tab PO DAILY 0RF Discharge Orders: Discharge ED (Routine); Ordered 09/17/21 Ordered By: Ted Bernal Referrals: Rafael Fatima MD [Primary Care Provider] - Patient Instructions: Skin Adhesive Care (ED) Activity Restrictions/Additional Instructions: Keep wound clean and dry. Activity as tolerated. Follow-up with primary care for further instruction. Return to ED for new concerns. Coding Level of Care Code ED Eap Counselor for [facility] Fwd Exam Comprehensive
[2021-09-17 22:56] VITALS: BP 157/80; PULSE 69; RESP 16; TEMP 36.8; O2SAT 96
[2021-09-18 00:12] VITALS: BP 157/80; PULSE 69; RESP 16; TEMP 36.8; O2SAT 96
== END 2021-09-17 23:20 | disposition home or self-care (01) ==
PROVIDERS: Emergency Provider Nurse Practitioner Family; PCP Family Medicine
DX: S01.81XA Laceration without foreign body of other part of head, initial encounter (principal); Z79.82 Long term (current) use of aspirin; S01.111A Laceration without foreign body of right eyelid and periocular area, initial encounter; I25.10 Atherosclerotic heart disease of native coronary artery without angina pectoris; I12.9 Hypertensive chronic kidney disease with stage 1 through stage 4 chronic kidney disease, or unspecified chronic kidney disease; N18.2 Chronic kidney disease, stage 2 (mild); F03.90 Unspecified dementia, unspecified severity, without behavioral disturbance, psychotic disturbance, mood disturbance, and anxiety; E78.5 Hyperlipidemia, unspecified; Z87.891 Personal history of nicotine dependence; W01.10XA Fall on same level from slipping, tripping and stumbling with subsequent striking against unspecified object, initial encounter
CPT/HCPCS: 12011; 70450; 99283

== ENCOUNTER → 2021-09-23 12:24 | Outpatient (BNVA) | payer MEDICARE, SELFPAY | PROVIDERS: PCP Clinical Nurse Specialist Adult Health; Referring Provider Clinical Nurse Specialist Adult Health; Visit Provider Specialist | DX: G20 Parkinson's disease (principal); F02.80 Dementia in other diseases classified elsewhere, unspecified severity, without behavioral disturbance, psychotic disturbance, mood disturbance, and anxiety | CPT/HCPCS: 96116; 99204; 99205 ==

== ENCOUNTER 2021-10-21 14:16 | Outpatient (CLI) | payer MEDICARE, SELFPAY ==
[2021-10-21 14:55] LABS: Add Urine Microscopic? YES; Bilirubin Urine Neg (Negative); Blood Urine Neg (Negative); Glucose Urine UA Norm (Normal); Ketones Urine Negative (Negative); Leukocyte Esterase Urine 1+ (Negative); Nitrate Urine Positive (Negative); Protein Urine Trace (Negative); Urine Appearance Clear (CLEAR); Urine Color Yellow (Yellow); Urobilinogen Urine Norm (Negative); pH Urine 5 (5-7)
[2021-10-21 15:04] LABS: Add Urine Culture? No; Bacteria Urine 2+ /hpf; Calcium Oxalate Crystals Urine 25-40 /hpf; Squamous Epithelial Cell Urine 0-4 /hpf (0-5); WBC Urine 15-25 /hpf (0-5)
== END 2021-10-21 14:17 | disposition home or self-care (01) ==
LOC: LAB 14:24
PROVIDERS: PCP Family Medicine; Visit Provider Family Medicine
DX: N39.0 Urinary tract infection, site not specified (principal)
CPT/HCPCS: 81001; 87077; 87086; 87186

== ENCOUNTER 2021-10-28 14:06 | Outpatient (CLI) | payer MEDICARE, SELFPAY ==
[2021-10-28 14:58] LABS: Bilirubin Urine Neg (Negative); Blood Urine Neg (Negative); Glucose Urine UA Norm (Normal); Ketones Urine Negative (Negative); Nitrate Urine Negative (Negative); Protein Urine Trace (Negative); Specific Gravity, Urine 1.025 (1.005-1.030); Urine Appearance Cloudy (CLEAR); Urine Color Yellow (Yellow); pH Urine 5 (5-7)
[2021-10-28 14:59] LABS: Add Urine Culture? Yes; Bacteria Urine 3+ /hpf; Leukocyte Esterase Urine Trace (Negative); RBC Urine 0-4 /hpf (0-2); Squamous Epithelial Cell Urine 0-4 /hpf (0-5); Urobilinogen Urine Norm (Negative); WBC Urine 25-40 /hpf (0-5)
== END 2021-10-28 14:07 | disposition home or self-care (01) ==
PROVIDERS: PCP Family Medicine; Visit Provider Family Medicine
DX: N39.0 Urinary tract infection, site not specified (principal)
CPT/HCPCS: 81001

== ENCOUNTER → 2021-11-06 15:59 | Outpatient (BNVA) | payer MEDICARE, SELFPAY | PROVIDERS: PCP Family Medicine; Visit Provider Nurse Practitioner Family | DX: N39.0 Urinary tract infection, site not specified (principal); N20.9 Urinary calculus, unspecified | CPT/HCPCS: 81003 ==

== ENCOUNTER 2022-01-07 13:39 | Outpatient (CLI) | payer MEDICARE, SELFPAY ==
[2022-01-07 15:20] LABS: Protein Urine Neg (Negative); Specific Gravity, Urine 1.025 (1.005-1.030); Urine Appearance Cloudy (CLEAR); Urine Color Yellow (Yellow); pH Urine 5 (5-7)
[2022-01-07 15:21] LABS: Add Urine Microscopic? YES; Bilirubin Urine Neg (Negative); Blood Urine Neg (Negative); Glucose Urine UA Norm (Normal); Ketones Urine Negative (Negative); Leukocyte Esterase Urine Negative (Negative); Nitrate Urine Negative (Negative); RBC Urine 0-4 /hpf (0-2); Squamous Epithelial Cell Urine 0-4 /hpf (0-5); Urobilinogen Urine 4 mg/dL (Negative); WBC Urine 0-4 /hpf (0-5)
[2022-01-07 15:22] LABS: Amorphous Sediment Urine 4+ /hpf; Bacteria Urine 3+ /hpf; Uric Acid Crystals Urine 25-40 /hpf
[2022-01-07 15:23] LABS: Add Urine Culture? No
== END 2022-01-07 13:40 | disposition home or self-care (01) ==
LOC: LAB 13:41
PROVIDERS: PCP Family Medicine; Visit Provider Family Medicine
DX: N39.0 Urinary tract infection, site not specified (principal)
CPT/HCPCS: 81001; 87077; 87086; 87186

== ENCOUNTER 2022-03-14 07:42 | Outpatient (CLI) | payer MEDICARE, SELFPAY ==
[2022-03-14 08:24] LABS: Glucose Urine UA Norm (Normal); Protein Urine 2+ (Negative); Specific Gravity, Urine 1.025 (1.005-1.030); Urine Appearance Cloudy (CLEAR); Urine Color Yellow (Yellow); pH Urine 5 (5-7)
[2022-03-14 08:25] LABS: Add Urine Microscopic? YES; Bacteria Urine 4+ /hpf; Bilirubin Urine Neg (Negative); Blood Urine 2+ (Negative); Ketones Urine 1+ (Negative); Leukocyte Esterase Urine 1+ (Negative); Nitrate Urine Positive (Negative); RBC Urine 0-4 /hpf (0-2); Squamous Epithelial Cell Urine 0-4 /hpf (0-5); Urobilinogen Urine Norm (Negative); WBC Urine 40-55 /hpf (0-5)
[2022-03-14 08:26] LABS: Add Urine Culture? No; Calcium Oxalate Crystals Urine 0-4 /hpf; Fine Granular Casts Urine 0-4 /lpf; Hyaline Casts Urine 0-4 /lpf; Mucus Urine 2+ /hpf
== END 2022-03-14 07:43 | disposition home or self-care (01) ==
PROVIDERS: PCP Family Medicine; Visit Provider Family Medicine
DX: N39.0 Urinary tract infection, site not specified (principal)
CPT/HCPCS: 81001; 87077; 87086; 87186

== ENCOUNTER 2022-03-25 13:54 | Emergency (ER) | payer MEDICARE, SELFPAY ==
[2022-03-25 14:03] VITALS: BP 130/75; PULSE 57; RESP 14; TEMP 36.5; O2SAT 98; BMI 19.1
--- NOTE | 2022-03-25 14:19 | XR_ITS ---
WS: [id number] Exam: XR chest 1V portable [id number] Date/Time of Exam: 03/25/2022 2:40 PM Reason For Exam: ams Comparison 04/30/2020. The lungs are hyperinflated and clear. Normal cardiomediastinal silhouette. No pleural effusions. Reg ional bony structures are intact. XR/XR chest 1V portable [id number] IMPRESSION: 1. Pulmonary hyperinflation which may indicate obstructive lung disease. No acu te process.
--- NOTE | 2022-03-25 14:24 | CT_ITS ---
WS: [id number] CT HEAD NONCONTRAST HISTORY: ams/confusion TECHNIQUE: Contiguous axial imaging performed through the brain in 2.5 mm imaging. Bone and soft tiss ue windows. Sagittal and coronal reformats reviewed. All CT scans at [facility] use at least one of these dose optimization techniques: automated exposure control; mA and/or kV adjustment per pa tient size (includes targeted exams where dose is matched to clinical indication); or iterative recon struction. DLP: 1022.58 mGy.cm COMPARISON: 09/17/2021 No acute intracranial hemorrhage, midline shift or mass effect. To BE and small vessel ischemic disease. Small bilateral lacunar infarcts in the basal ganglia. Moder ate small vessel ischemic disease. No large territory infarct. Ventricles: Normal size with no hydrocephalus. No inferior displacement of cerebellar tonsils. Paranasal sinuses: As visualized are clear. Mastoid air cells: Well pneumatized. Calvarium and scalp: Skull is intact with no soft tissue edema or swelling. Scar formation in the RIG HT frontal scalp. CT/CT head wo con* [id number] IMPRESSION: 1. No acute intracranial hemorrhage or edema. 2. Atrophy and small vessel ischemic changes are stable. No acute intracranial process.
--- NOTE | 2022-03-25 14:26 | ED_ITS ---
HPI - General Adult General: Chief complaint: Urogenital-Female Stated complaint: CONFUSION Time Seen by Provider: 03/25/22 14:17 History of Present Illness: Patient is an 86-year-old female history of hypertension, CAD, COVID, dementia, recurrent UTI presenting to the emergency room for concerns of confusion. Patient recently completed course of antibiotics for UTI. Patient was on Keflex 250 mg daily for 30 days. Patient was noted to be confused and agitated earlier today and was brought to the emergency room for further evaluation. On arrival, patient is AAO x1 (self only). Patient has intermittent confusion. Rest of history limited. Onset: unknown Duration:ongoing Location:halfway Severity:moderate Review of Systems General: Reports: ROS unobtainable due to mental status Neuro: Reports: other (+confusion / +AMS) PFS ED PFSH: Medical History CAD (coronary artery disease) Cholelithiasis Chronic kidney disease, stage II (mild) COVID-19 Dementia Establishing care with new doctor, encounter for GERD (gastroesophageal reflux disease) Hyperlipidemia Hypertension Left ureteral calculus Obstructive pyelonephritis Recurrent UTI Urolithiasis Surgical History History of coronary angioplasty History of hysterectomy History of knee surgery History of tubal ligation Family History Father , in his 60's CAD (coronary artery disease) Mother , at age 45 Cancer colon cancer Social History Smoking and tobacco status: former smoker Alcohol intake: never Lives independently: Yes Marital status: / Current occupational status: retired History of recent travel: No Physical Exam Const: COMMON NORMALS: alert HENMT: COMMON NORMALS: atraumatic HEAD & SCALP: atraumatic MOUTH: moist mucous membranes not abnormal Eye: COMMON NORMALS: EOMs intact bilaterally and conjunctivae normal CONJUNCTIVA: Yes conjunctivae normal Neck/C-Spine: COMMON NORMALS: full ROM and supple Resp: COMMON NORMALS: normal respiratory effort and clear to auscultation bilaterally AUSCULTATION: clear to auscultation bilaterally Cardio: COMMON NORMALS: regular rate RATE: regular rate GI: COMMON NORMALS: Soft to palpation and non-tender PALPATION: Yes Soft to palpation Extremity: COMMON NORMALS: full ROM Neuro: SENSORIUM/ORIENTATION: Yes alert MOTOR EXAM: No Abnormal motor strength present and Other motor observations present (no focal motor deficits) OTHER: AAOx1 (self), moving all extremities, cranial nerves II through XII grossly intact, Psych: OTHER: +unable to assess due to AMS Course Vital Signs: Vital signs: Vital Signs Temperature 97.7 F 03/25/22 14:03 Pulse Rate 66 03/25/22 16:27 Respiratory Rate 14 03/25/22 14:03 Blood Pressure 131/109 03/25/22 16:27 Pulse Oximetry 97 03/25/22 16:27 Oxygen Delivery Me thod 03/25/22 16:27 MDM - General Adult Medical Decision Making Patient is an 86-year-old female history of hypertension, CAD, COVID, dementia, recurrent UTI presenting to the emergency room for concerns of confusion. Patient recently completed course of antibiotics for UTI. CT is negative for any acute findings. Lab work-up showed white count 5.6. Rest of lab within normal limit including UA. Troponin with delta less than 5. EKG is nonischemic. Patient is not actively complaining chest pain. Dp suspect ACS. UA is consistent with UTI today. Patient received ceftriaxone in ER. CT head negative for any acute findings. X-ray chest appears to be clear. Patient has had blood in the urine in the past. UA is equivocal for possible early UTI. Do not suspect kidney stone given low RBCs per high-power field and patient denies any flank pain nausea/vomiting. Cr of 1.2 consistent with possible dehydration. Patient received IVF. Discussed case with patient's niece Rosana who agrees with following up with patient's kidney function in 1 week for repeat evaluation with his primary care provider. Rx cefdinir for UTI Disposition: Discharge. Patient counseled regarding diagnostic impression, t reatment plan. Patient given ED strict return precautions to return for continuation, worsening, or development of new symptoms. Instructed to f/u w/ PCP regarding symptoms today. Patient verbalized understanding. Lab Data : 03/25/22 14:37 03/25/22 14:37 Radiology Impressions Chest X-Ray 03/25/22 14:19 IMPRESSION: 1. Pulmonary hyperinflation which may indicate obstructive lung disease. No acute process. Head CT 03/25/22 14:24 IMPRESSION: 1. No acute intracranial hemorrhage or edema. 2. Atrophy and small vessel ischemic changes are stable. No acute intracranial process. Laboratory Results WBC 5.6 10^3/uL (4.0-10.0) 03/25/22 14:37 RBC 4.70 10^6/uL (4.1-5.3) 03/25/22 14:37 Hgb 14.0 g/dL (11.5-15.3) 03/25/22 14:37 Hct 43.3 % (37.0-47.0) 03/25/22 14:37 MCV 92.1 fl (81-99) 03/25/22 14:37 MCH 29.8 pg (28.0-34.0) 03/25/22 14:37 MCHC 32.3 g/dL (30.0-36.0) 03/25/22 14:37 RDW 13.5 % (12.1-15.1) 03/25/22 14:37 Plt Count 213 10^3/cmm (130-400) 03/25/22 14:37 MPV 10.0 fL (7.4-10.4) 03/25/22 14:37 Neut % (Auto) 75.7 % 03/25/22 14:37 Lymph % (Auto) 15.3 % 03/25/22 14:37 [place] % (Auto) 7.4 % 03/25/22 14:37 Eos % (Auto) 0.9 % 03/25/22 14:37 Baso % (Auto) 0.5 % 03/25/22 14:37 Neut # (Auto) 4.20 10^3/uL (1.8-7.7) 03/25/22 14:37 Lymph # (Auto) 0.9 10^3/uL (0.8-4.8) 03/25/22 14:37 [place] # (Auto) 0.4 10^3/uL (0.2-0.9) 03/25/22 14:37 Eos # (Auto) 0.1 10^3/uL (0.0-0.8) 03/25/22 14:37 Baso # (Auto) 0.0 10^3/uL (0.0-0.1) 03/25/22 14:37 Nucleated RBC % (auto) 0 % 03/25/22 14:37 Nucleated RBCs # 0.0 /100WBC 03/25/22 14:37 Specimen Type Arterial 03/25/22 16:35 Sample Site Radial, left 03/25/22 16:35 ABG pH 7.43 (7.35-7.45) 03/25/22 16:35 ABG pCO2 36.0 mmHg (35-45) 03/25/22 16:35 ABG pO2 71.5 mmHg (80.0-100.0) L 03/25/22 16:35 ABG HCO3 23.9 mmol/L (22-26) 03/25/22 16:35 ABG O2 Saturation 96.6 03/25/22 16:35 ABG Base Excess 0.0 mmol/L (-2.0-2.0) 03/25/22 16:35 Ivan Test Pos 03/25/22 16:35 A-a O2 Gradient 4.3 mmHg (5-10) L 03/25/22 16:35 Hematocrit 39.2 % (37-47) 03/25/22 16:35 Hgb O2 Saturation 95.0 % (95-100) 03/25/22 16:35 Carboxyhemoglobin 0.9 %THgb (0.4-20.1) 03/25/22 16:35 Methemoglobin 0.7 % (0.4-1.5) 03/25/22 16:35 Total Hemoglobin 12.8 g/dL (12-16) 03/25/22 16:35 Sodium 142.0 mmol/L (131-143) 03/25/22 16:35 Potassium 3.4 mmol/L (3.5-5.0) L 03/25/22 16:35 Glucose 104.0 mg/dL (70-115) 03/25/22 16:35 Ionized Calcium 1.3 mmol/L (1.1-1.4) 03/25/22 16:35 O2 Delivery Device Room air 03/25/22 16:35 FiO2 21.0 % 03/25/22 16:35 Production Truck Driver ID Cak 03/25/22 16:35 Sodium 140 mmol/L (136-145) 03/25/22 14:37 Potassium 3.3 mmol/L (3.5-5.1) L 03/25/22 14:37 Chloride 103 mmol/L (98-107) 03/25/22 14:37 Carbon Dioxide 27 mmol/L (22-29) 03/25/22 14:37 Anion Gap 13.3 (5-19) 03/25/22 14:37 BUN 26 mg/dL (8-23) H 03/25/22 14:37 Creatinine 1.2 mg/dL (0.5-0.9) H 03/25/22 14:37 GFR Calculation Not Reportable 03/25/22 14:37 Glucose 171 mg/dL (65-115) H 03/25/22 14:37 Calculated Osmolality 299 mOsm/kg (285-295) H 03/25/22 14:37 Calcium 10.1 mg/dL (8.5-10.5) 03/25/22 14:37 Troponin T Baseline 17 ng/L (0-10) H 03/25/22 14:37 Troponin T 120 Minute 16.94 ng/L (0-10) H 03/25/22 16:19 Delta Troponin T -0.06 ABS# (0-10) L 03/25/22 16:19 Urine Color Yellow (Yellow) 03/25/22 16:58 Urine Appearance Sl hazy (CLEAR) 03/25/22 16:58 Urine pH 6.5 (5-7) 03/25/22 16:58 Ur Specific Alba 1.020 (1.005-1.030) 03/25/22 16:58 Urine Protein 1+ (Negative) H 03/25/22 16:58 Urine Glucose (UA) 1+ (Normal) H 03/25/22 16:58 Urine Ketones Negative (Negative) 03/25/22 16:58 Urine Blood 2+ (Negative) H 03/25/22 16:58 Urine Nitrate Negative (Negative) 03/25/22 16:58 Urine Bilirubin Neg (Negative) 03/25/22 16:58 Urine Urobilinogen Norm mg/dL (Negative) 03/25/22 16:58 Ur Leukocyte Esterase Trace (Negative) H 03/25/22 16:58 Urine RBC 5-10 /hpf (0-2) H 03/25/22 16:58 Urine WBC 10-15 /hpf (0-5) H 03/25/22 16:58 Ur Squamous Epith Cells 0-4 /hpf (0-5) H 03/25/22 16:58 Amorphous Sediment Not Reportable 03/25/22 16:58 Urine Bacteria 3+ /hpf (NONE) H 03/25/22 16:58 Hyaline Casts 10-15 /lpf H 03/25/22 16:58 Fine Granular Casts 5-10 /lpf H 03/25/22 16:58 Imaging Data Other Imaging: Radiologist's impression: [address] [address] [address] Scan Report Signed Patient: Sheri Montes Unit #: [id number] : 1935 Age/Sex: 86 / F ADM Date: 03/25/22 Loc: ER Room/Bed: Attending Dr: Ordering Provider/Ordering MD: Venu Patel MD Date of Service: 03/25/22 Procedure(s): CT head wo con* [id number] Accession Number(s): [id number] Report Number: [id number] WS: [id number] CT HEAD NONCONTRAST HISTORY: ams/confusion TECHNIQUE: Contiguous axial imaging performed through the brain in 2.5 mm imaging. Bone and soft tissue windows. Sagittal and coronal reformats reviewed.? All CT scans at [facility] use at least one of these dose optimization techniques: automated exposure control; mA and/or kV adjustment per patient size (includes targeted exams where dose is matched to clinical indication); or iterative reconstruction. DLP: 1022.58 mGy.cm COMPARISON: 09/17/2021 No acute intracranial hemorrhage, midline shift or mass effect. To BE and small vessel ischemic disease. Small bilateral lacunar infarcts in the basal ganglia. Moderate small vessel ischemic disease. No large territory infarct. Ventricles:? Normal size with no hydrocephalus. No inferior displacement of cerebellar tonsils. Paranasal sinuses: As visualized are clear. Mastoid air cells: Well pneumatized. Calvarium and scalp: Skull is intact with no soft tissue edema or swelling. Scar formation in the RIGHT frontal scalp. CT/CT head wo con* [id number] IMPRESSION: ? 1.? No acute intracranial hemorrhage or edema. 2.? Atrophy and small vessel ischemic changes are stable. No acute intracranial process. ? Dictated By: Rosenda Garza DO Signed By: Rosenda Garza DO Signed Date/Time: 03/25/22 1451 DD/ 1447 Discharge Plan Discharge Patient Disposition: Home Clinical Impression: Confusion, Altered mental status, Acute UTI, ROOPA (acute kidney injury) Condition: Stable Prescriptions: New cefdinir 300 mg capsule 300 mg PO BID 10 Days Qty: 20 0RF No Action aspirin 81 mg Tablet,Delayed Release (Dr/Ec) 81 mg PO DAILY@16 metoprolol succinate 50 mg tablet extended release 24 hr 50 mg PO DAILY@16 amlodipine 5 mg tablet 5 mg PO DAILY@16 rosuvastatin 40 mg tablet 40 mg PO DAILY@16 donepezil 5 mg Tablet 5 mg PO DAILY@16 Refresh Relieva 0.5-0.9 % Drops 1 drp ophthalmic (eye) DAILY@16 Systane Complete 0.6 % Drops 1 drp ophthalmic (eye) DAILY@16 Cipro 500 mg Tablet 500 mg PO BID Discharge Orders: Discharge ED (Routine); Ordered 03/25/22 Ordered By: Venu Patel Referrals: Peter Tirado DO [Primary Care Provider] - Discharge Diet: Advance as tolerated Discharge Activity: Increase activity as tolerated Patient Instructions: Altered Mental Status (ED) Activity Restrictions/Additional Instructions: Come back if you have any new or concerning issues. Please take your antibiotics as instructed. Watch out for signs of skin changes/redness, mouth redness or swelling, nausea/vomiting, diarrhea, blood in the urine or any new or concerning complaints. Please follow up with your primary care provider to recheck your kidney function in 1 week. Coding Level of Care Code ED Head Of Music for Caroline Fwd Exam Comprehensive
[2022-03-25 14:41] LABS: Basophils % 0.5 %; Eosinophils # 0.1 10^3/uL (0.0-0.8); Eosinophils % 0.9 %; Hematocrit 43.3 % (37.0-47.0); Lymphocytes # 0.9 10^3/uL (0.8-4.8); Lymphocytes % 15.3 %; Mean Corpuscular HGB Conc 32.3 g/dL (30.0-36.0); Mean Corpuscular Hemoglobin 29.8 pg (28.0-34.0); Mean Corpuscular Volume 92.1 fl (81-99); Monocytes # 0.4 10^3/uL (0.2-0.9); Monocytes % 7.4 %; Neutrophils % 75.7 %; Nucleated Red Blood Cells % 0 %; Platelet Count 213 10^3/cmm (130-400); Red Cell Distribution Width 13.5 % (12.1-15.1); White Blood Count 5.6 10^3/uL (4.0-10.0)
[2022-03-25 14:59] LABS: Anion Gap 13.3 (5-19); Blood Urea Nitrogen 26 mg/dL (8-23); Calcium 10.1 mg/dL (8.5-10.5); Carbon Dioxide 27 mmol/L (22-29); Chloride 103 mmol/L (98-107); Glucose 171 mg/dL (65-115); Osmolality Calculated 299 mOsm/kg (285-295); Potassium 3.3 mmol/L (3.5-5.1); Sodium 140 mmol/L (136-145)
--- NOTE | 2022-03-25 15:01 | ECG_ITS ---
[facility] Test Date: 2022-03-25 Pat Name: Sheri Montes Department: Room: Gender: Female Clinical Services Director: : 1935 Requested By: Venu Patel Order Number: [id number] Leena MD: Vijay Ventura M.D. Measurements Intervals [place] Rate: 54 P: 58 VT: 176 QRS: 42 QRSD: 97 T: 67 QT: 468 QTc: 445 Interpretive Statements SINUS BRADYCARDIA Compared to ECG 08/06/2021 04:52:04 Sinus rhythm no longer present T-wave abnormality no longer present Electronically Signed On 03-25-2022 16:25:38 CDT by Vijay Ventura M.D. [id number]
--- NOTE | 2022-03-25 15:22 | PC.PHAR ---
pt is from [facility] [phone]-herber osorio from [facility] states the pt finished cipro 500mg bid on 03/24/22 states the start date was 03/14/22 states they used stock they had before med was filled ext med history shows filled 03/17/22 10d/s-
[2022-03-25 15:38] LABS: Troponin(5th) Baseline 17 ng/L (0-10)
--- NOTE | 2022-03-25 16:21 | ECG_ITS ---
[facility] Test Date: 2022-03-25 Pat Name: Sheri Montes Department: Room: Gender: Female Water Maintenance Supervisor: : 1935 Requested By: Venu Patel Order Number: [id number] Leena MD: Vijay Ventura M.D. Measurements Intervals [place] Rate: 59 P: 65 CA: 199 QRS: 52 QRSD: 82 T: 74 QT: 416 QTc: 413 Interpretive Statements SINUS BRADYCARDIA Compared to ECG 03/25/2022 15:01:02 No significant changes Electronically Signed On 03-25-2022 16:31:47 CDT by Vijay Ventura M.D. [id number]
[2022-03-25] MEDS: sodium chloride 0.9% 500 ML 999 ML IV (16:24)
[2022-03-25 16:27] VITALS: BP 131/109; PULSE 66; O2SAT 97
[2022-03-25 16:45] LABS: ABG PH Result 7.43 (7.35-7.45); Alveolar-Arterial Oxygen Gradi 4.3 mmHg (5-10); Arterial Blood Gas Hematocrit 39.2 % (37-47); Blood Gas Allen Test Pos; Blood Gas Operator Identificat CAK; Blood Gas Sample Site Radial, left; Blood Gas Sample Type Arterial; Carboxyhemoglobin 0.9 %THgb (0.4-20.1); HCO3 ABG 23.9 mmol/L (22-26); Ionized Calcium Level - ABG 1.3 mmol/L (1.1-1.4); Methemoglobin 0.7 % (0.4-1.5); Oxygen Device ROOM AIR; Oxygen Saturation ABG 96.6; PO2 ABG 71.5 mmHg (80.0-100.0); Potassium Level - ABG 3.4 mmol/L (3.5-5.0); Total Hemoglobin 12.8 g/dL (12-16)
[2022-03-25 16:47] LABS: Troponin 5 2HR 16.94 ng/L (0-10); Troponin 5 2HR Delta -0.06 ABS# (0-10)
[2022-03-25 17:16] LABS: Add Urine Microscopic? YES; Bilirubin Urine Neg (Negative); Blood Urine 2+ (Negative); Glucose Urine UA 1+ (Normal); Ketones Urine Negative (Negative); Leukocyte Esterase Urine Trace (Negative); Nitrate Urine Negative (Negative); Protein Urine 1+ (Negative); Squamous Epithelial Cell Urine 0-4 /hpf (0-5); Urine Appearance SL Hazy (CLEAR); Urine Color Yellow (Yellow); Urobilinogen Urine Norm (Negative); pH Urine 6.5 (5-7)
[2022-03-25 17:17] LABS: Bacteria Urine 3+ /hpf
[2022-03-25 17:18] LABS: Add Urine Culture? Yes
[2022-03-25] MEDS: cefTRIAXone 1,000 MG in sodium chloride 0.9% (plus) 50 ML 100 MG IV (17:54)
[2022-03-25 17:58] VITALS: BP 113/50; PULSE 62; O2SAT 93
[2022-03-25 18:49] VITALS: BP 137/63; PULSE 60
== END 2022-03-25 18:51 | disposition home or self-care (01) ==
PROVIDERS: Emergency Provider Emergency Medicine; PCP Family Medicine
DX: N39.0 Urinary tract infection, site not specified (principal); R41.82 Altered mental status, unspecified; R41.0 Disorientation, unspecified; N17.9 Acute kidney failure, unspecified; Z79.82 Long term (current) use of aspirin; I25.10 Atherosclerotic heart disease of native coronary artery without angina pectoris; I12.9 Hypertensive chronic kidney disease with stage 1 through stage 4 chronic kidney disease, or unspecified chronic kidney disease; N18.2 Chronic kidney disease, stage 2 (mild); F03.90 Unspecified dementia, unspecified severity, without behavioral disturbance, psychotic disturbance, mood disturbance, and anxiety; E78.5 Hyperlipidemia, unspecified; Z87.440 Personal history of urinary (tract) infections; Z98.61 Coronary angioplasty status; Z87.891 Personal history of nicotine dependence
CPT/HCPCS: 36600; 70450; 71045; 80048; 80051; 81001; 82330; 82805; 84484; 85025; 87086; 93005; 96365; 99285; J0696; J7040

== ENCOUNTER 2022-04-07 19:12 | Outpatient (CLI) | payer MEDICARE, SELFPAY ==
[2022-04-07 19:46] LABS: Bilirubin Urine Neg (Negative); Blood Urine 2+ (Negative); Glucose Urine UA Norm (Normal); Ketones Urine Negative (Negative); Nitrate Urine Negative (Negative); Protein Urine 1+ (Negative); Specific Gravity, Urine 1.015 (1.005-1.030); Urine Appearance Cloudy (CLEAR); Urine Color Yellow (Yellow); pH Urine 7 (5-7)
[2022-04-07 19:47] LABS: Add Urine Culture? No; Add Urine Microscopic? YES; Amorphous Sediment Urine 2+ /hpf; Bacteria Urine TRACE /hpf; Leukocyte Esterase Urine Trace (Negative); Squamous Epithelial Cell Urine 0-4 /hpf (0-5); Urobilinogen Urine Neg (Negative)
== END 2022-04-07 19:13 | disposition home or self-care (01) ==
PROVIDERS: PCP Family Medicine; Visit Provider Family Medicine
DX: N39.0 Urinary tract infection, site not specified (principal)
CPT/HCPCS: 81001; 87086

== ENCOUNTER 2022-05-02 08:12 | Outpatient (CLI) | payer MEDICARE, SELFPAY ==
[2022-05-02 08:40] LABS: Add Urine Microscopic? YES; Bilirubin Urine Neg (Negative); Blood Urine 2+ (Negative); Glucose Urine UA Norm (Normal); Ketones Urine 1+ (Negative); Leukocyte Esterase Urine 2+ (Negative); Nitrate Urine Positive (Negative); Protein Urine 1+ (Negative); Specific Gravity, Urine 1.025 (1.005-1.030); Urine Appearance Cloudy (CLEAR); Urine Color Yellow (Yellow); Urobilinogen Urine Neg (Negative); pH Urine 5 (5-7)
[2022-05-02 08:47] LABS: Bacteria Urine 3+ /hpf; Calcium Oxalate Crystals Urine 0-4 /hpf
[2022-05-02 08:48] LABS: Add Urine Culture? No; Amorphous Sediment Urine 2+ /hpf
== END 2022-05-02 08:13 | disposition home or self-care (01) ==
PROVIDERS: PCP Family Medicine; Visit Provider Family Medicine
DX: N39.0 Urinary tract infection, site not specified (principal)
CPT/HCPCS: 81001; 87077; 87086; 87186

== ENCOUNTER 2022-05-15 16:01 | Emergency (ER) | payer MEDICARE, SELFPAY ==
[2022-05-15 15:52] VITALS: BP 132/59; PULSE 70; RESP 16; TEMP 36.6; O2SAT 99; BMI 22.3
--- NOTE | 2022-05-15 16:18 | W.ED.GENADLT ---
Documented by User: Stanford Jeffers DO 05/22/22 08:14 HPI - General Adult General: Chief complaint: General Medical Stated complaint: near syncope Time Seen by Provider: 05/15/22 16:11 Source: patient Mode of arrival: EMS History of Present Illness: 86-year-old female resides at a local intermediate. She had a near syncopal episode today while sitting outside on a bench she was actually talking to one of the physicians suddenly felt very tired closed her eyes nearly passed out. She denies any pain or discomfort she denies any dysuria urgency or frequency has not had any vomiting or diarrhea no abdominal pain no chest pain. No recent rash. No reports of any recent medication changes. She has no focal neurologic deficits time she is initially seen today. 1 family member decide who is called after the episode but was not present when it actually happened. She has had similar episodes in the past according to her old records. Onset (ago): minute(s) Relieving factors: none Exacerbating factors: none Associated symptoms: Reports confusion, syncope and weakness; Deny chest pain, cough, diaphoresis, decreased appetite, dyspnea, fevers/chills, headache(s), nausea, rash, palpitations, seizures, short of breath or vomiting Treatments prior to arrival: none Review of Systems Const: Denies: fever(s), chills or diaphoresis ENMT: Denies: throat pain, ear or mastoid pain, nasal discharge or nasal congestion Card: Reports: syncope; Denies: chest pain or palpitations Resp: Denies: dyspnea GI: Denies: abdominal pain, nausea, vomiting or diarrhea : Denies: flank pain, difficulty voiding, dysuria, urinary frequency or urinary urgency Skin/Breast: Denies: rash Neuro: Reports: confusion; Denies: headache(s) PFSH ED PFSH: Medical History CAD (coronary artery disease) Cholelithiasis Chronic kidney disease, stage II (mild) COVID-19 Dementia Establishing care with new doctor, encounter for GERD (gastroesophageal reflux disease) Hyperlipidemia Hypertension Left ureteral calculus Obstructive pyelonephritis Recurrent UTI Urolithiasis Surgical History History of coronary angioplasty History of hysterectomy History of knee surgery History of tubal ligation Family History Father , in his 60's CAD (coronary artery disease) Mother , at age 45 Cancer colon cancer Social History Smoking and tobacco status: former smoker Alcohol intake: never Lives independently: Yes Marital status: / Current occupational status: retired History of recent travel: No Physical Exam Const: GENERAL APPEARANCE: cooperative and comfortable ORIENTATION/CONSCIOUSNESS: Yes awake, Yes oriented to person, Yes oriented to place and Yes oriented to time HENMT: COMMON NORMALS: normocephalic, atraumatic and hearing grossly normal bilaterally HEAD & SCALP: normocephalic and atraumatic Resp: COMMON NORMALS: normal respiratory effort, No retractions, No use of accessory muscles and clear to auscultation bilaterally AUSCULTATION: clear to auscultation bilaterally Cardio: COMMON NORMALS: regular rate, regular rhythm and No murmurs present (Cardio) RATE: regular rate RHYTHM: regular rhythm GI: COMMON NORMALS: Soft to palpation and No hepatosplenomegaly present AUSCULTATION: Yes normoactive bowel sounds PALPATION: Yes Soft to palpation, No Tenderness to palpation present (GI), No Guarding due to palpation present (GI) and Yes No hepatosplenomegaly present Extremity: COMMON NORMALS: normal to inspection, capillary refill normal, no clubbing, cyanosis or edema, no calf tenderness and no pedal edema Neuro: SENSORIUM/ORIENTATION: Yes oriented to person, Yes oriented to place and Yes oriented to time Skin: COMMON NORMALS: no rashes or lesions noted GENERAL SKIN EXAM: no rashes or lesions noted Course Vital Signs: Vital signs: Vital Signs Temperature 97.8 F 05/15/22 15:52 Pulse Rate 70 05/15/22 20:09 Respiratory Rate 16 05/15/22 20:09 Blood Pressure 128/69 05/15/22 20:09 Pulse Oximetry 97 05/15/22 20:09 Oxygen Delivery Me thod 05/15/22 19:01 MDM - General Adult Medical Decision Making Care signed out to Dr. Holguin at change of shift. See final notes for diagnosis and disposition. Patient presents here with near syncopal event likely due to dehydration blood work here is normal she is well-appearing here and stable for discharge she is to follow-up with PCP and return if worsening she understands agrees to plan. Lab Data : 05/15/22 16:48 05/15/22 17:57 Radiology Impressions Chest X-Ray 05/15/22 16:21 IMPRESSION: Sequela of COPD. No acute findings. Laboratory Results WBC 6.8 10^3/uL (4.0-10.0) 05/15/22 16:48 RBC 4.00 10^6/uL (4.1-5.3) L 05/15/22 16:48 Hgb 12.3 g/dL (11.5-15.3) 05/15/22 16:48 Hct 37.7 % (37.0-47.0) 05/15/22 16:48 MCV 94.3 fl (81-99) 05/15/22 16:48 MCH 30.8 pg (28.0-34.0) 05/15/22 16:48 MCHC 32.6 g/dL (30.0-36.0) 05/15/22 16:48 RDW 14.2 % (12.1-15.1) 05/15/22 16:48 Plt Count 253 10^3/cmm (130-400) 05/15/22 16:48 MPV 12.2 fL (7.4-10.4) H 05/15/22 16:48 Neut % (Auto) 75.2 % 05/15/22 16:48 Lymph % (Auto) 11.9 % 05/15/22 16:48 [place] % (Auto) 10.6 % 05/15/22 16:48 Eos % (Auto) 1.3 % 05/15/22 16:48 Baso % (Auto) 0.6 % 05/15/22 16:48 Neut # (Auto) 5.09 10^3/uL (1.8-7.7) 05/15/22 16:48 Lymph # (Auto) 0.8 10^3/uL (0.8-4.8) 05/15/22 16:48 [place] # (Auto) 0.7 10^3/uL (0.2-0.9) 05/15/22 16:48 Eos # (Auto) 0.1 10^3/uL (0.0-0.8) 05/15/22 16:48 Baso # (Auto) 0.0 10^3/uL (0.0-0.1) 05/15/22 16:48 Nucleated RBC % (auto) 0 % 05/15/22 16:48 Nucleated RBCs # 0.0 /100WBC 05/15/22 16:48 Sodium 140 mmol/L (136-145) 05/15/22 17:57 Potassium 3.7 mmol/L (3.5-5.1) 05/15/22 17:57 Chloride 104 mmol/L (98-107) 05/15/22 17:57 Carbon Dioxide 25 mmol/L (22-29) 05/15/22 17:57 Anion Gap 14.7 (5-19) 05/15/22 17:57 BUN 30 mg/dL (8-23) H 05/15/22 17:57 Creatinine 1.2 mg/dL (0.5-0.9) H 05/15/22 17:57 GFR Calculation Not Reportable 05/15/22 17:57 Glucose 68 mg/dL (65-115) 05/15/22 17:57 Calculated Osmolality 294 mOsm/kg (285-295) 05/15/22 17:57 Calcium 10.3 mg/dL (8.5-10.5) 05/15/22 17:57 Total Bilirubin 0.9 mg/dL (0.15-1.2) 05/15/22 17:57 AST 18 U/L (0-32) 05/15/22 17:57 ALT 10 U/L (0-33) 05/15/22 17:57 Alkaline Phosphatase 107 U/L (35-105) H 05/15/22 17:57 Troponin T Baseline 13 ng/L (0-10) H 05/15/22 17:57 Troponin T 120 Minute 11.60 ng/L (0-10) H 05/15/22 18:57 Delta Troponin T -1.40 ABS# (0-10) L 05/15/22 18:57 Total Protein 6.9 g/dL (6.6-8.7) 05/15/22 17:57 Albumin 3.8 g/dL (3.5-5.2) 05/15/22 17:57 Globulin 3.1 g/dL (1.3-4.6) 05/15/22 17:57 Discharge Plan Discharge Patient Disposition: Home Clinical Impression: Near syncope Condition: Stable Prescriptions: No Action aspirin 81 mg Tablet,Delayed Release (Dr/Ec) 81 mg PO DAILY metoprolol succinate 50 mg tablet extended release 24 hr 50 mg PO DAILY amlodipine 5 mg tablet 5 mg PO DAILY rosuvastatin 40 mg tablet 40 mg PO DAILY Refresh Relieva 0.5-0.9 % Drops 1 drp ophthalmic (eye) DAILY@16 Systane Complete 0.6 % Drops 1 drp ophthalmic (eye) DAILY Discharge Orders: Discharge ED (Routine); Ordered 05/15/22 Ordered By: Ashutosh Holguin Referrals: Peter Tirado DO [Primary Care Provider] - 1-3 days Discharge Diet: Advance as tolerated Discharge Activity: Resume usual activity Patient Instructions: Near Syncope (ED) Coding Level of Care Code ED Bearing Maker for Chg Fwd Documented by User: Ashutosh Holguin MD 05/15/22 20:01 HPI - General Adult General: Chief complaint: General Medical Stated complaint: near syncope Time Seen by Provider: 05/15/22 16:11 [facility] ED PFSH: Medical History CAD (coronary artery disease) Cholelithiasis Chronic kidney disease, stage II (mild) COVID-19 Dementia Establishing care with new doctor, encounter for GERD (gastroesophageal reflux disease) Hyperlipidemia Hypertension Left ureteral calculus Obstructive pyelonephritis Recurrent UTI Urolithiasis Surgical History History of coronary angioplasty History of hysterectomy History of knee surgery History of tubal ligation Family History Father , in his 60's CAD (coronary artery disease) Mother , at age 45 Cancer colon cancer Social History Smoking and tobacco status: former smoker Alcohol intake: never Lives independently: Yes Marital status: / Current occupational status: retired History of recent travel: No Course Vital Signs: Vital signs: Vital Signs Temperature 97.8 F 05/15/22 15:52 Pulse Rate 70 05/15/22 20:09 Respiratory Rate 16 05/15/22 20:09 Blood Pressure 128/69 05/15/22 20:09 Pulse Oximetry 97 05/15/22 20:09 Oxygen Delivery Me thod 05/15/22 19:01 MDM - General Adult Medical Decision Making Patient presents here with near syncopal event likely due to dehydration blood work here is normal she is well-appearing here and stable for discharge she is to follow-up with PCP and return if worsening she understands agrees to plan. Lab Data : 05/15/22 16:48 05/15/22 17:57 Radiology Impressions Chest X-Ray 05/15/22 16:21 IMPRESSION: Sequela of COPD. No acute findings. Laboratory Results WBC 6.8 10^3/uL (4.0-10.0) 05/15/22 16:48 RBC 4.00 10^6/uL (4.1-5.3) L 05/15/22 16:48 Hgb 12.3 g/dL (11.5-15.3) 05/15/22 16:48 Hct 37.7 % (37.0-47.0) 05/15/22 16:48 MCV 94.3 fl (81-99) 05/15/22 16:48 MCH 30.8 pg (28.0-34.0) 05/15/22 16:48 MCHC 32.6 g/dL (30.0-36.0) 05/15/22 16:48 RDW 14.2 % (12.1-15.1) 05/15/22 16:48 Plt Count 253 10^3/cmm (130-400) 05/15/22 16:48 MPV 12.2 fL (7.4-10.4) H 05/15/22 16:48 Neut % (Auto) 75.2 % 05/15/22 16:48 Lymph % (Auto) 11.9 % 05/15/22 16:48 [place] % (Auto) 10.6 % 05/15/22 16:48 Eos % (Auto) 1.3 % 05/15/22 16:48 Baso % (Auto) 0.6 % 05/15/22 16:48 Neut # (Auto) 5.09 10^3/uL (1.8-7.7) 05/15/22 16:48 Lymph # (Auto) 0.8 10^3/uL (0.8-4.8) 05/15/22 16:48 [place] # (Auto) 0.7 10^3/uL (0.2-0.9) 05/15/22 16:48 Eos # (Auto) 0.1 10^3/uL (0.0-0.8) 05/15/22 16:48 Baso # (Auto) 0.0 10^3/uL (0.0-0.1) 05/15/22 16:48 Nucleated RBC % (auto) 0 % 05/15/22 16:48 Nucleated RBCs # 0.0 /100WBC 05/15/22 16:48 Sodium 140 mmol/L (136-145) 05/15/22 17:57 Potassium 3.7 mmol/L (3.5-5.1) 05/15/22 17:57 Chloride 104 mmol/L (98-107) 05/15/22 17:57 Carbon Dioxide 25 mmol/L (22-29) 05/15/22 17:57 Anion Gap 14.7 (5-19) 05/15/22 17:57 BUN 30 mg/dL (8-23) H 05/15/22 17:57 Creatinine 1.2 mg/dL (0.5-0.9) H 05/15/22 17:57 GFR Calculation Not Reportable 05/15/22 17:57 Glucose 68 mg/dL (65-115) 05/15/22 17:57 Calculated Osmolality 294 mOsm/kg (285-295) 05/15/22 17:57 Calcium 10.3 mg/dL (8.5-10.5) 05/15/22 17:57 Total Bilirubin 0.9 mg/dL (0.15-1.2) 05/15/22 17:57 AST 18 U/L (0-32) 05/15/22 17:57 ALT 10 U/L (0-33) 05/15/22 17:57 Alkaline Phosphatase 107 U/L (35-105) H 05/15/22 17:57 Troponin T Baseline 13 ng/L (0-10) H 05/15/22 17:57 Troponin T 120 Minute 11.60 ng/L (0-10) H 05/15/22 18:57 Delta Troponin T -1.40 ABS# (0-10) L 05/15/22 18:57 Total Protein 6.9 g/dL (6.6-8.7) 05/15/22 17:57 Albumin 3.8 g/dL (3.5-5.2) 05/15/22 17:57 Globulin 3.1 g/dL (1.3-4.6) 05/15/22 17:57 Discharge Plan Discharge Patient Disposition: Home Clinical Impression: Near syncope Condition: Stable Prescriptions: No Action aspirin 81 mg Tablet,Delayed Release (Dr/Ec) 81 mg PO DAILY metoprolol succinate 50 mg tablet extended release 24 hr 50 mg PO DAILY amlodipine 5 mg tablet 5 mg PO DAILY rosuvastatin 40 mg tablet 40 mg PO DAILY Refresh Relieva 0.5-0.9 % Drops 1 drp ophthalmic (eye) DAILY@16 Systane Complete 0.6 % Drops 1 drp ophthalmic (eye) DAILY Discharge Orders: Discharge ED (Routine); Ordered 05/15/22 Ordered By: Ashutosh Holguin Referrals: Peter Tirado DO [Primary Care Provider] - 1-3 days Discharge Diet: Advance as tolerated Discharge Activity: Resume usual activity Patient Instructions: Near Syncope (ED) Coding Level of Care Code ED Bearing Maker for Caroline Segura
--- NOTE | 2022-05-15 16:21 | ECG_ITS ---
[facility] Test Date: 2022-05-15 Pat Name: Sheri Montes Department: Room: Gender: Female Brand Designer: : [id number] Requested By: Stanford Chaparro Order Number: [id number] Leena MD: Vijay Ventura M.D. Measurements Intervals [place] Rate: 72 P: 67 [place]: 184 QRS: 22 QRSD: 72 T: 59 QT: 399 QTc: 437 Interpretive Statements SINUS RHYTHM Compared to ECG 03/25/2022 16:21:47 Sinus bradycardia no longer present Electronically Signed On 05-15-2022 17:29:01 CDT by Vijay Ventura M.D. [email or web address] sm[facility] countyMarinus Pharmaceuticalseast ohio regional hospitalTagkast/store/[id number]
--- NOTE | 2022-05-15 16:21 | XRR_ITS ---
PROCEDURE INFORMATION: Exam: XR Chest Exam date and time: 05/15/2022 4:31 PM Age: 86 years old Clinical indication: Cough and dyspnea; Additional info: Dyspnea/cough TECHNIQUE: Imaging protocol: Radiologic exam of the chest. Views: 1 view. COMPARISON: CR XR chest 1V portable [id number] 03/25/2022 2:49 PM FINDINGS: Lungs: Hyperinflated lungs. No consolidation. Pleural spaces: No pleural effusion. No pneumothorax. Heart/Mediastinum: No cardiomegaly. Bones/joints: Visualized osseous structures are intact. XR/XR chest 1V portable [id number] IMPRESSION: Sequela of COPD. No acute findings.
[2022-05-15 17:00] VITALS: BP 132/59; PULSE 75; O2SAT 98
[2022-05-15 17:41] LABS: Basophils % 0.6 %; Eosinophils # 0.1 10^3/uL (0.0-0.8); Eosinophils % 1.3 %; Hematocrit 37.7 % (37.0-47.0); Hemoglobin 12.3 g/dL (11.5-15.3); Lymphocytes # 0.8 10^3/uL (0.8-4.8); Lymphocytes % 11.9 %; Mean Corpuscular HGB Conc 32.6 g/dL (30.0-36.0); Mean Corpuscular Hemoglobin 30.8 pg (28.0-34.0); Mean Corpuscular Volume 94.3 fl (81-99); Mean Platelet Volume 12.2 fL (7.4-10.4); Monocytes # 0.7 10^3/uL (0.2-0.9); Monocytes % 10.6 %; Neutrophils # 5.09 10^3/uL (1.8-7.7); Neutrophils % 75.2 %; Nucleated Red Blood Cells % 0 %; Platelet Count 253 10^3/cmm (130-400); Red Cell Distribution Width 14.2 % (12.1-15.1); White Blood Count 6.8 10^3/uL (4.0-10.0)
[2022-05-15 18:00] LABS: Slide Review Slide Review Perform
[2022-05-15 18:40] LABS: Troponin(5th) Baseline 13 ng/L (0-10)
[2022-05-15 18:51] LABS: Alanine Aminotransferase 10 U/L (0-33); Albumin Level 3.8 g/dL (3.5-5.2); Alkaline Phosphatase 107 U/L (35-105); Anion Gap 14.7 (5-19); Aspartate Amino Transferase 18 U/L (0-32); Blood Urea Nitrogen 30 mg/dL (8-23); Calcium 10.3 mg/dL (8.5-10.5); Carbon Dioxide 25 mmol/L (22-29); Chloride 104 mmol/L (98-107); Globulin 3.1 g/dL (1.3-4.6); Glucose 68 mg/dL (65-115); Osmolality Calculated 294 mOsm/kg (285-295); Potassium 3.7 mmol/L (3.5-5.1); Sodium 140 mmol/L (136-145); Total Bilirubin 0.9 mg/dL (0.15-1.2); Total Protein 6.9 g/dL (6.6-8.7)
[2022-05-15 19:01] VITALS: BP 132/59; PULSE 74; RESP 16; O2SAT 97
--- NOTE | 2022-05-15 19:03 | PC.NURSE ---
Vitals printed and placed in paper chart to be scanned
[2022-05-15] MEDS: sodium chloride 0.9% 1,000 ML 999 ML IV (19:06)
[2022-05-15 20:09] VITALS: BP 128/69; PULSE 70; RESP 16; O2SAT 97
== END 2022-05-15 20:11 | disposition home or self-care (01) ==
PROVIDERS: Family Medicine; Emergency Provider Emergency Medicine; PCP Family Medicine
DX: R55 Syncope and collapse (principal); Z79.82 Long term (current) use of aspirin; Z87.891 Personal history of nicotine dependence; I25.10 Atherosclerotic heart disease of native coronary artery without angina pectoris; I12.9 Hypertensive chronic kidney disease with stage 1 through stage 4 chronic kidney disease, or unspecified chronic kidney disease; N18.2 Chronic kidney disease, stage 2 (mild); F03.90 Unspecified dementia, unspecified severity, without behavioral disturbance, psychotic disturbance, mood disturbance, and anxiety; E78.5 Hyperlipidemia, unspecified; Z98.61 Coronary angioplasty status
CPT/HCPCS: 36415; 71045; 80053; 84484; 85025; 93005; 96360; 99285; J7030

== ENCOUNTER 2022-06-06 06:08 | Inpatient (IN) | payer MEDICARE, SELFPAY ==
[2022-06-06] VITALS (18 sets, daily range): BP systolic 112–192; BP diastolic 62–95; PULSE 56–80; RESP 15–22; TEMP 36.2–38.8; O2SAT 92–100; BMI 21.7
--- NOTE | 2022-06-06 | SCC_ITS ---
Procedure done: Open reduction internal fixation left subcapital hip fracture utilizing cannulated screws 134 seconds of fluoroscopic guidance, for a cumulative dose of 16.0 mGy, was provided to Dr. Zuniga by the radiology department. C-arm images of the LEFT hip were saved for the patient's permanent record. [facility] HOSPITALMax
--- NOTE | 2022-06-06 06:14 | ED_ITS ---
HPI - Fall General: Chief Complaint: Wound/Laceration Stated Complaint: LAC ON HAND Time Seen by Provider: 06/06/22 06:14 Source: patient and EMS Mode of arrival: EMS History of Present Illness: 86-year-old female resident of intermediate fell at the intermediate when she got up landed on an outstretched right hand. Patient states she fell in the bathroom. She has laceration between the third and fourth fingers extending into the palm in the interdigital space and along the third finger on the medial side. No active bleeding she is able to flex and extend. Patient has mild dementia. She is also complaining some left hip pain no reports of striking her head there is no loss consciousness. MD complaint: fall Onset (ago): minute(s) Fall from: out of bed Fall witnessed: no Place fall occurred: intermediate/SNF Loss of consciousness: None Context: tripped/slipped Location of injury - extremities: Left: thigh (hip) and Right: hand Severity: mild Quality: sharp Review of Systems General: Reports: ROS unobtainable due to mental status (Review of systems generally unreliable due to patient's dementia) PFSH ED PFSH: Medical History CAD (coronary artery disease) Cholelithiasis Chronic kidney disease, stage II (mild) COVID-19 Dementia Establishing care with new doctor, encounter for GERD (gastroesophageal reflux disease) Hyperlipidemia Hypertension Left ureteral calculus Obstructive pyelonephritis Recurrent UTI Urolithiasis Surgical History History of coronary angioplasty History of hysterectomy History of knee surgery History of tubal ligation Family History Father , in his 60's CAD (coronary artery disease) Mother , at age 45 Cancer colon cancer Social History Smoking and tobacco status: former smoker Alcohol intake: never Lives independently: Yes Marital status: / Current occupational status: retired History of recent travel: No Physical Exam Const: COMMON NORMALS: no acute distress GENERAL APPEARANCE: cooperative and comfortable ORIENTATION/CONSCIOUSNESS: Yes awake HENMT: COMMON NORMALS: normocephalic and atraumatic HEAD & SCALP: normocephalic and atraumatic Eye: COMMON NORMALS: Equal, round and reactive pupils present, EOMs intact bilaterally, conjunctivae normal and no scleral icterus CONJUNCTIVA: Yes conjunctivae normal PUPIL: Yes Equal, round and reactive pupils present Neck/C-Spine: COMMON NORMALS: full ROM, no lymphadenopathy, supple and no JVD Resp: COMMON NORMALS: normal respiratory effort, No retractions, No use of acc essory muscles and clear to auscultation bilaterally AUSCULTATION: clear to auscultation bilaterally Cardio: COMMON NORMALS: no JVD, regular rate, regular rhythm and No murmurs present (Cardio) RATE: regular rate RHYTHM: regular rhythm GI: COMMON NORMALS: Soft to palpation and No hepatosplenomegaly present AUSCULTATION: Yes normoactive bowel sounds PALPATION: Yes Soft to palpation, No Tenderness to palpation present (GI), No Guarding due to palpation present (GI) and Yes No hepatosplenomegaly present Extremity: OTHER: Laceration to right palm extending through the third and fourth finger of the right hand no active bleeding no exposure tendons patient able to flex and extend without difficulty sensation intact neurovascularly intact distal to the laceration Skin: COMMON NORMALS: no rashes or lesions noted GENERAL SKIN EXAM: no rashes or lesions noted Procedures Laceration Laceration 1: Site: hand Side (If applicable): right Size (cm): 10 Description: linear Depth: simple, single layer Pre-repair: wound explored and irrigated extensively Skin layer closed with: nylon Size (cm): 4-0 Technique: simple, interrupted (Single interrupted suture at center of wound.) and running (Running locking suture) Procedural Sedation Indication: laceration repair Preparation: photo printer applied, pulse oximeter, supplemental O2 applied, suction/airway equipment at bedside and IV secured Midazolam: IV Midazolam dose (mg): 2 Course Vital Signs: Vital signs: Vital Signs Temperature 97.1 F L 06/06/22 06:10 Pulse Rate 57 L 06/06/22 07:00 Respiratory Rate 20 H 06/06/22 07:00 Blood Pressure 171/88 06/06/22 07:00 Pulse Oximetry 97 06/06/22 06:10 Oxygen Delivery In thod 06/06/22 06:45 MDM - Fall Medical Decision Making Laceration of the hand repaired under conscious sedation patient tolerated well. X-ray of the left hip shows impacted subcapital hip fracture. Patient is also tolerating that fairly well she flexed that her hip several times while on the exam table any room. Discussed with Ortho on-call and with hospitalist will admit keep patient NPO. Medical Records I reviewed the patient's medical records. Lab Data I reviewed the patient's lab results. Radiology Impressions Hand X-Ray 06/06/22 06:17 IMPRESSION: 1. No fracture or dislocation. 2. Soft tissue swelling in the 3rd digit with possible subcutaneous emphysema. 3. Osteoarthritic changes. Hip/Pelvis X-Ray 06/06/22 06:28 IMPRESSION: Left femoral subcapital fracture. Discharge Plan Discharge Patient Disposition: Admitted As Inpatient Clinical Impression: Subcapital fracture of left hip, Fall, Parkinson's disease dementia, Laceration of hand Condition: Stable Coding Level of Care Code ED Risk Investigator for Caroline Segura Exam Comprehensive
--- NOTE | 2022-06-06 06:17 | XRR_ITS ---
PROCEDURE INFORMATION: Exam: XR Right Hand Exam date and time: 06/06/2022 7:38 AM Age: 86 years old Clinical indication: Injury or trauma; Fall; Laceration; Hand; Right; Additional info: Fall/trauma TECHNIQUE: Imaging protocol: Radiologic exam of the Right hand. Views: 3 or more views. COMPARISON: No relevant prior studies available. FINDINGS: Bones/joints: No fracture or dislocation. Joint space narrowing with sclerosis at the STT joint and 1st tarsometatarsal joint. Joint space narrowing with osteophyte formation in the interphalangeal joints, most predominantly distally. Soft tissues: Soft tissue swelling in the 3rd digit with possible subcutaneous emphysema. XR/XR hand RT min 3V* [id number] IMPRESSION: 1. No fracture or dislocation. 2. Soft tissue swelling in the 3rd digit with possible subcutaneous emphysema. 3. Osteoarthritic changes.
--- NOTE | 2022-06-06 06:28 | XRR_ITS ---
PROCEDURE INFORMATION: Exam: XR Left Hip Exam date and time: 06/06/2022 7:40 AM Age: 86 years old Clinical indication: Injury or trauma; Fall; Blunt trauma (contusions or hematomas); Left; Hip; Additional info: Pain TECHNIQUE: Imaging protocol: Radiologic exam of the Left hip. Views: 2 or 3 views hip with pelvis when performed. COMPARISON: CT hip LT wo con* [id number] 08/06/2021 12:27 PM FINDINGS: Bones/joints: Fracture in the subcapital region of the proximal left femur. Femoral head maintains normal alignment in the acetabulum. Soft tissues: Unremarkable. XR/XR hip LT 2-3V wo/w pel* [id number] IMPRESSION: Left femoral subcapital fracture.
--- NOTE | 2022-06-06 06:30 | PC.NURSE ---
While starting patient's I.V., the patient started groaning and states that she is having left groin/hip pain. Pt. states that she has had knee surgeries in the past and she is uncertain if this is what is causing the pain , pt. is pointing to her hip as she describes the pain.
[2022-06-06] MEDS: tetanus-diphtheria tox (adult) 0.5 mL SDV IM (06:35)
[2022-06-06] MEDS: midazolam 1 mg/mL INJ 2 mL 2 MG IVP (06:45)
--- NOTE | 2022-06-06 07:09 | XRR_ITS ---
PROCEDURE INFORMATION: Exam: XR Chest Exam date and time: 06/06/2022 8:16 AM Age: 86 years old Clinical indication: Injury or trauma; Fall; Cough and dyspnea and fever; Blunt trauma (contusions or hematomas); Injury details: PT unable to provide HX. Other than her name. PT fell in bathroom, laceration to the RT hand and pain in lt hip. ; Additional info: Dyspnea/cough TECHNIQUE: Imaging protocol: Radiologic exam of the chest. Views: 1 view. COMPARISON: CR XR chest 1V portable [id number] 05/15/2022 4:31 PM FINDINGS: Lungs: Unremarkable. No consolidation. Pleural spaces: Unremarkable. No pleural effusion. No pneumothorax. Heart/Mediastinum: Unremarkable. No cardiomegaly. Bones/joints: Unremarkable. XR/XR chest 1V portable [id number] IMPRESSION: No acute findings.
[2022-06-06] MEDS: neomycin-poly-bacitracin oint 28 gm 1 APPLIC TOPICAL (07:17)
--- NOTE | 2022-06-06 07:18 | PC.NURSE ---
pt resting in bed. laceration to right hand is sutured. triple antibiotic ointment, telfa, and gauze applied over laceration.
--- NOTE | 2022-06-06 07:43 | CTR_ITS ---
PROCEDURE INFORMATION: Exam: CT Cervical Spine Without Contrast Exam date and time: 06/06/2022 8:06 AM Age: 86 years old Clinical indication: Injury or trauma; Fall; Blunt trauma TECHNIQUE: Imaging protocol: Computed tomography of the cervical spine without contrast. Radiation optimization: All CT scans at this facility use at least one of these dose optimization techniques: automated exposure control; mA and/or kV adjustment per patient size (includes targeted exams where dose is matched to clinical indication); or iterative reconstruction. COMPARISON: CT cervical spin wo con* [id number] 08/06/2021 12:15 AM RADIATION DOSE METRICS: Total DLP (mGy-cm): 168.6 FINDINGS: Bones/joints: The cervical spine demonstrates a mildly exaggerated lordotic curvature. No spondylolisthesis. The vertebral bodies maintain normal height. No fracture identified. Multilevel loss of intervertebral disc height with endplate degenerative changes. Multilevel facet arthropathy and fusion. Degenerative changes in the temporomandibular joints. Lungs: Biapical pulmonary scarring noted. Soft tissues: No prevertebral soft tissue swelling identified. Multiple nodules in the thyroid noted. CT/CT cervical spin wo con* [id number] IMPRESSION: No acute fracture or traumatic malalignment identified within the cervical spine.
--- NOTE | 2022-06-06 07:43 | CTR_ITS ---
PROCEDURE INFORMATION: Exam: CT Head Without Contrast Exam date and time: 06/06/2022 8:06 AM Age: 86 years old Clinical indication: Injury or trauma; Fall; Blunt trauma (contusions or hematomas) TECHNIQUE: Imaging protocol: Computed tomography of the head without contrast. Radiation optimization: All CT scans at this facility use at least one of these dose optimization techniques: automated exposure control; mA and/or kV adjustment per patient size (includes targeted exams where dose is matched to clinical indication); or iterative reconstruction. COMPARISON: CT head wo con* [id number] 03/25/2022 2:40 PM RADIATION DOSE METRICS: Total DLP (mGy-cm): 1118.09 FINDINGS: Brain: No acute hemorrhage identified. No large territorial areas of hypoattenuation concerning for ischemic infarct identified. No intracranial mass effect. Diffuse cerebral atrophy, consistent with patient's age. Cerebral ventricles: The ventricles are within normal limits. Paranasal sinuses: The visualized sinuses are unremarkable. Mastoid air cells: The visualized mastoid air cells are well aerated. Bones/joints: The osseous structures are intact. Soft tissues: Unremarkable. CT/CT head wo con* [id number] IMPRESSION: No acute intracranial abnormality.
--- NOTE | 2022-06-06 08:01 | ECG_ITS ---
[facility] Test Date: 2022-06-06 Pat Name: Sheri Montes Department: Room: Gender: Female Plate Fitter: : 1935 Requested By: Stanford Chaparro Order Number: [id number] Leena MD: Caity Mccarthy M.D. Measurements Intervals [place] Rate: 52 P: 64 [place]: 189 QRS: 27 QRSD: 75 T: 64 QT: 452 QTc: 424 Interpretive Statements SINUS BRADYCARDIA Compared to ECG 05/15/2022 17:24:41 Sinus rhythm no longer present Electronically Signed On 06-07-2022 14:06:10 WIRE STRAIGHTENER by Caity Mccarthy M.D. [id number]
[2022-06-06 08:04] LABS: Basophils % 0.5 %; Eosinophils # 0.1 10^3/uL (0.0-0.8); Eosinophils % 1.2 %; Hematocrit 44.3 % (37.0-47.0); Hemoglobin 14.2 g/dL (11.5-15.3); Lymphocytes # 0.8 10^3/uL (0.8-4.8); Lymphocytes % 12.1 %; Mean Corpuscular HGB Conc 32.1 g/dL (30.0-36.0); Mean Corpuscular Hemoglobin 29.8 pg (28.0-34.0); Mean Corpuscular Volume 93.1 fl (81-99); Mean Platelet Volume 9.6 fL (7.4-10.4); Monocytes # 0.4 10^3/uL (0.2-0.9); Monocytes % 5.6 %; Neutrophils # 5.15 10^3/uL (1.8-7.7); Nucleated Red Blood Cells % 0 %; Platelet Count 230 10^3/cmm (130-400); Red Blood Count 4.76 10^6/uL (4.1-5.3); Red Cell Distribution Width 13.5 % (12.1-15.1); White Blood Count 6.4 10^3/uL (4.0-10.0)
[2022-06-06 08:14] LABS: INR 1.07 (0.8-1.2)
--- NOTE | 2022-06-06 08:17 | PC.NURSE ---
pt back to room from CT. pt resting in bed, drowsy. respirations even and unlabored. 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
--- NOTE | 2022-06-06 08:18 | CTR_ITS ---
PROCEDURE INFORMATION: Exam: CT Left Lower Extremity Without Contrast, Hip Exam date and time: 06/06/2022 8:36 AM Age: 86 years old Clinical indication: Injury or trauma; Fall; Fracture, traumatic; Closed fracture; Hip; Left; Additional info: Further characterization of hip fracture TECHNIQUE: Imaging protocol: CT of the Left lower extremity without contrast was performed. Exam focused on the hip. Radiation optimization: All CT scans at this facility use at least one of these dose optimization techniques: automated exposure control; mA and/or kV adjustment per patient size (includes targeted exams where dose is matched to clinical indication); or iterative reconstruction. COMPARISON: CT hip LT wo con* [id number] 08/06/2021 12:27 PM RADIATION DOSE METRICS: Total DLP (mGy-cm): 652.31 FINDINGS: Bones/joints: There is a subcapital femoral neck fracture with minimal displacement. It is slightly impacted. Moderate posterior femoroacetabular joint space narrowing. No pubic ramus fracture with sequelae of an old injury involving the inferior pubic ramus. Soft tissues: Normal. Bowel: Extensive diverticulosis. Urinary bladder: Martel catheter with air in the urinary bladder. CT/CT hip LT wo con* [id number] IMPRESSION: Subcapital femoral neck fracture.
[2022-06-06 08:20] LABS: Add Urine Microscopic? YES; Bilirubin Urine Neg (Negative); Blood Urine 2+ (Negative); Glucose Urine UA Norm (Normal); Ketones Urine Negative (Negative); Leukocyte Esterase Urine Negative (Negative); Nitrate Urine Negative (Negative); Protein Urine Trace (Negative); Urine Appearance SL Hazy (CLEAR); Urine Color Straw (Yellow); Urobilinogen Urine Norm (Negative); pH Urine 7 (5-7)
[2022-06-06 08:21] LABS: Add Urine Culture? No; Bacteria Urine 1+ /hpf; Coarse Granular Casts Urine 0-4 /lpf; Hyaline Casts Urine 0-4 /lpf; Mucus Urine TRACE /hpf; RBC Urine 0-4 /hpf (0-2); Squamous Epithelial Cell Urine 0-4 /hpf (0-5); WBC Urine 0-4 /hpf (0-5)
[2022-06-06 08:21] LABS: Alanine Aminotransferase 13 U/L (0-33); Alkaline Phosphatase 104 U/L (35-105); Anion Gap 14.6 (5-19); Aspartate Amino Transferase 20 U/L (0-32); Blood Urea Nitrogen 24 mg/dL (8-23); Calcium 9.8 mg/dL (8.5-10.5); Carbon Dioxide 22 mmol/L (22-29); Chloride 108 mmol/L (98-107); Globulin 3.2 g/dL (1.3-4.6); Glucose 98 mg/dL (65-115); Osmolality Calculated 296 mOsm/kg (285-295); Potassium 3.6 mmol/L (3.5-5.1); Sodium 141 mmol/L (136-145); Total Bilirubin 0.8 mg/dL (0.15-1.2); Total Protein 7.2 g/dL (6.6-8.7)
--- NOTE | 2022-06-06 09:33 | PC.NURSE ---
pt resting in bed on left side. pt calling out for help. entered room, pt requesting warm blankets. warm blankets brought to pt. no other needs voiced at this time
--- NOTE | 2022-06-06 09:55 | PC.NURSE ---
pt oriented to person, place, and time
--- NOTE | 2022-06-06 09:58 | PM.HP ---
Providers/Chief Complaint Admitting Physician: Michael Syed MD Primary Care Provider: Peter Tirado DO Chief Complaint: LAC ON HAND History of Present Illness Sheri Montes is a 86 year old female resident of [facility] presenting with history of fall in the bathroom. She sustained a laceration to her right hand, and a left hip fracture. From my understanding she has some mild dementia, which makes history somewhat difficult. She denies any current headache, nausea, or pain other than her left hip area. In the emergency department laceration of her right hand was sewed, and dressed. I discussed with the physician and he did not believe any tendon involvement was noted and she had full range of motion. She denies any problems with anesthesia with previous surgeries. She reports no recent chest discomfort. Of note she was seen for a near syncopal episode May 15 in the emergency department thought to be secondary to dehydration. In discussion with the half-way, they report she has not fallen lately. She does not have dizzy episodes. She was in the bathroom when the fall occurred, and she had just had a bowel movement. Review of Systems General: Reports: 10 or more systems reviewed and unremarkable except in HPI and below Const: Denies: fever(s) or chills Eyes: Denies: change in vision ENMT: Denies: throat pain Card: Denies: chest pain Resp: Denies: dyspnea GI: Denies: abdominal pain, hematochezia or melena : Denies: flank pain Musc: Reports: extremity pain; Denies: neck pain Skin/Breast: Denies: rash Neuro: Denies: headache(s) Psych: Reports: memory loss Endo: Denies: polyuria Patrick/Lymph: Denies: easy bruising All/Imm: Denies: urticaria Medications/Allergies Home Medications Medication Instructions Recorded Confirmed Last Taken Type amlodipine 5 mg tablet 5 mg PO DAILY 12/24/19 06/06/22 05/15/22 History metoprolol succinate 50 mg 50 mg PO DAILY 12/24/19 06/06/22 05/15/22 History tablet,extended release 24 hr rosuvastatin 40 mg tablet 40 mg PO DAILY 12/24/19 06/06/22 05/15/22 History aspirin 81 mg tablet,delayed 81 mg PO DAILY 04/30/20 06/06/22 05/15/22 History release carboxymethylcellulose 0.5 1 drp ophthalmic (eye) DAILY@16 03/25/22 06/06/22 05/15/22 History %-glycerin 0.9 % eye drops (Refresh Relieva) propylene glycol 0.6 % eye drops 1 drp ophthalmic (eye) DAILY 03/25/22 06/06/22 05/15/22 History (Systane Complete) Allergies Allergy/AdvReac Type Severity Reaction Status Date / Time alendronate sodium Allergy Unknown Verified 06/06/22 07:41 [From Fosamax] PFSH Acute PFSH: Medical History (Updated 06/06/22 @ 10:02 by Michael Syed MD) CAD (coronary artery disease) Cholelithiasis Chronic kidney disease, stage II (mild) COVID-19 Dementia Establishing care with new doctor, encounter for GERD (gastroesophageal reflux disease) History of breast cancer Hyperlipidemia Hypertension Left ureteral calculus Obstructive pyelonephritis Recurrent UTI Urolithiasis Surgical History (Updated 06/06/22 @ 10:02 by Michael Syed MD) History of breast surgery History of coronary angioplasty History of hernia repair History of hysterectomy History of knee surgery History of tubal ligation Family History Father , in his 60's CAD (coronary artery disease) Mother , at age 45 Cancer colon cancer Social History Smoking and tobacco status: former smoker Alcohol intake: never Lives independently: Yes Marital status: / Current occupational status: retired History of recent travel: No Vitals/I&O/Wt Last Vital Signs Temp 97.1 F L 06/06/22 06:10 Pulse 56 L 06/06/22 08:00 Resp 17 06/06/22 08:00 BP 154/71 06/06/22 08:00 Pulse Ox 97 06/06/22 08:00 O2 Del Method 06/06/22 06:45 Weight last 48 hrs Weight 52.163 kg Physical Exam Narrative: General exam is a conversant female, able to give a fair history, who admits she has some memory difficulty. HEENT: Atraumatic and normocephalic. Pupils equally round. Oropharynx clear. Neck is supple no lymphadenopathy or thyromegaly Cardiovascular regular rate and rhythm, 2/6 systolic murmur Lungs clear no wheezing or crackles Abdomen is soft nontender with positive bowel sounds Extremities no cyanosis clubbing or edema, cap refill brisk. Dressing present right hand, distal cap refill intact Skin no rash Neuro no focal deficits. Urinary Catheter Management: Martel: Cath Placed During This Visit: yes Urinary Catheter Date of Insertion: 06/06/22 Urinary Catheter Time of Insertion: 08:01 Data : 06/06/22 07:52 06/06/22 07:52 Other Labs: LFTs are normal Urinalysis 0-4 reds and 0-[address] cervical spine and head negative Chest x-ray no infiltrate CT hip, left side demonstrates subcapital femoral neck fracture X-ray of hand is negative A&P Assessment and plan (1) Subcapital fracture of left hip: N.p.o. Orthopedic surgery consultation Bedrest Pain control SCDs for DVT prophylaxis, hold anticoagulation as surgery expected today. (2) Laceration of hand: Repair done in emergency department (3) CAD (coronary artery disease): Continue aspirin, statin, beta-naomy Telemetry (4) Parkinson's disease dementia: Check TSH Dementia appears mild from my interview (5) Fall: Possibly vasovagal Monitor on telemetry Check magnesium level, TSH Plan Other medical problems as listed in past medical history Allow natural per family, CODE STATUS designation at nursing facility, patient SCDs for DVT prophylaxis Hold subcutaneous anticoagulation currently as surgery expected today No direct contraindications to surgery. Attestations Medical Necessity Statement*: Will need greater than 2 midnight stay for evaluation and treatment of hip fracture Coding Level of Care Code Acute Manager Utilities for [facility] Fwd Diagnoses Subcapital fracture of left hip S72.012A Laceration of hand S61.419A CAD (coronary artery disease) I25.10 Parkinson's disease dementia G20; F02.80 Fall W19.XXXA
--- NOTE | 2022-06-06 10:09 | PC.NURSE ---
pts Amy maier, called for update. Amy is requesting an update when pt is admitted.
--- NOTE | 2022-06-06 10:19 | PC.NURSE ---
report called to DIPESH Banks on Med Surg
[2022-06-06] MEDS: sodium chloride 0.9% 1,000 ML 75 ML IV (10:33)
[2022-06-06] MEDS: fentaNYL 50 mcg/mL INJ 2mL IVP (10:38)
[2022-06-06 10:53] LABS: Magnesium 2.3 mg/dL (1.7-2.3); Thyroid Stimulating Hormone 2.57 uIU/mL (0.27-4.20)
--- NOTE | 2022-06-06 13:58 | P.CONIM_ITS ---
Providers/Reason For Consult Consulting Physician/Specialty*: Purvi Zuniga MD Reason for Consult*: Left valgus impacted subcapital hip fracture Requesting Physician: Stanford Jeffers MD Attending Physician: Michael Syed MD Primary Care Provider: Peter Tirado DO History of Present Illness History of Present Illness Sheri Montes is a 86 year old female who was in her usual state of health where she is a resident at [facility]. The patient presented after a history of a fall while in the bathroom. She suffered a large laceration to her right hand which was repaired in the emergency department, and she was diagnosed as having a valgus impacted left subcapital hip fracture. The patient does have early onset dementia, so history was difficult to obtain. Of note, the patient was seen for a near syncopal episode May 15 in the emergency department, felt to be secondary to dehydration. Review of Systems General: Reports: 10 or more systems reviewed and unremarkable except in HPI and below and ROS unobtainable due to mental status (Review of systems generally unreliable due to patient's dementia) Const: Denies: fever(s) or chills Eyes: Denies: change in vision or photophobia ENMT: Denies: throat pain Card: Denies: chest pain Resp: Denies: dyspnea GI: Denies: abdominal pain, hematochezia or melena : Denies: flank pain Musc: Reports: extremity pain; Denies: neck pain or joint warmth Skin/Breast: Denies: rash Neuro: Denies: headache(s) Psych: Reports: memory loss Endo: Denies: polyuria Patrick/Lymph: Denies: easy bruising All/Imm: Denies: urticaria Medications/Allergies Home Medications Medication Instructions Recorded Confirmed Last Taken Type amlodipine 5 mg tablet 5 mg PO DAILY 12/24/19 06/06/22 05/15/22 History metoprolol succinate 50 mg 50 mg PO DAILY 12/24/19 06/06/22 05/15/22 History tablet,extended release 24 hr rosuvastatin 40 mg tablet 40 mg PO DAILY 12/24/19 06/06/22 05/15/22 History aspirin 81 mg tablet,delayed 81 mg PO DAILY 04/30/20 06/06/22 05/15/22 History release carboxymethylcellulose 0.5 1 drp ophthalmic (eye) DAILY@16 08/30/22 11/11/22 10/20/22 History %-glycerin 0.9 % eye drops (Refresh Relieva) propylene glycol 0.6 % eye drops 1 drp ophthalmic (eye) DAILY 03/25/22 06/06/22 05/15/22 History (Systane Complete) Allergies Allergy/AdvReac Type Severity Reaction Status Date / Time alendronate sodium Allergy Unknown Verified 06/06/22 07:41 [From Fosamax] Current Medications Generic Name Dose Route Start Last Admin Trade Name Freq PRN Reason Stop Dose Admin Sodium Chloride 1,000 mls @ 75 mls/hr 06/06/22 10:24 06/06/22 10:33 Sodium Chloride 0.9% IV 75 mls/hr .[id number] EHSAN Administration PFSH Acute PFSH: Medical History (Updated 06/06/22 @ 10:02 by Michael Syed MD) CAD (coronary artery disease) Cholelithiasis Chronic kidney disease, stage II (mild) COVID-19 Dementia Establishing care with new doctor, encounter for GERD (gastroesophageal reflux disease) History of breast cancer Hyperlipidemia Hypertension Left ureteral calculus Obstructive pyelonephritis Recurrent UTI Urolithiasis Surgical History (Updated 06/06/22 @ 10:02 by Michael Syed MD) History of breast surgery History of coronary angioplasty History of hernia repair History of hysterectomy History of knee surgery History of tubal ligation Family History Father , in his 60's CAD (coronary artery disease) Mother , at age 45 Cancer colon cancer Social History Smoking and tobacco status: former smoker Alcohol intake: never Lives independently: Yes Marital status: / Current occupational status: retired History of recent travel: No Vitals/I&O/Wt Last Vital Signs Temp 97.6 F 06/06/22 12:00 Pulse 66 06/06/22 12:20 Resp 15 06/06/22 12:00 BP 145/72 06/06/22 12:00 Pulse Ox 94 06/06/22 12:20 O2 Del Method 06/06/22 12:20 O2 Flow Rate 3 06/06/22 10:39 Weight last 48 hrs Weight 115 lb Weight 115 lb Physical Exam Const: COMMON NORMALS: no acute distress, average body habitus, patient oriented x3 and alert GENERAL APPEARANCE: cooperative and comfortable ORIENTATION/CONSCIOUSNESS: Yes awake HENMT: COMMON NORMALS: normocephalic and atraumatic HEAD & SCALP: no rmocephalic and atraumatic Eye: GENERAL EYE: appearance normal, both eyes and all related structures Chest: COMMONS NORMALS: normal inspection of the chest Resp: COMMON NORMALS: normal respiratory effort EFFORT & INSPECTION: Yes able to speak in complete sentences and Yes symmetric chest movement Extremity: LEFT LOWER EXTREMITY: Yes hip joint Left hip: Yes inspection (No significant ecchymosis.), Yes ROM (Not evaluated secondary to fracture.) and Yes neurovascular exam (Intact distally.) Neuro: COMMON NORMALS: patient oriented x3 SENSORIUM/ORIENTATION: Yes alert Psych: COMMON NORMALS: mental status grossly normal APPEARANCE: Yes grossly normal ATTITUDE: Yes calm and Yes engaged ATTENTION/CONCENTRATION: Yes attention grossly intact Skin: COMMON NORMALS: no rashes or lesions noted GENERAL SKIN EXAM: no rashes or lesions noted Urinary Catheter Management: Martel: Cath Placed During This Visit: yes Urinary Catheter Date of Insertion: 06/06/22 Urinary Catheter Time of Insertion: 08:01 Data : 06/06/22 07:52 06/06/22 07:52 Xray Ortho: My impression: I have personally reviewed and interpreted the patient's imaging studies from this morning. Patient has an impacted subcapital hip fracture with no significant displacement. There is no anterior posterior angulation, but there is valgus impaction. A&P Assessment and plan (1) Subcapital fracture of left hip: Patient was admitted through the emergency department this morning after a fall at [facility]. Upon admission to the emergency department, she was found to have a left impacted subcapital hip fracture with slight valgus deformity. Patient was admitted and cleared by the medical service is optimized for surgical intervention. The patient was seen with the family, and surgical discussion was undertaken with regard to options and risks of each. Together, we elected to proceed with open reduction internal fixation with cannulated screws. They understood the risk of avascular necrosis, and also understood the risk of bipolar hip arthroplasty. We have elected to proceed, consents are signed, and questions were answered. Consult [facility] Medical Necessity Statement: Hospital admission for treatment of closed left impacted subcapital hip fracture Coding Level of Care Code Acute Faucet Polisher for [facility] Diagnoses Subcapital fracture of left hip S72.012A
[2022-06-06] MEDS: morphine 4 mg/mL SDV 1 mL 2 MG IVP (15:14)
--- NOTE | 2022-06-06 15:28 | PC.NURSE ---
pt to surgery via hospital bed report given to surgical staff
[2022-06-06] MEDS: CELEcoxib 200 mg Capsule 400 MG PO (15:50)
[2022-06-06] MEDS: acetaminophen 1,000 MG/100 ML PIGGYBACK 400 MG IV (15:51)
[2022-06-06] MEDS: sodium chloride 0.9% 1,000 ML 30 ML IV (15:52)
--- NOTE | 2022-06-06 17:23 | PC.NURSE ---
pt returned to rm 279...surgery to repair lt not done at this time
--- NOTE | 2022-06-06 17:54 | ANES.PREANE2 ---
Pre-Anesthetic Assessment Height/Weight: Height 1.55 m Weight 52.163 kg Temp Pulse Resp BP Pulse Ox O2 Del Method O2 Flow Rate 97.9 F 80 15 137/70 95 3 06/06/22 15:47 06/06/22 15:47 06/06/22 15:47 06/06/22 15:47 06/06/22 15:47 06/06/22 15:47 06/06/22 10:39 Preop Diagnosis: Impacted left subcapital hip fracture Operation Date: 06/06/22 19:00 Proposed Procedures p Hip Screw(Left) - Purvi Zuniga MD Familial anesthetic complications: none Was Beta David taken within 24 hours: Yes Was Clonidine taken within 24 hours: N/A Last intake: Intake Last Liquid Date 06/05/22 Last Liquid Time 22:00 Last Solid Date 06/05/22 Last Solid Time 19:00 Social No alcohol and No tobacco Exam alert, oriented x 3 and clear to auscultation bilaterally Airway Submandibular: within normal limits Cervical ROM: within normal limits Mallampati: Class II Dentition: partials CV/HEM Coronary Artery Disease and Hypertension Chronic Renal Insufficiency Metabolic Hyperlipidemia [facility] [place] Osteoarthritis/DJD Neuropsych Dementia Anesthetic Plan ASA status: 3 Anesthesia: General Medications/Allergies Home Medications Medication Instructions Recorded Confirmed Last Taken Type amlodipine 5 mg tablet 5 mg PO DAILY 12/24/19 06/06/22 05/15/22 History metoprolol succinate 50 mg 50 mg PO DAILY 12/24/19 06/06/22 05/15/22 History tablet,extended release 24 hr rosuvastatin 40 mg tablet 40 mg PO DAILY 12/24/19 06/06/22 05/15/22 History aspirin 81 mg tablet,delayed 81 mg PO DAILY 04/30/20 06/06/22 05/15/22 History release carboxymethylcellulose 0.5 1 drp ophthalmic (eye) DAILY@16 03/25/22 06/06/22 05/15/22 History %-glycerin 0.9 % eye drops (Refresh Relieva) propylene glycol 0.6 % eye drops 1 drp ophthalmic (eye) DAILY 03/25/22 06/06/22 05/15/22 History (Systane Complete) Allergies Allergy/AdvReac Type Severity Reaction Status Date / Time alendronate sodium Allergy Unknown Verified 06/06/22 07:41 [From Fosamax] Current Medications Generic Name Dose Route Start Last Admin Trade Name Freq PRN Reason Stop Dose Admin Sodium Chloride 1,000 mls @ 75 mls/hr 06/06/22 10:24 06/06/22 10:33 Sodium Chloride 0.9% IV 75 mls/hr .[id number] EHSAN Administration Sodium Chloride 1,000 mls @ 30 mls/hr 06/06/22 15:45 06/06/22 15:52 Sodium Chloride 0.9% IV 06/07/22 15:44 30 mls/hr .[id number] EHSAN Administration Morphine Sulfate 2 mg 06/06/22 10:24 06/06/22 15:14 Morphine 4 Mg/Ml Sdv 1 Ml IVP 2 mg Q4H PRN Administration SEVERE PAIN PFSH Anesthesia Medical History (Updated 06/06/22 @ 10:02 by Michael Syed MD) CAD (coronary artery disease) Cholelithiasis Chronic kidney disease, stage II (mild) COVID-19 Dementia Establishing care with new doctor, encounter for GERD (gastroesophageal reflux disease) History of breast cancer Hyperlipidemia Hypertension Left ureteral calculus Obstructive pyelonephritis Recurrent UTI Urolithiasis Surgical History (Updated 06/06/22 @ 10:02 by Michael Syed MD) History of breast surgery History of coronary angioplasty History of hernia repair History of hysterectomy History of knee surgery History of tubal ligation Family History Father , in his 60's CAD (coronary artery disease) Mother , at age 45 Cancer colon cancer Social History Smoking and tobacco status: former smoker Alcohol intake: never Lives independently: Yes Marital status: / Current occupational status: retired History of recent travel: No Data Anesthesia : 06/06/22 07:52 06/06/22 07:52 Short CBC 06/06/22 Range/Units 07:52 WBC 6.4 (4.0-10.0) 10^3/uL Hgb 14.2 (11.5-15.3) g/dL Hct 44.3 (37.0-47.0) % MCV 93.1 (81-99) fl Plt Count 230 (130-400) 10^3/cmm Neut % (Auto) 80.0 % Neut # (Auto) 5.15 (1.8-7.7) 10^3/uL BMP 06/06/22 07:52 Sodium 141 Potassium 3.6 Chloride 108 H Carbon Dioxide 22 BUN 24 H Creatinine 1.3 H Glucose 98 Calcium 9.8 Liver Function 06/06/22 Range/Units 07:52 Total Bilirubin 0.8 (0.15-1.2) mg/dL AST 20 (0-32) U/L ALT 13 (0-33) U/L Alkaline Phosphatase 104 (35-105) U/L Albumin 4.0 (3.5-5.2) g/dL Urine 06/06/22 Range/Units 07:55 Urine Color Straw (Yellow) Urine Appearance Sl hazy A (CLEAR) Urine pH 7 (5-7) Ur Specific [place] 1.010 (1.005-1.030) Urine Protein Trace (Negative) Urine Glucose (UA) Norm (Normal) Urine Ketones Negative (Negative) Urine Nitrate Negative (Negative) Urine Bilirubin Neg (Negative) Ur Leukocyte Esterase Negative (Negative) Urine RBC 0-4 H (0-2) /hpf Urine WBC 0-4 H (0-5) /hpf Coags 06/06/22 07:52 PT 14.20 INR 1.07 APTT 29.0 Cardiac Studies: No Data to Display
--- NOTE | 2022-06-06 22:52 | PC.NURSE ---
Pt removed IV from L AC. IV catheter was intact and pressure drsg was applied.
--- NOTE | 2022-06-06 22:59 | PC.NURSE ---
Surgery here to transport patient to OR at this time. Pt leaving floor in stable condition. Niece notified.
[2022-06-07] VITALS (20 sets, daily range): BP systolic 100–183; BP diastolic 49–93; PULSE 64–85; RESP 10–22; TEMP 36.1–36.7; O2SAT 90–100
[2022-06-07] MEDS: ceFAZolin 2,000 MG in sodium chloride 0.9% (plus) 50 ML 100 MG IV ×4 (00:15→17:44)
[2022-06-07] MEDS: ceFAZolin 1,000 mg SDV 1000 MG IRRIGATION (01:04)
--- NOTE | 2022-06-07 01:59 | P.OP_ITS ---
Operative Report Date of procedure: June 07, 2022 Pre-op diagnosis: Impacted left subcapital hip fracture Post-op diagnosis: Impacted left subcapital hip fracture Procedure done: Open reduction internal fixation left subcapital hip fracture utilizing cannulated screws Implants: Cannulated screws x3 Pathology: none sent Surgeon: Purvi Zuniga Medicinal Plant Picker: None Anesthesia: General (Per LMA, ASA 3) Estimated blood loss (mL): 10 IV fluids (mL): 1,200 Urine output (mL): 600 Complications: None Condition: stable Disposition: PACU (Then to floor for postoperative rehabilitation and pain management) Brief History: Sheri Montes is a 86 year old female who was in her usual state of health where she is a resident at [facility].? The patient presented after a history of a fall while in the bathroom.? She suffered a large laceration to her right hand which was repaired in the emergency department, and she was diagnosed as having a valgus impacted left subcapital hip fracture.? 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 Of note, the patient was seen for a near syncopal episode May 15 in the emergency department, felt to be secondary to dehydration. Discussion was undertaken with the patient and her family regarding appropriate treatment. They are given options of bipolar hip arthroplasty versus cannulated screws and the benefits and risks of each. We agreed that the most prudent plan would be for cannulated screws to the patient's left hip. Risks as noted were discussed, questions were answered, and consents were signed. The patient's leg was marked in the preoperative holding area with her family's participation. Procedure: Patient was brought to the operating theater, and after undergoing adequate general anesthesia per LMA, ASA 3, patient was transferred to the fracture table. Fluoroscopy was positioned so that we could visualize the fracture in AP and lateral planes. Maintenance of position of was confirmed. Being satisfied with the position of the femoral head the leg was then prepped with DuraPrep. A shower curtain style drape was utilized to drape out the patient's left lower extremity. Patient's leg was marked in the preoperative holding area and these markings were visualized. A surgical pause was performed. We confirmed administration of preoperative IV Ancef 2 g as well as the patient's identity, the planned surgical procedure, and the site and side of surgery. Fluoroscopy was utilized, and an incision was made in appropriate position to allow placement of 3 cannulated screws using the Johnna gun as a guide. The most inferior of the inverted triangle wire was placed first. Optimal position was determined with fluoroscopy in AP and lateral. The remaining guidewires were then placed also under fluoroscopic guidance in AP and lateral planes. The Johnna gun was removed and the length of guidewires was measured. The cannulated screws were then placed over the guidewire. Guidewires were advanced to appropriate position and subsequently hand tightened. Position of the screws was confirmed in AP and lateral planes. Being satisfied with the position and length of the screws, guidewires were removed. AP and lateral images were obtained utilizing fluoroscopy. Being satisfied the wound was irrigated, closure was then accomplished with 2-0 Monocryl in the subcutaneous tissues. Skin was closed with a running 3-0 Monocryl. Sterile dressing was then placed consisting of Dermabond and OpSite. The patient was returned the recovery room in satisfactory condition. There were no complications. There were no specimens. Related Problem List Diagnoses (1) Subcapital fracture of left hip:
--- NOTE | 2022-06-07 02:02 | XR_ITS ---
WS: [id number] Exam: XR hip LT 2-3V wo/w pel* [id number] Date/Time of Exam: 06/07/2022 2:03 AM Reason For Exam: ORIF LT HIP C-ARM PICS Comparison 06/06/2022. AP and lateral C-arm images of the left hip demonstrate 3 orthopedic nails stabilizing a subcapital f racture in satisfactory position for healing. Minimal degenerative changes of the joint compartment. XR/XR hip LT 2-3V wo/w pel* [id number] IMPRESSION: 1. Satisfactory ORIF involving a subcapital fracture of the left hip.
--- NOTE | 2022-06-07 02:31 | PC.NURSE ---
Pt returned from surgery at this time. Pt is resting in bed lying on left side. Drsg is intact w/minimal amt of blood drng noted on drsg. Pt currently has ice pack in place to left hip surgical incision site, and denies pain at this time. Will notifiy niece that pt has returned to the floor.
[2022-06-07] MEDS: acetaminophen 1,000 MG/100 ML PIGGYBACK 400 MG IV (02:44)
--- NOTE | 2022-06-07 03:18 | ANE.PACU2 ---
Inpatient post-anesthesia follow up: Airway intact: Yes Vital signs: Temperature 97.9 F Pulse Rate 70 Respiratory Rate 18 Blood Pressure 137/64 Pulse Oximetry 94 Oxygen Delivery Me thod [ Room Air Current Rate & Del donny] Oxygen Delivery Me thod Room Air Oxygen Flow Rate 6 Fraction of Inspir ed Oxygen Hydration adequate: Yes Nausea and vomiting: No Pain level: 3 Mental status: Baseline
[2022-06-07] MEDS: sodium chloride 0.9% 1,000 ML 75 ML IV ×2 (06:33→21:07)
[2022-06-07] MEDS: multivitamin therapeutic Tablet 1 TAB PO (09:47)
[2022-06-07] MEDS: CELEcoxib 200 mg Capsule PO (09:47)
[2022-06-07] MEDS: sennosides-docusate Tablet 2 TAB PO ×2 (09:47→17:44)
--- NOTE | 2022-06-07 10:13 | P.PN_ITS ---
Subjective Subjective: Patient is seen after having just awoken. She is ready to work with physical therapy. This is not as yet occurred. Patient will be allowed to be weightbearing as tolerated. Medications: Reviewed: Yes Vitals/I&O/Wt Last Vital Signs Temp 97.5 F L 06/07/22 07:30 Pulse 64 06/07/22 07:30 Resp 16 06/07/22 07:30 BP 100/49 06/07/22 07:30 Pulse Ox 92 06/07/22 07:30 O2 Del Method 06/07/22 07:30 O2 Flow Rate 6 06/07/22 01:55 06/06/22 06/07/22 06/07/22 22:59 06:59 14:59 Intake Total 100 / 100 2816.5 / 2916.5 Output Total 850 / 850 1810 / 2660 Balance -750 / -750 1006.5 / 256.5 Weight last 48 hrs Weight 115 lb Weight 115 lb Physical Exam Const: COMMON NORMALS: no acute distress, average body habitus, patient oriented x3 and alert GENERAL APPEARANCE: cooperative and comfortable ORIENTATION/CONSCIOUSNESS: Yes awake HENMT: COMMON NORMALS: normocephalic and atraumatic HEAD & SCALP: normocephalic and atraumatic Eye: GENERAL EYE: appearance normal, both eyes and all related structures Chest: COMMONS NORMALS: normal inspection of the chest Resp: COMMON NORMALS: normal respiratory effort EFFORT & INSPECTION: Yes able to speak in complete sentences and Yes symmetric chest movement Extremity: LEFT LOWER EXTREMITY: Yes hip joint Left hip: Yes inspection (There is no thigh swelling. No ecchymosis.), Yes palpation (No swelling and minimal tenderness to palpation.), Yes ROM (Not evaluated.) and Yes neurovascular exam (Intact distally.) Neuro: COMMON NORMALS: patient oriented x3 SENSORIUM/ORIENTATION: Yes alert Psych: COMMON NORMALS: mental status grossly normal APPEARANCE: Yes grossly normal ATTITUDE: Yes calm and Yes engaged ATTENTION/CONCENTRATION: Yes attention grossly intact Skin: COMMON NORMALS: no rashes or lesions noted GENERAL SKIN EXAM: no rashes or lesions noted Urinary Catheter Management: Martel: Cath Placed During This Visit: yes Reason for Continuing Indwelling Catheter: Perioperative Use in Selected Surgeries Urinary Catheter Date of Insertion: 06/06/22 Urinary Catheter Time of Insertion: 08:01 Data : 06/06/22 07:52 06/06/22 07:52 A&P Assessment and plan (1) Subcapital fracture of left hip: Patient was admitted through the emergency department after a fall at [facility]. Upon admission to the emergency department, she was found to h ave a left impacted subcapital hip fracture with slight valgus deformity. The patient underwent cannulated hip screws last evening for her impacted subcapital hip fracture. This morning, she is seen in her room. She is somewhat confused. She was confused last night prior to her surgery as well. She will likely require usp at the time of discharge. I have broached the subject with the family. Currently, I am maintaining her on her 81 mg aspirin daily for anticoagulation. This may be increased if deemed necessary. Attestations Medical Necessity Statement*: Patient will require ongoing medical care following treatment of subcapital hip fracture. Coding Level of Care Code Acute Aircraft Mechanic Armament for Caroline Fwnaeem Exam Comprehensive Diagnoses Subcapital fracture of left hip S72.012A
--- NOTE | 2022-06-07 10:30 | PM.PN ---
Subjective Subjective: She is only oriented to herself Currently hemodynamically stable Did not complain of active pain Vitals/I&O/Wt Last Vital Signs Temp 97.5 F L 06/07/22 07:30 Pulse 64 06/07/22 07:30 Resp 16 06/07/22 07:30 BP 100/49 06/07/22 07:30 Pulse Ox 92 06/07/22 07:30 O2 Del Method 06/07/22 07:30 O2 Flow Rate 6 06/07/22 01:55 06/06/22 06/07/22 06/07/22 22:59 06:59 14:59 Intake Total 100 / 100 2816.5 / 2916.5 Output Total 850 / 850 1810 / 2660 Balance -750 / -750 1006.5 / 256.5 Weight last 48 hrs Weight 52.163 kg Weight 52.163 kg Physical Exam Narrative: Patient is laying supine Looks comfortable Opens eyes Try to communicate however she is still confused, only oriented to herself Currently doing well on room air Hemodynamically stable Abdomen soft Looks dehydrated Able to move her upper extremities Crusting noted around her eyelids does not look infected Urinary Catheter Management: Martel: Cath Placed During This Visit: yes Reason for Continuing Indwelling Catheter: Perioperative Use in Selected Surgeries Urinary Catheter Date of Insertion: 06/06/22 Urinary Catheter Time of Insertion: 08:01 Data : 06/06/22 07:52 06/06/22 07:52 A&P Assessment and plan (1) Subcapital fracture of left hip: (2) Laceration of hand: (3) Lethargy: (4) Hypertension: (5) Fall: (6) Generalized weakness: (7) Parkinson's disease dementia: (8) Lives in assisted living facility: Plan Awaiting [facility] placement Postop day 1 Continue IV fluids Currently doing well on room air I will discontinue celecoxib For DVT prophylaxis we will keep her on Lovenox Oxycodone for pain management along bowel regimen Daily PT Out of bed to chair Cardiac diet DNR/DNI Attestations Medical Necessity Statement*: Awaiting placement Time Spent in Patient Care: 30 Coding Level of Care Code Acute Plumbing Warehouse Helper for Caroline Segura Diagnoses Subcapital fracture of left hip S72.012A Laceration of hand S61.419A Lethargy R53.83 Hypertension I10 Fall W19.XXXA Generalized weakness R53.1 Parkinson's disease dementia G20; F02.80 Lives in assisted living facility Z59.3
--- NOTE | 2022-06-07 11:12 | PC.NURSE ---
Called Dr. Pedersen to verify D/C'd Tylenol order, Per Dr. Pedersen pt is not in any distress on his rounding and does not feel medication is needed via IV. Dr. Pedersen is would like patient taking PO Tylenol as needed for pain.
[2022-06-07] MEDS: enoxaparin 30 mg/0.3 mL Syringe SUBCUT (12:01)
[2022-06-07] MEDS: acetaminophen 325 mg Tablet 650 MG PO (12:05)
[2022-06-08] VITALS (10 sets, daily range): BP systolic 123–162; BP diastolic 54–76; PULSE 60–90; RESP 15–20; TEMP 36.6–37; O2SAT 91–95
--- NOTE | 2022-06-08 00:09 | PC.NURSE ---
Pt is resting quietly in bed w/o c/o pain or s/sx of pain present at this time. Currently pt is watching t.v.
--- NOTE | 2022-06-08 05:06 | PC.NURSE ---
16fr alvarado catheter removed per surgeons orders, after bladder traning. Pt tolerated procedure well.
[2022-06-08 05:26] LABS: Basophils % 0.1 %; Hematocrit 34.5 % (37.0-47.0); Hemoglobin 11.1 g/dL (11.5-15.3); Lymphocytes # 0.5 10^3/uL (0.8-4.8); Lymphocytes % 3.6 %; Mean Corpuscular HGB Conc 32.2 g/dL (30.0-36.0); Mean Corpuscular Volume 93.2 fl (81-99); Mean Platelet Volume 10.2 fL (7.4-10.4); Monocytes # 0.9 10^3/uL (0.2-0.9); Monocytes % 7.2 %; Neutrophils # 11.32 10^3/uL (1.8-7.7); Neutrophils % 88.2 %; Nucleated Red Blood Cells % 0 %; Platelet Count 183 10^3/cmm (130-400); Red Cell Distribution Width 13.8 % (12.1-15.1); White Blood Count 12.8 10^3/uL (4.0-10.0)
[2022-06-08] MEDS: multivitamin therapeutic Tablet 1 TAB PO (09:05)
[2022-06-08] MEDS: amlodipine 5 mg Tablet PO (09:05)
[2022-06-08] MEDS: aspirin 81 mg EC Tablet PO (09:05)
[2022-06-08] MEDS: sennosides-docusate Tablet 2 TAB PO ×2 (09:05→17:18)
[2022-06-08] MEDS: metoprolol succinate ER (24 HR) 25 mg Tablet PO (09:06)
[2022-06-08] MEDS: enoxaparin 30 mg/0.3 mL Syringe SUBCUT (10:29)
[2022-06-08] MEDS: sodium chloride 0.9% 1,000 ML 75 ML IV (10:55)
[2022-06-08] MEDS: acetaminophen 325 mg Tablet 650 MG PO (11:09)
--- NOTE | 2022-06-08 11:38 | PM.PN ---
Subjective Subjective: Patient is much more awake and alert Very pleasant Did not ask any questions Looks comfortable No need of blood work tomorrow Vitals/I&O/Wt Last Vital Signs Temp 97.9 F 06/08/22 11:28 Pulse 65 06/08/22 11:28 Resp 18 06/08/22 11:28 BP 162/76 06/08/22 11:28 Pulse Ox 95 06/08/22 11:28 O2 Del Method 06/08/22 11:28 O2 Flow Rate 6 06/07/22 01:55 06/07/22 06/08/22 06/08/22 22:59 06:59 14:59 Intake Total 1290 / 1340 400 / 1740 1240 / 1240 Output Total 750 / 750 Balance 1290 / 1340 -350 / 990 1240 / 1240 Weight last 48 hrs Weight 63.82 kg Physical Exam Narrative: Eating in a recliner Awake and alert Oriented to self Does not look to be in any distress Euvolemic Currently doing well on room air Hemodynamically stable S1, S2 No audible stridor or wheezing No focal deficit noted Urinary Catheter Management: Martel: Cath Placed During This Visit: yes, but has since been removed by the nurse Reason for Continuing Indwelling Catheter: Perioperative Use in Selected Surgeries Urinary Catheter Date of Insertion: 06/06/22 Urinary Catheter Time of Insertion: 08:01 Date Urinary Catheter Removed: 06/08/22 Time Urinary Catheter Discontinued: 05:08 Data : 06/08/22 05:10 06/06/22 07:52 A&P Assessment and plan (1) Subcapital fracture of left hip: (2) Lethargy: (3) Laceration of hand: (4) Hypertension: (5) CAD (coronary artery disease): (6) Fall: (7) Generalized weakness: (8) Recurrent UTI: (9) Parkinson's disease dementia: (10) Lives in assisted living facility: Plan Hip fracture status post intervention Currently awaiting [facility] placement No postop complications No need of blood work for Thursday Hopefully will be able to send her to [facility] in next 24 hours Blood pressure slightly on higher side Discontinue IV fluids Optimize antihypertensive regimen Patient does not seem to be in any distress Currently doing well on room air Pleasant and cooperative Underlying dementia without acute exacerbation dnr dni Attestations Medical Necessity Statement*: Continue medical management Time Spent in Patient Care: 30 Coding Level of Care Code Acute Compensation And Benefits Analyst for Chg Fwd Diagnoses Subcapital fracture of left hip S72.012A Lethargy R53.83 Laceration of hand S61.419A Hypertension I10 CAD (coronary artery disease) I25.10 Fall W19.XXXA Generalized weakness R53.1 Recurrent UTI N39.0 Parkinson's disease dementia G20; F02.80 Lives in assisted living facility Z59.3
[2022-06-08] MEDS: lisinopril 5 mg Tablet PO (13:01)
[2022-06-08] MEDS: oxyCODONE 5 mg IR Tab/Cap PO (23:11)
--- NOTE | 2022-06-08 23:18 | PC.NURSE ---
Pt ambulated to the bathroom w/ext assist of 1. Pt was incontinent of urine, nany care give. Linens and gown changed. PRN oxy IR given for moderated pain, pt states Left hip was hurting.
[2022-06-09] VITALS (8 sets, daily range): BP systolic 114–153; BP diastolic 54–64; PULSE 68–76; RESP 16–18; TEMP 36.7–36.8; O2SAT 92–95
[2022-06-09] MEDS: lisinopril 5 mg Tablet PO (08:19)
[2022-06-09] MEDS: aspirin 81 mg EC Tablet PO (08:19)
[2022-06-09] MEDS: multivitamin therapeutic Tablet 1 TAB PO (08:19)
[2022-06-09] MEDS: sennosides-docusate Tablet 2 TAB PO ×2 (08:19→17:17)
[2022-06-09] MEDS: metoprolol succinate ER (24 HR) 25 mg Tablet PO (08:19)
[2022-06-09] MEDS: amlodipine 10 mg Tablet PO (08:19)
--- NOTE | 2022-06-09 09:55 | PC.SOCIAL ---
Imm update Imm updated with patient at bedside. Copy of page 2 provided. patient verbalized understanding. Copy in chart initialed, dated and timed.
[2022-06-09] MEDS: enoxaparin 30 mg/0.3 mL Syringe SUBCUT (10:56)
--- NOTE | 2022-06-09 13:05 | P.PN_ITS ---
Subjective Subjective: Patient has continued inpatient care for subcapital left hip fracture status post open reduction internal fixation with cannulated screws. She is slightly more awake today. Medications: Reviewed: Yes Vitals/I&O/Wt Last Vital Signs Temp 98.5 F 06/10/22 04:00 Pulse 73 06/10/22 06:00 Resp 16 06/10/22 04:00 BP 133/56 06/10/22 04:00 Pulse Ox 94 06/10/22 04:00 O2 Del Method 06/09/22 16:00 O2 Flow Rate 6 06/07/22 01:55 06/09/22 06/10/22 06/10/22 22:59 06:59 14:59 Intake Total 240 / 720 Balance 240 / 720 Physical Exam Const: COMMON NORMALS: no acute distress, average body habitus, patient oriented x3 and alert GENERAL APPEARANCE: cooperative and comfortable ORIENTATION/CONSCIOUSNESS: Yes awake HENMT: COMMON NORMALS: normocephalic and atraumatic HEAD & SCALP: normocephalic and atraumatic Eye: GENERAL EYE: appearance normal, both eyes and all related structures Chest: COMMONS NORMALS: normal inspection of the chest Resp: COMMON NORMALS: normal respiratory effort EFFORT & INSPECTION: Yes able to speak in complete sentences and Yes symmetric chest movement Extremity: LEFT LOWER EXTREMITY: Yes hip joint (Dressing is dry and intact.) Left hip: Yes inspection (No drainage.), Yes palpation (Minimal tenderness.), Yes ROM (Not evaluated.) and Yes neurovascular exam (Intact distally.) Neuro: COMMON NORMALS: patient oriented x3 SENSORIUM/ORIENTATION: Yes alert Psych: COMMON NORMALS: mental status grossly normal APPEARANCE: Yes grossly normal ATTITUDE: Yes calm and Yes engaged ATTENTION/CONCENTRATION: Yes attention grossly intact Skin: COMMON NORMALS: no rashes or lesions noted GENERAL SKIN EXAM: no rashes or lesions noted Urinary Catheter Management: Martel: Cath Placed During This Visit: yes, but has since been removed by the nurse Reason for Continuing Indwelling Catheter: Perioperative Use in Selected Surge lela Urinary Catheter Date of Insertion: 06/06/22 Urinary Catheter Time of Insertion: 08:01 Date Urinary Catheter Removed: 06/08/22 Time Urinary Catheter Discontinued: 05:08 Data 06/08/22 05:10 06/06/22 07:52 A&P Assessment and plan (1) Subcapital fracture of left hip: Patient was admitted through the emergency department after a fall at [facility]. Upon admission to the emergency department, she was found to have a left impacted subcapital hip fracture with slight valgus deformity. The patient underwent cannulated hip screws for her impacted subcapital hip fracture. The patient's confusion is resolving somewhat since her surgery. She is awaiting placement to shelter. Her dressing is dry and intact, there is no evidence of DVT, and from an orthopedic perspective, she is ready for discharge. She will need to be placed on aspirin for DVT prophylaxis, but this could be her 81 mg tablet in the interest of safety. Attestations Medical Necessity Statement*: Ongoing care for left hip fracture. Coding Level of Care Code Acute Packaging Line Attendant for Caroline Segura Diagnoses Subcapital fracture of left hip S72.012A
--- NOTE | 2022-06-09 16:32 | PM.PN ---
Subjective Subjective: Awaiting placement No overnight events Vitals/I&O/Wt Last Vital Signs Temp 98.3 F 06/09/22 11:52 Pulse 76 06/09/22 11:52 Resp 17 06/09/22 11:52 BP 128/60 06/09/22 11:52 Pulse Ox 94 06/09/22 11:52 O2 Del Method 06/09/22 11:52 O2 Flow Rate 6 06/07/22 01:55 06/09/22 06/09/22 06/09/22 06:59 14:59 22:59 Intake Total 1211.25 / 2811.25 480 / 480 Balance 1211.25 / 2811.25 480 / 480 Weight last 48 hrs Weight 63.82 kg Physical Exam Narrative: Patient resting comfortably Dehydrated Abdomen soft Oriented to herself No acute distress Urinary Catheter Management: Maretl: Cath Placed During This Visit: yes, but has since been removed by the nurse Reason for Continuing Indwelling Catheter: Perioperative Use in Selected Surgeries Urinary Catheter Date of Insertion: 06/06/22 Urinary Catheter Time of Insertion: 08:01 Date Urinary Catheter Removed: 06/08/22 Time Urinary Catheter Discontinued: 05:08 Data : 06/08/22 05:10 06/06/22 07:52 A&P Assessment and plan (1) Subcapital fracture of left hip: (2) Laceration of hand: Plan Awaiting placement No change in medications today Attestations Medical Necessity Statement*: Awaiting placement Time Spent in Patient Care: 5 min Coding Level of Care Code Acute Snowsport Instructor for Caroline Segura Diagnoses Subcapital fracture of left hip S72.012A Laceration of hand S61.419A
[2022-06-10] VITALS (9 sets, daily range): BP systolic 113–157; BP diastolic 32–73; PULSE 64–79; RESP 16–18; TEMP 36.6–36.9; O2SAT 92–96
[2022-06-10] MEDS: sennosides-docusate Tablet 2 TAB PO ×2 (08:58→17:05)
[2022-06-10] MEDS: amlodipine 10 mg Tablet PO (08:59)
[2022-06-10] MEDS: metoprolol succinate ER (24 HR) 25 mg Tablet PO (08:59)
[2022-06-10] MEDS: aspirin 81 mg EC Tablet PO (08:59)
[2022-06-10] MEDS: lisinopril 5 mg Tablet PO (08:59)
[2022-06-10] MEDS: multivitamin therapeutic Tablet 1 TAB PO (08:59)
[2022-06-10] MEDS: enoxaparin 30 mg/0.3 mL Syringe SUBCUT (10:51)
--- NOTE | 2022-06-10 15:49 | PC.OT ---
OT TREATMENT ATTEMPTED TWICE. PATIENT SITTING EOB FOR 2 ATTEMPTS EATING FRUIT AND PUDDING BOTH TIMES. AT 3RD ATTEMPT PATIENT WAS LYING IN BED SOUND ASLEEP.
--- NOTE | 2022-06-10 18:41 | P.PN_ITS ---
Subjective Subjective: Awaiting placement No overnight events Vitals/I&O/Wt Last Vital Signs Temp 97.9 F 06/10/22 15:52 Pulse 70 06/10/22 15:52 Resp 18 06/10/22 15:52 BP 138/64 06/10/22 15:52 Pulse Ox 93 06/10/22 15:52 O2 Del Method 06/10/22 15:52 O2 Flow Rate 6 06/07/22 01:55 06/10/22 06/10/22 06/10/22 06:59 14:59 22:59 Intake Total 600 / 600 Balance 600 / 600 Physical Exam Narrative: Resting comfortably in her bed Oriented to self Does not look to be in any distress Euvolemic Currently doing well on room air Hemodynamically stable S1, S2 No audible stridor or wheezing No focal deficit noted Urinary Catheter Management: Martel: Cath Placed During This Visit: yes, but has since been removed by the nurse Reason for Continuing Indwelling Catheter: Perioperative Use in Selected Surgeries Urinary Catheter Date of Insertion: 06/06/22 Urinary Catheter Time of Insertion: 08:01 Date Urinary Catheter Removed: 06/08/22 Time Urinary Catheter Discontinued: 05:08 Data : 06/08/22 05:10 06/06/22 07:52 A&P Assessment and plan (1) Subcapital fracture of left hip: Plan Awaiting placement Attestations Medical Necessity Statement*: 5 Coding Level of Care Code Acute Zipper Sewing Machine Operator for Caroline Segura Diagnoses Subcapital fracture of left hip S72.012A
[2022-06-11] VITALS (7 sets, daily range): BP systolic 118–132; BP diastolic 62–68; PULSE 58–85; RESP 16–18; TEMP 36.7–36.9; O2SAT 94–95
[2022-06-11] MEDS: metoprolol succinate ER (24 HR) 25 mg Tablet PO (08:30)
[2022-06-11] MEDS: amlodipine 10 mg Tablet PO (08:30)
[2022-06-11] MEDS: sennosides-docusate Tablet 2 TAB PO ×2 (08:30→17:33)
[2022-06-11] MEDS: aspirin 81 mg EC Tablet PO (08:30)
[2022-06-11] MEDS: multivitamin therapeutic Tablet 1 TAB PO (08:30)
[2022-06-11] MEDS: lisinopril 5 mg Tablet PO (08:30)
--- NOTE | 2022-06-11 09:00 | PC.SOCIAL ---
IMM update IMM updated with patient. Verbalized an understanding. Copy Pg 2 provided. Initialled, dated, timed, and placed in chart.
--- NOTE | 2022-06-11 10:36 | P.PN_ITS ---
Subjective Subjective: Patient sitting comfortably in her chair eating breakfast, Vitals/I&O/Wt Last Vital Signs Temp 98.4 F 06/11/22 08:00 Pulse 62 06/11/22 08:00 Resp 17 06/11/22 08:00 BP 128/68 06/11/22 08:00 Pulse Ox 94 06/11/22 08:00 O2 Del Method 06/11/22 08:00 O2 Flow Rate 6 06/07/22 01:55 06/10/22 06/11/22 06/11/22 22:59 06:59 14:59 Intake Total 200 / 800 Output Total 375 / 375 250 / 625 200 / 200 Balance -175 / 425 -250 / 175 -200 / -200 Physical Exam Narrative: Pleasant and cooperative S1, S2 Currently on room air Hemodynamic stable No new focal deficit Urinary Catheter Management: Martel: Cath Placed During This Visit: yes, but has since been removed by the nurse Reason for Continuing Indwelling Catheter: Perioperative Use in Selected Surgeries Urinary Catheter Date of Insertion: 06/06/22 Urinary Catheter Time of Insertion: 08:01 Date Urinary Catheter Removed: 06/08/22 Time Urinary Catheter Discontinued: 05:08 Data : 06/08/22 05:10 06/06/22 07:52 A&P Assessment and plan (1) Subcapital fracture of left hip: Plan Patient is hemodynamically stable not going to change any of his medications Awaiting placement DVT prophylaxis Lovenox Attestations Medical Necessity Statement*: Awaiting placement Time Spent in Patient Care: 5 Coding Level of Care Code Acute Line Maintenance Supervisor for Caroline Segura Diagnoses Subcapital fracture of left hip S72.012A
[2022-06-11] MEDS: enoxaparin 30 mg/0.3 mL Syringe SUBCUT (11:35)
--- NOTE | 2022-06-11 12:02 | PC.CHAP ---
Pastoral Care Encounter/Spiritual Assessment Type of Contact [] Declined antisubmarine weapons officer visit [] Patient/Family/Request visit [] Outpatient visit [] Follow-up visit [] Physician referral [] Code/Alert [x] Routine visit [] Staff referral [] Actively dying [] Patient sleeping [] Family support [] [] Out of room [] Palliative care [] [x] Receiving care in room [] Pre-surgical visit [] Trauma [] Long length of stay [] ICU visit [] Other: Relational/Emotional Strength [] Patient feels connected with others/family/visitors/staff [] Distress [] Loneliness/isolation [] Abandonment Spirituality of Patient [] Person of Drea [] Attends Faith of their Drea [] Believes in Prayer [] Reads Bible or Scientology materials [] There are Spiritual issues to be addressed Online Merchandising Specialist Interventions [] Prayer [] Active listening [] Non-anxious presence [] Spiritual/emotional support [] Crisis/trauma care [] Spiritual counseling [] Bereavement support [] Provided bereavement packet [] Provided Bible/devotional materials [] Provided toy/stuffed animal, coloring book to patient or family member [] Provided Communion [] Anointing/[place] [] Salvation [] Completed spiritual assessment [] Other: Impact on Illness or Injury [] Angry [] Fearful [] Anxious [] Often cries [] Exhaustion [] Unable to work [] Unable to attend islam [] Unable to walk/stand [] Unable to read [] Unable to drive [] Unable to eat/drink [] Unable to sleep [] Unable to be with family [] Patient intubated [] Other: Summary Time spent with patient
--- NOTE | 2022-06-11 15:06 | PM.PN ---
Subjective Subjective: Patient is sleeping at the time she is seen. This was at approximately lunchtime. She had no complaints and barely awoke when we looked at her hip Medications: Reviewed: Yes Vitals/I&O/Wt Last Vital Signs Temp 98.2 F 06/11/22 11:36 Pulse 60 06/11/22 11:36 Resp 18 06/11/22 11:36 BP 132/64 06/11/22 11:36 Pulse Ox 95 06/11/22 11:36 O2 Del Method 06/11/22 11:36 O2 Flow Rate 6 06/07/22 01:55 06/11/22 06/11/22 06/11/22 06:59 14:59 22:59 Output Total 250 / 625 200 / 200 Balance -250 / 175 -200 / -200 Physical Exam Const: COMMON NORMALS: no acute distress, average body habitus, patient oriented x3 and alert GENERAL APPEARANCE: cooperative and comfortable ORIENTATION/CONSCIOUSNESS: Yes awake HENMT: COMMON NORMALS: normocephalic and atraumatic HEAD & SCALP: normocephalic and atraumatic Eye: GENERAL EYE: appearance normal, both eyes and all related structures Chest: COMMONS NORMALS: normal inspection of the chest Resp: COMMON NORMALS: normal respiratory effort EFFORT & INSPECTION: Yes able to speak in complete sentences and Yes symmetric chest movement Extremity: RIGHT UPPER EXTREMITY: Yes hand & digits (Laceration repaired in the ER is evaluated and appears intact. No infectio) LEFT LOWER EXTREMITY: Yes hip joint (Some ecchymosis at the site of incision.) Left hip: Yes inspection (No drainage, dressing is removed. Incision dry and intact), Yes palpation (No tenderness.), Yes ROM (Not evaluated.) and Yes neurovascular exam (Intact distally.) Neuro: COMMON NORMALS: patient oriented x3 SENSORIUM/ORIENTATION: Yes alert Psych: COMMON NORMALS: mental status grossly normal APPEARANCE: Yes grossly normal ATTITUDE: Yes calm and Yes engaged ATTENTION/CONCENTRATION: Yes attention grossly intact Skin: COMMON NORMALS: no rashes or lesions noted GENERAL SKIN EXAM: no rashes or lesions noted Urinary Catheter Management: Martel: Cath Placed During This Visit: yes, but has since been removed by the nurse Reason for Continuing Indwelling Catheter: Perioperative Use in Selected Surgeries Urinary Catheter Date of Insertion: 06/06/22 Urinary Catheter Time of Insertion: 08:01 Date Urinary Catheter Removed: 06/08/22 Time Urinary Catheter Discontinued: 05:08 Data 06/08/22 05:10 06/06/22 07:52 A&P Assessment and plan (1) Subcapital fracture of left hip: Patient was admitted through the emergency department after a fall at [facility]. Upon admission to the emergency department, she was found to have a left impacted subcapital hip fracture with slight valgus deformity. The patient underwent cannulated hip screws for her impacted subcapital hip fracture. Additionally, the patient had a repair of a right hand laceration in the emergency department. This is evaluated today and appears healed and is intact. The patient's confusion is resolving somewhat since her surgery. She is awaiting placement to custodial. Her dressing is removed, and there is no evidence of infection and no drainage. Additionally, there is no evidence of DVT, and from an orthopedic perspective, she is ready for discharge. She will need to be placed on aspirin for DVT prophylaxis, but this could be her 81 mg tablet in the interest of safety. Attestations Medical Necessity Statement*: Ongoing care and awaiting safe placement following hip fracture. Coding Level of Care Code Acute Glass Novelty Maker for Caroline Segura Diagnoses Subcapital fracture of left hip S72.012A
[2022-06-12] VITALS (8 sets, daily range): BP systolic 114–150; BP diastolic 68–71; PULSE 66–80; RESP 15–24; TEMP 36.6–36.8; O2SAT 93–97
--- NOTE | 2022-06-12 09:21 | P.PN_ITS ---
Subjective Subjective: Patient is seen in her bed. She is awake and alert. She states that her hip is doing well. Medications: Reviewed: Yes Vitals/I&O/Wt Last Vital Signs Temp 98.3 F 06/12/22 03:16 Pulse 66 06/12/22 06:00 Resp 16 06/12/22 03:16 BP 137/68 06/12/22 03:16 Pulse Ox 93 06/12/22 03:16 O2 Del Method 06/12/22 03:16 O2 Flow Rate 6 06/07/22 01:55 06/11/22 06/12/22 06/12/22 22:59 06:59 14:59 Intake Total 500 / 860 Output Total 100 / 300 Balance 400 / 560 Physical Exam Const: COMMON NORMALS: no acute distress, average body habitus, patient oriented x3 and alert GENERAL APPEARANCE: cooperative and comfortable ORIENTATION/CONSCIOUSNESS: Yes awake HENMT: COMMON NORMALS: normocephalic and atraumatic HEAD & SCALP: normocephalic and atraumatic Eye: GENERAL EYE: appearance normal, both eyes and all related structures Chest: COMMONS NORMALS: normal inspection of the chest Resp: COMMON NORMALS: normal respiratory effort EFFORT & INSPECTION: Yes able to speak in complete sentences and Yes symmetric chest movement Extremity: LEFT LOWER EXTREMITY: Yes hip joint (No specific complaints.) Left hip: Yes inspection (Ecchymotic, minimally, but no significant swelling.), Yes palpation (Minimal.), Yes ROM (Not evaluated.) and Yes neurovascular exam (No evidence of DVT.) Neuro: COMMON NORMALS: patient oriented x3 SENSORIUM/ORIENTATION: Yes alert Psych: COMMON NORMALS: mental status grossly normal APPEARANCE: Yes grossly normal ATTITUDE: Yes calm and Yes engaged ATTENTION/CONCENTRATION: Yes attention grossly intact Skin: COMMON NORMALS: no rashes or lesions noted GENERAL SKIN EXAM: no rashes or lesions noted Urinary Catheter Management: Martel: Cath Placed During This Visit: yes, but has since been removed by the nurse Reason for Continuing Indwelling Catheter: Perioperative Use in Selected Surgeries Urinary Catheter Date of Insertion: 06/06/22 Urinary Catheter Time of Insertion: 08:01 Date Urinary Catheter Removed: 06/08/22 Time Urinary Catheter Discontinued: 05:08 Data 06/08/22 05:10 06/06/22 07:52 A&P Assessment and plan (1) Subcapital fracture of left hip: Patient was admitted through the emergency department after a fall at [facility]. Upon admission to the emergency department, she was found to have a left impacted subcapital hip fracture with slight valgus deformity. The patient underwent cannulated hip screws for her impacted subcapital hip fracture. Additionally, the patient had a repair of a right hand laceration in the emergency department. The patient's confusion is resolving somewhat since her surgery. She is [facility] placement to [facility], and authorization is still pending. Her dressing on her hip was removed yesterday, and there is no evidence of infection and no drainage. Additionally, there is no evidence of DVT, and from an orthopedic perspective, she is ready for discharge. She will need to be placed on aspirin for DVT prophylaxis, but this could be her 81 mg tablet in the interest of safety. She may be weightbearing as tolerated Attestations Medical Necessity Statement*: Awaiting insurance authorization for placement to [facility] Time Spent in Patient Care: 16 - 35 minutes Discharge planning and discussion with hospitalist provider. Documentation of postoperative plan. Coding Level of Care Code Acute Monument Erector for Caroline Segura Diagnoses Subcapital fracture of left hip S72.012A
[2022-06-12] MEDS: aspirin 81 mg EC Tablet PO (10:44)
[2022-06-12] MEDS: sennosides-docusate Tablet 2 TAB PO (10:44)
[2022-06-12] MEDS: amlodipine 10 mg Tablet PO (10:44)
[2022-06-12] MEDS: multivitamin therapeutic Tablet 1 TAB PO (10:44)
[2022-06-12] MEDS: metoprolol succinate ER (24 HR) 25 mg Tablet PO (10:45)
[2022-06-12] MEDS: lisinopril 5 mg Tablet PO (10:47)
--- NOTE | 2022-06-12 10:48 | PM.PN ---
Subjective Subjective: No overnight events Dr. Fleming did call me today to update regarding her status She is awaiting placement Dr. Fleming is recommending aspirin for DVT prophylaxis at the time of discharge Vitals/I&O/Wt Last Vital Signs Temp 98.0 F 06/12/22 08:00 Pulse 72 06/12/22 08:00 Resp 15 06/12/22 08:00 BP 148/70 06/12/22 10:45 Pulse Ox 97 06/12/22 08:00 O2 Del Method 06/12/22 03:16 O2 Flow Rate 6 06/07/22 01:55 06/11/22 06/12/22 06/12/22 22:59 06:59 14:59 Intake Total 500 / 860 Output Total 100 / 300 Balance 400 / 560 Physical Exam Narrative: Nonfocal neuro exam Awake and alert Hemodynamically stable No audible stridor or wheezing Signs of dehydration improving Abdomen soft Urinary Catheter Management: Martel: Cath Placed During This Visit: yes, but has since been removed by the nurse Reason for Continuing Indwelling Catheter: Perioperative Use in Selected Surgeries Urinary Catheter Date of Insertion: 06/06/22 Urinary Catheter Time of Insertion: 08:01 Date Urinary Catheter Removed: 06/08/22 Time Urinary Catheter Discontinued: 05:08 Data 06/08/22 05:10 06/06/22 07:52 A&P Assessment and plan (1) Subcapital fracture of left hip: (2) Laceration of hand: Plan Awaiting placement I will give her aspirin at the time of discharge For now I am not changing any of her medications Unfortunately it is taking too long to get her accepted at a senior care Continue daily PT Hemodynamically stable Attestations Medical Necessity Statement*: Awaiting placement Time Spent in Patient Care: 5 Coding Level of Care Code Acute Melter Supervisor Oxygen Furnace for Caroline Fwd Diagnoses Subcapital fracture of left hip S72.012A Laceration of hand S61.419A
--- NOTE | 2022-06-12 13:55 | P.DS_ITS ---
Discharge Providers Date of Admission: 06/06/22 10:09 Date of Discharge: June 09, 2022 Attending Provider at Admission: Michael Syed MD Attending Provider at Discharge: Elenita Pedersen MD Primary Care Provider: Peter Tirado DO Diagnoses at Discharge Discharge Diagnosis (1) Subcapital fracture of left hip: Status: Acute (2) Lethargy: Status: Acute (3) Laceration of hand: Status: Acute (4) Hypertension: Status: Acute (5) CAD (coronary artery disease): Status: Acute (6) Fall: Status: Acute (7) Generalized weakness: Status: Acute (8) Recurrent UTI: Status: Acute (9) Parkinson's disease dementia: Status: Acute (10) Lives in assisted living facility: Status: Acute Reason for Visit Reason for Visit: LAC ON HAND Hospital Course Hospital Course 86-year female suffered from a hip fracture, went for intervention by Dr. Fleming on 06/07 for ORIF left subcapital hip fracture, no postop complications, patient remained hemodynamically stable, afebrile, her pain was well managed, she is from [facility], suffered from a fall in the bathroom. She is going for rehab at SNF. She does have mild parkinsonian disease as well history of dementia and coronary artery disease. manager of hospital has discussed with the family regarding private pay because [facility] not [facility] able to accept her back. Physical Exam Narrative: Resting comfortably in her bed Oriented to self Does not look to be in any distress Euvolemic Currently doing well on room air Hemodynamically stable S1, S2 No audible stridor or wheezing No focal deficit noted Urinary Catheter Management: Martel: Cath Placed During This Visit: yes, but has since been removed by the nurse Reason for Continuing Indwelling Catheter: Perioperative Use in Selected Surgeries Urinary Catheter Date of Insertion: 06/06/22 Urinary Catheter Time of Insertion: 08:01 Date Urinary Catheter Removed: 06/08/22 Time Urinary Catheter Discontinued: 05:08 Discharge Data Studies Completed and Pending Completed Studies During Hospitalization Category Date Time Status CT cervical spin wo con* [id number] Stat Cat Scan 06/06/22 07:[address] head wo con* [id number] Stat Cat Scan 06/06/22 07:[address] hip LT wo con* [id number] Stat Cat Scan 06/06/22 08:18 Completed XR chest 1V portable [id number] Stat Exams 06/06/22 07:09 Completed XR hand RT min 3V* [id number] Stat Exams 06/06/22 06:17 Completed XR hip LT 2-3V wo/w pel* [id number] Routine Exams 06/07/22 02:02 Completed XR hip LT 2-3V wo/w pel* [id number] Stat Exams 06/06/22 06:28 Completed Radiology Impressions Hand X-Ray 06/06/22 06:17 IMPRESSION: 1. No fracture or dislocation. 2. Soft tissue swelling in the 3rd digit with possible subcutaneous emphysema. 3. Osteoarthritic changes. Chest X-Ray 06/06/22 07:09 IMPRESSION: No acute findings. Cervical Spine CT 06/06/22 07:43 IMPRESSION: No acute fracture or traumatic malalignment identified within the cervical spine. Head CT 06/06/22 07:43 IMPRESSION: No acute intracranial abnormality. Hip CT 06/06/22 08:18 IMPRESSION: Subcapital femoral neck fracture. Hip/Pelvis X-Ray 06/07/22 02:02 IMPRESSION: 1. Satisfactory ORIF involving a subcapital fracture of the left hip. Laboratory Results WBC 12.8 10^3/uL (4.0-10.0) H 06/08/22 05:10 RBC 3.70 10^6/uL (4.1-5.3) L 06/08/22 05:10 Hgb 11.1 g/dL (11.5-15.3) L 06/08/22 05:10 Hct 34.5 % (37.0-47.0) L 06/08/22 05:10 MCV 93.2 fl (81-99) 06/08/22 05:10 MCH 30.0 pg (28.0-34.0) 06/08/22 05:10 MCHC 32.2 g/dL (30.0-36.0) 06/08/22 05:10 RDW 13.8 % (12.1-15.1) 06/08/22 05:10 Plt Count 183 10^3/cmm (130-400) 06/08/22 05:10 MPV 10.2 fL (7.4-10.4) 06/08/22 05:10 Neut % (Auto) 88.2 % 06/08/22 05:10 Lymph % (Auto) 3.6 % 06/08/22 05:10 Stanton % (Auto) 7.2 % 06/08/22 05:10 Eos % (Auto) 0.0 % 06/08/22 05:10 Baso % (Auto) 0.1 % 06/08/22 05:10 Neut # (Auto) 11.32 10^3/uL (1.8-7.7) H 06/08/22 05:10 Lymph # (Auto) 0.5 10^3/uL (0.8-4.8) L 06/08/22 05:10 Stanton # (Auto) 0.9 10^3/uL (0.2-0.9) 06/08/22 05:10 Eos # (Auto) 0.0 10^3/uL (0.0-0.8) 06/08/22 05:10 Baso # (Auto) 0.0 10^3/uL (0.0-0.1) 06/08/22 05:10 Nucleated RBC % (auto) 0 % 06/08/22 05:10 Nucleated RBCs # 0.0 /100WBC 06/08/22 05:10 PT 14.20 SECONDS (12.1-14.9) 06/06/22 07:52 INR 1.07 (0.8-1.2) 06/06/22 07:52 APTT 29.0 SECONDS (23.9-36.7) 06/06/22 07:52 Sodium 141 mmol/L (136-145) 06/06/22 07:52 Potassium 3.6 mmol/L (3.5-5.1) 06/06/22 07:52 Chloride 108 mmol/L (98-107) H 06/06/22 07:52 Carbon Dioxide 22 mmol/L (22-29) 06/06/22 07:52 Anion Gap 14.6 (5-19) 06/06/22 07:52 BUN 24 mg/dL (8-23) H 06/06/22 07:52 Creatinine 1.3 mg/dL (0.5-0.9) H 06/06/22 07:52 GFR Calculation Not Reportable 06/06/22 07:52 Glucose 98 mg/dL (65-115) 06/06/22 07:52 Calculated Osmolality 296 mOsm/kg (285-295) H 06/06/22 07:52 Calcium 9.8 mg/dL (8.5-10.5) 06/06/22 07:52 Magnesium 2.3 mg/dL (1.7-2.3) 06/06/22 07:52 Total Bilirubin 0.8 mg/dL (0.15-1.2) 06/06/22 07:52 AST 20 U/L (0-32) 06/06/22 07:52 ALT 13 U/L (0-33) 06/06/22 07:52 Alkaline Phosphatase 104 U/L (35-105) 06/06/22 07:52 Total Protein 7.2 g/dL (6.6-8.7) 06/06/22 07:52 Albumin 4.0 g/dL (3.5-5.2) 06/06/22 07:52 Globulin 3.2 g/dL (1.3-4.6) 06/06/22 07:52 TSH 2.57 uIU/mL (0.27-4.20) 06/06/22 07:52 Urine Color Straw (Yellow) 06/06/22 07:55 Urine Appearance Sl hazy (CLEAR) A 06/06/22 07:55 Urine pH 7 (5-7) 06/06/22 07:55 Ur Specific [place] 1.010 (1.005-1.030) 06/06/22 07:55 Urine Protein Trace (Negative) 06/06/22 07:55 Urine Glucose (UA) Norm (Normal) 06/06/22 07:55 Urine Ketones Negative (Negative) 06/06/22 07:55 Urine Blood 2+ (Negative) H 06/06/22 07:55 Urine Nitrate Negative (Negative) 06/06/22 07:55 Urine Bilirubin Neg (Negative) 06/06/22 07:55 Urine Urobilinogen Norm mg/dL (Negative) 06/06/22 07:55 Ur Leukocyte Esterase Negative (Negative) 06/06/22 07:55 Urine RBC 0-4 /hpf (0-2) H 06/06/22 07:55 Urine WBC 0-4 /hpf (0-5) H 06/06/22 07:55 Ur Squamous Epith Cells 0-4 /hpf (0-5) H 06/06/22 07:55 Amorphous Sediment Not Reportable 06/06/22 07:55 Urine Bacteria 1+ /hpf (NONE) H 06/06/22 07:55 Hyaline Casts 0-4 /lpf H 06/06/22 07:55 Coarse Granular Casts 0-4 /lpf H 06/06/22 07:55 Urine Mucus Trace /hpf 06/06/22 07:55 Vitals Last Vital Signs Temp 98.2 F 06/09/22 07:45 Pulse 68 06/09/22 07:45 Resp 18 06/09/22 07:45 BP 153/64 06/09/22 07:45 Pulse Ox 93 06/09/22 07:45 O2 Del Method 06/09/22 07:45 O2 Flow Rate 6 06/07/22 01:55 Discharge Plan Discharge Patient Disposition: Xfer SNF Condition: Stable Prescriptions: New lisinopril 5 mg Tablet 5 mg PO DAILY Qty: 30 0RF aspirin 325 mg tablet 325 mg PO DAILY Qty: 30 0RF Continued metoprolol succinate 50 mg tablet extended release 24 hr 50 mg PO DAILY amlodipine 5 mg tablet 5 mg PO DAILY Refresh Relieva 0.5-0.9 % Drops 1 drp ophthalmic (eye) DAILY@16 Systane Complete 0.6 % Drops 1 drp ophthalmic (eye) DAILY Discontinued aspirin 81 mg Tablet,Delayed Release (Dr/Ec) 81 mg PO DAILY rosuvastatin 40 mg tablet 40 mg PO DAILY Discharge Orders: Discharge Order (Routine); Ordered 06/12/22 Ordered By: Elenita Pedersen Referrals: [facility] [Outside] Peter Tirado DO [Primary Care Provider] - Purvi Zuniga MD [Physician] - 1 month Discharge Activity: Increase activity as tolerated, Limit activity as instructed and Use walker/crutches as instructed Activity Restrictions/Additional Instructions: Patient may be weightbearing as tolerated. Dressing can remain in place until it comes off on its own. No hip precautions. Discharge Attestations Time Spent in Discharge Care*: less than 30 min Status at Discharge: Cognitive status at discharge: mildly impaired cognition , Behavioral status at discharge: cooperative , Quality Metrics Clinical Quality Measures [ No reported AMI, CVA or VTE this stay] Coding Level of Care Code Acute Chg FW DC note Diagnoses Subcapital fracture of left hip S72.012A Lethargy R53.83 Laceration of hand S61.419A Hypertension I10 CAD (coronary artery disease) I25.10 Fall W19.XXXA Generalized weakness R53.1 Recurrent UTI N39.0 Parkinson's disease dementia G20; F02.80 Lives in assisted living facility Z59.3
[2022-06-12] MEDS: enoxaparin 30 mg/0.3 mL Syringe SUBCUT (14:09)
--- NOTE | 2022-06-12 15:09 | PC.NURSE ---
1450: [place] [facility] [place]
[2022-06-12 15:45] LABS: SARS Covid-2 Antigen negative (Negative)
== END 2022-06-12 18:25 | disposition skilled nursing facility (03) | DRG 482 ==
LOC: ER 09:50 → MEDSURG 10:10
PROVIDERS: Specialist; Admitting Provider Internal Medicine; Emergency Provider Family Medicine; PCP Family Medicine; Visit Provider Internal Medicine
PROC: (CPT 27236; principal; 2022-06-06 18:50)
DX: S72.012A Unspecified intracapsular fracture of left femur, initial encounter for closed fracture (principal); W18.30XA Fall on same level, unspecified, initial encounter; S61.411A Laceration without foreign body of right hand, initial encounter; G20 Parkinson's disease; F02.A0 Dementia in other diseases classified elsewhere, mild, without behavioral disturbance, psychotic disturbance, mood disturbance, and anxiety; I25.10 Atherosclerotic heart disease of native coronary artery without angina pectoris; Z98.61 Coronary angioplasty status; I12.9 Hypertensive chronic kidney disease with stage 1 through stage 4 chronic kidney disease, or unspecified chronic kidney disease; N18.2 Chronic kidney disease, stage 2 (mild); Z86.16 Personal history of COVID-19; K21.9 Gastro-esophageal reflux disease without esophagitis; Z85.3 Personal history of malignant neoplasm of breast; E78.5 Hyperlipidemia, unspecified; Z87.440 Personal history of urinary (tract) infections; Z87.891 Personal history of nicotine dependence; Z66 Do not resuscitate; Z75.1 Person awaiting admission to adequate facility elsewhere
CPT/HCPCS: 12004; 36415; 51702; 70450; 71045; 72125; 73130; 73502; 73700; 76000; 80053; 81001; 83735; 84443; 85025; 85610; 85730; 87426; 90471; 90714; 93005; 96372; 96374; 96375; 97110; 97116; 97161; 97530; 99285; C1713; J0131; J0690; J1100; J1170; J1650; J2001; J2250; J2270; J2370; J2405; J2704; J3010; J7030